=== PATIENT | female | born 1995 | race Caucasian/White ===

== ENCOUNTER 2016-10-02 15:01 | Inpatient (IN) | payer OTHER ==
--- NOTE | 2016-10-02 15:22 | ED ---
General Adult HPI - General Chief complaint: Psychiatric Symptoms Stated complaint: suicidal/arm lac Time Seen by Provider: 10/02/16 15:18 Source: patient, RN notes reviewed Mode of arrival: ambulatory Limitations: no limitations - History of Present Illness Initial comments: Patient 21-year-old female who presents emergency room today with a chief complaint of suicidal ideation. Does admit that she's been having thoughts of hurting herself. She is been a cutter. Does admit that she cut her left wrist earlier today. She does admit that she was having thoughts of committing suicide by taking her pills. She states she's attempted this in the past of her pills are locked up she was unable to do this. She does admit that she is new to the area. She does admit that she's been taking medications as prescribed. She denies any homicidal thoughts or plans. Denies any other physical complaints. States her tetanus is up-to-date. Patient denies any recent fever, chills, shortness of breath, chest pain, back pain, abdominal pain , nausea or vomiting, numbness or tingling, dysuria or hematuria, constipation or diarrhea, headaches or visual changes, or any other complaints. - Related Data Home Medications Medication Instructions Recorded Confirmed Desvenlafaxine Succinate [Pristiq 100 mg PO HS 10/02/16 10/02/16 ER] FLUoxetine HCL [PROzac] 20 mg PO HS 10/02/16 10/02/16 OLANZapine [ZyPREXA] 5 mg PO HS 10/02/16 10/02/16 OLANZapine [ZyPREXA] 20 mg PO HS 10/02/16 10/02/16 Topiramate [Topamax] 25 mg PO HS 10/02/16 10/02/16 lamoTRIgine [LaMICtal] 250 mg PO HS 10/02/16 10/02/16 Allergies Allergy/AdvReac Type Severity Reaction Status Date / Time Old [place] Seasoning Allergy Unknown Uncoded 10/02/16 15:58 Review of Systems ROS Statement: Those systems with pertinent positive or pertinent negative responses have been documented in the HPI. ROS Other: All systems not noted in ROS Statement are negative. Past Medical History Past Medical History: No Reported History History of Any Multi-Drug Resistant Organisms: None Reported Past Surgical History: No Surgical Hx Reported Past Psychological History: Anxiety, Depression Smoking Status: Current every day smoker Past Alcohol Use History: None Reported Past Drug Use History: None Reported General Exam - General Exam Comments Initial Comments: General: The patient is awake and alert, in no distress, and does not appear acutely ill. Eye: Pupils are equal, round and reactive to light, extra-ocular movements are intact. No nystagmus. There is normal conjunctiva bilaterally. No signs of icterus. Ears, nose, mouth and throat: There are moist mucous membranes and no oral lesions. Neck: The neck is supple, there is no tenderness or JVD. Cardiovascular: There is a regular rate and rhythm. No murmur, rub or gallop is appreciated. Respiratory: Lungs are clear to auscultation, respirations are non-labored, breath sounds are equal. No wheezes, stridor, rales, or rhonchi. Musculoskeletal: Normal ROM, no tenderness. Strength 5/5. Sensation intact. Pulses equal bilaterally 2+. Neurological: A&O x 3. CN II-XII intact, There are no obvious motor or sensory deficits. Coordination appears grossly intact. Speech is normal. Skin: Vision does have multiple superficial lacerations to the left wrist area. There is approximately 4 running horizontally measuring approximately 3 cm each. There is one running vertically measuring approximately 6 cm. Lacerations are superficial with no active bleeding. No deep tissue involvement. Psychiatric: Cooperative, appropriate mood & affect, normal judgment. Limitations: no limitations Course Vital Signs 10/02/16 15:12 Temperature 100.0 F H Pulse Rate 97 Respiratory 20 Rate Blood Pressure 130/78 O2 Sat by Pulse 96 Oximetry Medical Decision Making - Medical Decision Making Is was seen here by psych services and they recommended admission to the hospital. Patient is aware the plan and will be admitted. Patient's wounds to the left wrist were cleaned by nursing staff and had bacitracin placed over place with a sterile dressing. - Lab Data Lab Results 10/02/16 10/02/16 Range/Units 15:15 15:15 Urine HCG, Qual Not Detected (Not Detectd) Urine Opiates Screen Not Detected (NotDetected) Ur Oxycodone Screen Not Detected (NotDetected) Urine Methadone Screen Not Detected (NotDetected) Ur Propoxyphene Screen Not Detected (NotDetected) Ur Barbiturates Screen Not Detected (NotDetected) U Tricyclic Antidepress Not Detected (NotDetected) Ur Phencyclidine Scrn Not Detected (NotDetected) Ur Amphetamines Screen Not Detected (NotDetected) U Methamphetamines Scrn Not Detected (NotDetected) U Benzodiazepines Scrn Not Detected (NotDetected) Urine Cocaine Screen Not Detected (NotDetected) U Marijuana (THC) Screen Not Detected (NotDetected) Disposition Clinical Impression: Suicidal ideation Disposition: TRANSFER TO PSYCH HOSP/UNIT Condition: Stable Referrals: None,Stated [REFERRING] - 1-2 days Time of Disposition: 17:55
[2016-10-02] MEDS ORDERED: NICOTINE 14MG/24HR PATCH TRANSDERM STA (17:53)
[2016-10-02] MEDS ORDERED: ACETAMINOPHEN TAB 325 MG TAB PO PRN (19:29)
[2016-10-02] MEDS ORDERED: MAGNESIUM HYDROXIDE 2,400 MG/10 ML CUP PO PRN (19:29)
[2016-10-02] MEDS ORDERED: MAG HYDROX/AL HYDROX/SIMETH 30 ML CUP PO PRN (19:29)
[2016-10-02 19:54] LABS: Appearance,Urine Turbid (Clear); Bilirubin,Urine Negative (Negative); Glucose,Urine (UA) Negative (Negative); Ketones,Urine Negative (Negative); Leukocyte Esterase,Urine Large (Negative); Mucus,Urine Few /hpf; Nitrite,Urine Negative (Negative); PH, Urine 6.5 (5.0-8.0); Particle Count 22949; Protein,Urine 1+ (Negative); RBC,Urine 2 /hpf (0-5); Specific Gravity,Urine 1.023 (1.001-1.035); Squamous Epithelial Cell,Urine 34 /hpf (0-4); UA Billing (MACRO vs. MICRO) MICRO; Urobilinogen,Urine <2.0 mg/dL (<2.0); WBC,Urine 25 /hpf (0-5)
[2016-10-02] MEDS: lamoTRIgine 100 MG TAB PO SCH (21:21)
[2016-10-02] MEDS: TOPIRAMATE 25 MG TAB PO SCH (21:22)
[2016-10-02] MEDS: OLANZapine 10 MG TAB PO SCH (21:22)
[2016-10-02] MEDS: OLANZapine 5 MG TAB PO SCH (21:22)
[2016-10-03] MEDS: DESVENLAFAXINE SUCCINATE 50 MG TAB.ER.24H PO SCH ×2 (00:29→22:20)
[2016-10-03 08:39] LABS: Basophils % (A) 0 %; CHCM 32.9; Eosinophils % (A) 0 %; HCT 45.7 % (34.0-46.0); HDW 2.54; Luc # (Auto) 0.13; Luc % (Auto) 2; Lymphocytes # (A) 2.3 k/uL (1.0-4.8); Lymphocytes % (A) 43 %; MCHC 32.7 g/dL (31.0-37.0); MCV 88.6 fL (80.0-100.0); Mean Platelet Volume 6.8; Monocytes # (A) 0.3 k/uL (0-1.0); Monocytes % (A) 5 %; Neutrophils # (A) 2.6 k/uL (1.3-7.7); Neutrophils % (A) 49 %; RBC 5.16 m/uL (3.80-5.40); RDW 12.8 % (11.5-15.5); WBC 5.3 k/uL (4.0-11.0); WBC (Perox) 5.37
[2016-10-03 09:02] LABS: ALT 131 U/L (9-52); AST 89 U/L (14-36); Alkaline Phosphatase 107 U/L (38-126); Anion Gap 12 mmol/L; Blood Urea Nitrogen 12 mg/dL (7-17); Calcium 10.1 mg/dL (8.4-10.2); Carbon Dioxide 26 mmol/L (22-30); Chloride 105 mmol/L (98-107); Glucose 98 mg/dL (74-99); Non-African American GFR(MDRD) >60 (>60 ml/min/1.73 sqM); Sodium 143 mmol/L (137-145); Total Bilirubin 0.6 mg/dL (0.2-1.3)
[2016-10-03] MEDS: NICOTINE 14MG/24HR PATCH TRANSDERM SCH (09:24)
[2016-10-03 10:00] LABS: Total Protein 7.8 g/dL (6.3-8.2)
[2016-10-03] MEDS ORDERED: LEVOFLOXACIN 500 MG TAB PO SCH (17:00)
--- NOTE | 2016-10-03 20:14 | CONS ---
Erik Silver is a 21 year old female who presented to the ED at [facility] with suicidal ideations. She had been having thoughts of hurting herself. She had a cutter and she cut her wrists earlier today. She subsequently was admitted for further evaluation and management. Her past medical history is positive for anxiety depression. She is a current every day smoker and it was thought that she may have been starting either asthma or COPD. Family history is negative for asthma and COPD. Medications prior to admission were: 1. ( ). 2. ( ). 3. Fluoxetine. 4. ( ). 5. Topamax. Review of systems is noncontributory. On physical examination, blood pressure 100/59. Respiratory rate is 15. Pulse rate 114. Temperature 97.1. T-max of 100 degrees Fahrenheit. HEENT is unremarkable. Chest is clear. Cardiovascular system reveals S1, S2. Abdomen is soft. There is no pedal edema. UA shows large leukocyte esterase. White count is 5.3. Hemoglobin 15. Sodium 143. Potassium 4. Chloride 105. Bicarb 26. BUN 12, creatinine 0.92. AST 89. ALT 131. IMPRESSION: 1. Depression with suicidal ideation. 2. Urinary tract infection. At this point in time, would add Levaquin to her regimen. Check urine C&S. Continue nicotine patch. Depending on how she does, we shall make further changes to her care. NINO
[2016-10-03] MEDS: OLANZapine 10 MG TAB PO SCH (22:20)
[2016-10-03] MEDS: OLANZapine 5 MG TAB PO SCH (22:20)
[2016-10-03] MEDS: lamoTRIgine 100 MG TAB PO SCH (22:20)
[2016-10-03] MEDS: TOPIRAMATE 25 MG TAB PO SCH (22:26)
[2016-10-04 06:35] VITALS: BP 111/71; PULSE 85; RESP 17; TEMP 97.9
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
[2016-10-04] MEDS: NICOTINE 14MG/24HR PATCH TRANSDERM SCH ×2 (10:18→10:48)
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
== END 2016-10-04 15:27 | disposition home or self-care (01) | DRG 883 ==
LOC: EC 15:01 → 3MHU 19:12
PROVIDERS: ADMIT Psychiatry & Neurology Addiction Medicine; ATTEND Psychiatry & Neurology Addiction Medicine
DX: F60.3 Borderline personality disorder (principal); R45.851 Suicidal ideations; N39.0 Urinary tract infection, site not specified; F32.9 Major depressive disorder, single episode, unspecified; S61.512A Laceration without foreign body of left wrist, initial encounter; F17.200 Nicotine dependence, unspecified, uncomplicated; X78.8XXA Intentional self-harm by other sharp object, initial encounter; Z79.899 Other long term (current) drug therapy
CPT/HCPCS: 80053; 80306; 81001; 81025; 82075; 84443; 85025; 99285

== ENCOUNTER 2016-12-10 07:23 | Emergency (ER) | payer OTHER ==
[2016-12-10 07:28] VITALS: RESP 18
[2016-12-10] MEDS ORDERED: DEXAMETHASONE SOD PHOSPHATE 10 MG/ML 1 ML VIAL IM STA (07:47)
[2016-12-10] MEDS ORDERED: IPRATROPIUM-ALBUTEROL 3 ML NEB INHALATION STA (07:47)
--- NOTE | 2016-12-10 07:51 | ED ---
General Adult HPI - General Chief complaint: Nausea/Vomiting/Diarrhea Stated complaint: vomiting Time Seen by Provider: 12/10/16 07:34 Source: patient, RN notes reviewed Mode of arrival: ambulatory Limitations: no limitations - History of Present Illness Initial comments: 21-year-old female presents with 2 day history of cough and mild sore throat. Patient has past medical history of schizophrenia and depression. Her main concern and reason for evaluation once episode of hemoptysis. Patient states she had a coughing spell, was followed by an episode of vomiting which had some small amount of blood in it. Patient reports after this episode she began coughing again there was blood-tinged mucus. Patient denies fever or chills. Denies abdominal pain. Denies difficulty breathing. Patient has no history of asthma. Denies calf tenderness. - Related Data Home Medications Medication Instructions Recorded Confirmed Desvenlafaxine Succinate [Pristiq 100 mg PO HS 10/02/16 10/02/16 ER] FLUoxetine HCL [PROzac] 20 mg PO HS 10/02/16 10/02/16 OLANZapine [ZyPREXA] 5 mg PO HS 10/02/16 10/02/16 OLANZapine [ZyPREXA] 20 mg PO HS 10/02/16 10/02/16 Topiramate [Topamax] 25 mg PO HS 10/02/16 10/02/16 lamoTRIgine [LaMICtal] 250 mg PO HS 10/02/16 10/02/16 Previous Rx's Medication Instructions Recorded Levofloxacin [Levaquin] 500 mg PO Q24H #9 tab 10/04/16 Azithromycin [Zithromax Z-pack] 0 mg PO DIRECTED #6 tab 12/10/16 Allergies Allergy/AdvReac Type Severity Reaction Status Date / Time [facility] Seasoning Allergy Unknown Uncoded 12/10/16 07:28 Review of Systems ROS Statement: Those systems with pertinent positive or pertinent negative responses have been documented in the HPI. ROS Other: All systems not noted in ROS Statement are negative. Past Medical History Past Medical History: No Reported History History of Any Multi-Drug Resistant Organisms: None Reported Past Surgical History: No Surgical Hx Reported Past Psychological History: Anxiety, Depression Smoking Status: Current every day smoker Past Alcohol Use History: None Reported Past Drug Use History: None Reported General Exam Limitations: no limitations General appearance: alert, in no apparent distress Head exam: Present: atraumatic, normocephalic Eye exam: Present: normal appearance, PERRL ENT exam: Present: normal exam, mucous membranes moist, other (No pharyngeal erythema, no tonsillar swelling or exudate) Neck exam: Present: normal inspection. Absent: tenderness Respiratory exam: Present: normal lung sounds bilaterally, other ( Bronchospastic cough). Absent: respiratory distress Cardiovascular Exam: Present: regular rate, normal rhythm GI/Abdominal exam: Present: soft. Absent: distended, tenderness Extremities exam: Present: normal inspection, normal capillary refill. Absent: pedal edema, calf tenderness Back exam: Present: normal inspection Neurological exam: Present: alert, oriented X3 Psychiatric exam: Present: normal affect, normal mood Skin exam: Present: warm, dry. Absent: cyanosis, diaphoretic Course Vital Signs 12/10/16 12/10/16 12/10/16 07:27 08:07 08:15 Temperature 97.7 F Pulse Rate 75 80 80 Respiratory 18 Rate Blood Pressure 114/69 O2 Sat by Pulse 99 Oximetry - Reevaluation(s) Reevaluation #1: 12/10/16 08:19 Patient is given nebulized albuterol with improvement in bronchospastic cough Medical Decision Making - Medical Decision Making 21-year-old otherwise healthy female presents with episode of hemoptysis. Patient has had 2 day history of cough and mild sore throat. On examination patient is not in any distress. Lung sounds are clear bilaterally with good air entry, there is a bronchospastic cough. Heart rate and oxygen saturation are unremarkable. Exam of the posterior oropharynx is within normal limits. Patient is given nebulized albuterol with improvement of cough. Chest x-ray shows no acute process, no focal pneumonia. Patient will be treated for acute bronchitis. She'll follow-up with her primary care physician. Diagnosis: Acute bronchitis Disposition Clinical Impression: Acute bronchitis Disposition: HOME SELF-CARE Condition: Good Instructions: Acute Bronchitis (ED) Prescriptions: Azithromycin [Zithromax Z-pack] 0 mg PO DIRECTED #6 tab Referrals: None,Stated [Primary Care Provider] - 1-2 days Time of Disposition: 08:23
--- NOTE | 2016-12-10 08:14 | XR ---
EXAMINATION TYPE: XR chest 2V DATE OF EXAM: 12/10/2016 HISTORY: Pain. REFERENCE: NONE. FINDINGS: The lungs are clear. Pleural spaces are clear. The heart is not enlarged. No pneumothorax i s identified. IMPRESSION: NORMAL CHEST.
[2016-12-10 08:56] VITALS: BP 110/56; PULSE 69; TEMP 97
== END 2016-12-10 08:56 | disposition home or self-care (01) ==
LOC: EC 07:23
DX: J20.9 Acute bronchitis, unspecified (principal); F41.9 Anxiety disorder, unspecified; F32.9 Major depressive disorder, single episode, unspecified; F17.200 Nicotine dependence, unspecified, uncomplicated; Z79.899 Other long term (current) drug therapy; Z91.018 Allergy to other foods
CPT/HCPCS: 94640; 71020; 99284; 96372; J1100

== ENCOUNTER 2016-12-22 15:34 | Inpatient (IN) | payer OTHER ==
--- NOTE | 2016-12-22 16:23 | ED ---
Psych HPI - General Chief Complaint: Psychiatric Symptoms Stated Complaint: Mental Health. Wrist laceration Time Seen by Provider: 12/22/16 15:43 Source: patient, family, RN notes reviewed Mode of arrival: wheelchair Limitations: no limitations - History of Present Illness Initial Comments: This a 21-year-old female presents emergency Department with marked chief complaint depression, suicidal ideation, left arm lacerations. Patient has an extensive psychiatric history which includes major depressive disorder, drug overdoses, self harming. Patient states that she is depressed and suicidal though she is taking her medications are helping. Patient states she cut her left wrist 3 times with a razor blade. Patient is up-to-date on her tetanus. Patient states she does drink alcohol on a regular basis but states that she denies any illicit drug use. - Related Data Home Medications Medication Instructions Recorded Confirmed OLANZapine [ZyPREXA] 5 mg PO HS 10/02/16 12/22/16 OLANZapine [ZyPREXA] 20 mg PO HS 10/02/16 12/22/16 Topiramate [Topamax] 25 mg PO HS 10/02/16 12/22/16 FLUoxetine HCL [PROzac] 40 mg PO HS 12/22/16 12/22/16 buPROPion HCL [Wellbutrin SR] 150 mg PO BID 12/22/16 12/22/16 lamoTRIgine [LaMICtal Xr] 250 mg PO HS 12/22/16 12/22/16 Allergies Allergy/AdvReac Type Severity Reaction Status Date / Time [place] Seasoning Allergy Unknown Uncoded 12/22/16 16:07 Review of Systems ROS Statement: Those systems with pertinent positive or pertinent negative responses have been documented in the HPI. ROS Other: All systems not noted in ROS Statement are negative. Past Medical History Past Medical History: No Reported History Additional Past Medical History / Comment(s): codiene induced encephalapathy History of Any Multi-Drug Resistant Organisms: None Reported Past Surgical History: No Surgical Hx Reported Past Psychological History: Anxiety, Bipolar, Depression, Schizoaffective Disorder Smoking Status: Current every day smoker Past Alcohol Use History: None Reported Past Drug Use History: None Reported General Exam Limitations: no limitations General appearance: alert, in no apparent distress Head exam: Present: atraumatic, normocephalic, normal inspection Eye exam: Present: normal appearance, PERRL, EOMI. Absent: scleral icterus, conjunctival injection, periorbital swelling ENT exam: Present: normal exam, normal oropharynx, mucous membranes moist, TM's normal bilaterally, normal external ear exam Neck exam: Present: normal inspection, full ROM. Absent: tenderness, meningismus, lymphadenopathy Respiratory exam: Present: normal lung sounds bilaterally. Absent: respiratory distress, wheezes, rales, rhonchi, stridor Cardiovascular Exam: Present: regular rate, normal rhythm, normal heart sounds. Absent: systolic murmur, diastolic murmur, rubs, gallop, clicks Extremities exam: Present: other (Left wrist region, volar surface there are 2 lacerations that are 6 cm long, no deep tendon involvement) Course Vital Signs 12/22/16 15:36 Temperature 98.3 F Pulse Rate 100 Respiratory 18 Rate Blood Pressure 114/70 O2 Sat by Pulse 98 Oximetry Procedures - Laceration Laceration #1 Consent Obtained: verbal consent Indication: laceration Site: upper extremity (Left forearm) Size (cm): 6 Description: linear Depth: simple, single layer Anesthetic Used: lidocaine 1%, without epi Anesthesia Technique: local infiltration Amount (mls): 6 Pre-repair: wound explored, irrigated extensively, deep structures intact Type of Sutures: nylon Size of Sutures: 4-0 Number of Sutures: 12 Technique: simple, interrupted Patient Tolerated Procedure: well, no complications Laceration #2 Consent Obtained: verbal consent Indication: laceration Site: upper extremity (Left forearm, wrist region) Size (cm): 6 Description: linear Depth: simple, single layer Anesthetic Used: lidocaine 1%, without epi Anesthesia Technique: local infiltration Amount (mls): 5 Pre-repair: wound explored, irrigated extensively, deep structures intact Type of Sutures: nylon Size of Sutures: 4-0 Number of Sutures: 9 Technique: running Patient Tolerated Procedure: well, no complications Medical Decision Making - Lab Data Lab Results 12/22/16 Range/Units 17:45 Urine Opiates Screen Not Detected (NotDetected) Ur Oxycodone Screen Not Detected (NotDetected) Urine Methadone Screen Not Detected (NotDetected) Ur Propoxyphene Screen Not Detected (NotDetected) Ur Barbiturates Screen Not Detected (NotDetected) U Tricyclic Antidepress Not Detected (NotDetected) Ur Phencyclidine Scrn Not Detected (NotDetected) Ur Amphetamines Screen Not Detected (NotDetected) U Methamphetamines Scrn Not Detected (NotDetected) U Benzodiazepines Scrn Not Detected (NotDetected) Urine Cocaine Screen Not Detected (NotDetected) U Marijuana (THC) Screen Not Detected (NotDetected) Disposition Clinical Impression: Suicidal ideation, Depression Disposition: ADMITTED IP TO THIS [facility] Condition: Stable Referrals: Kenyon Thakkar MD [Primary Care Provider] - 1-2 days
[2016-12-22 21:54] VITALS: BMI 36.2
[2016-12-22] MEDS ORDERED: MAGNESIUM HYDROXIDE 2,400 MG/10 ML CUP PO PRN (21:57)
[2016-12-22] MEDS ORDERED: LORazepam 1 MG TAB PO PRN (21:57)
[2016-12-22] MEDS ORDERED: ACETAMINOPHEN TAB 325 MG TAB PO PRN (21:57)
[2016-12-22] MEDS ORDERED: MAG HYDROX/AL HYDROX/SIMETH 30 ML CUP PO PRN (21:57)
[2016-12-23] MEDS ORDERED: buPROPion SR 150 MG TABLET.ER PO SCH (09:00)
[2016-12-23] MEDS: lamoTRIgine 100 MG TAB PO SCH ×2 (09:01→20:09)
[2016-12-23] MEDS: lamoTRIgine 25 MG TAB PO SCH ×2 (09:01→20:09)
[2016-12-23] MEDS: NICOTINE 14MG/24HR PATCH TRANSDERM SCH (09:01)
[2016-12-23 09:38] LABS: Basophils % (A) 0 %; CH 30.8; CHCM 33.4; Eosinophils % (A) 0 %; HCT 42.3 % (34.0-46.0); HDW 2.31; HGB 13.9 gm/dL (11.4-16.0); Luc # (Auto) 0.09; Luc % (Auto) 2; Lymphocytes # (A) 1.8 k/uL (1.0-4.8); Lymphocytes % (A) 31 %; MCH 30.4 pg (25.0-35.0); MCHC 32.8 g/dL (31.0-37.0); MCV 92.6 fL (80.0-100.0); Mean Platelet Volume 7.4; Monocytes # (A) 0.4 k/uL (0-1.0); Monocytes % (A) 7 %; Neutrophils # (A) 3.6 k/uL (1.3-7.7); Neutrophils % (A) 61 %; RBC 4.57 m/uL (3.80-5.40); RDW 14.1 % (11.5-15.5); WBC 5.9 k/uL (4.0-11.0); WBC (Perox) 5.97
[2016-12-23 10:15] LABS: ALT 61 U/L (9-52); AST 32 U/L (14-36); Alkaline Phosphatase 97 U/L (38-126); Anion Gap 12 mmol/L; Blood Urea Nitrogen 12 mg/dL (7-17); Calcium 9.6 mg/dL (8.4-10.2); Carbon Dioxide 24 mmol/L (22-30); Chloride 103 mmol/L (98-107); Glucose 114 mg/dL (74-99); Non-African American GFR(MDRD) >60 (>60 ml/min/1.73 sqM); Potassium 3.6 mmol/L (3.5-5.1); Sodium 139 mmol/L (137-145); Total Bilirubin 0.5 mg/dL (0.2-1.3); Total Protein 7.2 g/dL (6.3-8.2)
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
--- NOTE | 2016-12-23 17:59 | CONS ---
CONSULTATION CHIEF COMPLAINT: Major depression with cutting. HISTORY OF PRESENT ILLNESS: This is another admission this 21-year-old, A0 white female who presents to the emergency room on her own volition because of depression and she started cutting her left forearm. She has had a long history of psychiatric issues and is diagnosed as having bipolar depression. She is on Topamax 25 mg q.h.s., Ventolin HFA, Zyprexa 25 mg at bedtime, Lamictal 250 mg at night. REVIEW OF SYSTEMS: She has had no headaches, change in vision or the hearing, chest pain, no cough, shortness of breath, hemoptysis, hypertension, heart disease, murmurs, rheumatic fever, abdominal pain, nausea, vomiting, diarrhea, melena, hematochezia, jaundice, hematuria, frequency, urgency, renal disease, diabetes, etc. PAST MEDICAL HISTORY: Past Medical history, family history, Personal and social history reveal she is not allergic to any medication. She does not smoke. She recently had Wellbutrin added to her med regimen. PHYSICAL EXAM: Blood pressure 108/88, pulse 86, respirations 16, temperature 95.4. General she appeared to be slightly overweight in no acute distress. Skin color is normal. Skin is warm, dry. Lymph nodes not enlarged. Head, ears, eyes, nose, mouth and throat were normal. Neck veins not distended. Thyroid is not enlarged. Chest is clear. Cardiac exam is normal. Abdomen soft nontender. Extremities normal. Neurological is intact. ASSESSMENT: She was admitted to the hospital with diagnoses of: 1. Acute episode of depression. 2. Bipolar depression. 3. Asthmatic bronchitis. RECOMMENDATIONS: None. MMODL / IJN: [id number] /
[2016-12-23] MEDS: FLUoxetine HCL 20 MG CAP PO SCH (20:08)
[2016-12-23] MEDS: OLANZapine 5 MG TAB PO SCH (20:09)
[2016-12-23] MEDS: OLANZapine 10 MG TAB PO SCH (20:09)
[2016-12-23] MEDS ORDERED: FLUoxetine HCL 20 MG CAP PO SCH (21:00)
[2016-12-23] MEDS ORDERED: TOPIRAMATE 25 MG TAB PO SCH (21:00)
[2016-12-24] MEDS: NICOTINE 14MG/24HR PATCH TRANSDERM SCH (08:02)
[2016-12-24] MEDS: lamoTRIgine 100 MG TAB PO SCH ×2 (08:02→20:42)
[2016-12-24] MEDS: lamoTRIgine 25 MG TAB PO SCH ×2 (08:03→20:42)
[2016-12-24] MEDS: buPROPion SR 150 MG TABLET.ER PO SCH (08:03)
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
[2016-12-24] MEDS: OLANZapine 5 MG TAB PO SCH (20:42)
[2016-12-24] MEDS: FLUoxetine HCL 20 MG CAP PO SCH (20:42)
[2016-12-24] MEDS: OLANZapine 10 MG TAB PO SCH (20:42)
[2016-12-25] MEDS: lamoTRIgine 25 MG TAB PO SCH ×2 (09:28→20:20)
[2016-12-25] MEDS: NICOTINE 14MG/24HR PATCH TRANSDERM SCH (09:28)
[2016-12-25] MEDS: buPROPion SR 150 MG TABLET.ER PO SCH (09:29)
[2016-12-25] MEDS: lamoTRIgine 100 MG TAB PO SCH ×2 (09:29→20:20)
--- NOTE | 2016-12-25 12:03 | P.PN ---
Progress Note - Text Interval history: The patient is found in her room lying in bed she follows me to an interview room. She reports her mood is "fine". She states her mother did visit last evening and they discussed outpatient plans. The patient would like to return to her mother's home however it appears her mother may have some apprehension. The patient reports participating in some groups. Appetite stable she was able to get some fragmented sleep but there were disturbances on the mental health unit last evening. She has no questions or concerns regarding her current medications. Mental status exam: The patient is an overweight female dressed in her own clothing. Hygiene grooming adequate. In general she is cooperative but participates in the session in a limited fashion. She mainly answers questions asked of her. She states she is experiencing no suicidal or homicidal ideation intent or plan, she reports no auditory or visual hallucinations or specific delusions. There is no observable evidence of psychosis. She demonstrates no tangential thinking loose associations or quite of ideas, she does not appear hypomanic or manic. Insight and judgment limited. She demonstrates no abnormal involuntary movements. She demonstrates no verbal or physical aggressiveness. Her affect is rather bland throughout the session with little reactivity. Plan: The patient will continue on her current psychotropic medications. She is encouraged to fully participate in the milieu. Vital signs reviewed. We will continue to monitor her for safety.
[2016-12-25] MEDS: OLANZapine 10 MG TAB PO SCH (20:20)
[2016-12-25] MEDS: FLUoxetine HCL 20 MG CAP PO SCH (20:21)
[2016-12-25] MEDS: OLANZapine 5 MG TAB PO SCH (20:22)
[2016-12-26] MEDS: lamoTRIgine 25 MG TAB PO SCH (08:44)
[2016-12-26] MEDS: lamoTRIgine 100 MG TAB PO SCH ×2 (08:44→21:22)
[2016-12-26] MEDS: NICOTINE 14MG/24HR PATCH TRANSDERM SCH (08:44)
[2016-12-26] MEDS: buPROPion SR 150 MG TABLET.ER PO SCH (08:44)
--- NOTE | 2016-12-26 15:06 | PN ---
PROGRESS NOTE DATE OF SERVICE: 12/26/2016 CHIEF COMPLAINT: The patient was depressed. She has long-term difficulty with mood disorder. She has had multiple past drug overdoses. She had suicidal thinking and had cut her left wrist 3 times leading up to this hospitalization. INTERVAL HISTORY: Patient has been doing fair as noted from progress notes of Dr. Hameed. She did fairly well over the weekend. She felt there was a stressful family meeting on Monday with her and her mother. Over the weekend her and her mother talked and seemed to make progress in terms of better communication. On Monday she had a distressing event in that the woman that she described as her "fiance" called and broke up with her. Apparently, the woman said some harsh things over the telephone. On the other hand, the person then visited on the weekend and they seem to be a little more relaxed in their interactions, though the plan was to continue to disconnect in their relationship. Patient slept fair amount on the weekend. She continues to report some depressive symptoms. We had a family meeting with the patient and her mother today. It is noteworthy that they did seem to have better communication where the mother was able to be a little more reserved in her input it is noted that father has a court hearing tomorrow in regards to the no-contact order did make contact with the courts to request the possibility of a family meeting involving the father, in addition I gave information to the courts that the patient is in support of the lifting of the no- contact order. At this point mother indicated that if the contact order continues, that the patient would need to find alternative housing as it appeared to be difficult that father would be able to find a place outside of the house. Otherwise, the plan was for the patient to move back home. We discussed a number of issues in regards to planning and followup care if the patient does return home. The patient has not had change in her general health. She tolerates his psychotropic medications. MENTAL STATUS: Patient gave fair eye contact. Psychomotor activity was a little slow, speech was somewhat monotone. She answered questions with direct responses. Her thoughts were clear, her affect was a little blunted. She had a quiet manner. Her mood was even. She was not significantly distressed. ASSESSMENT: I will continue the current diagnosis and treatment plan. I will discontinue Wellbutrin since the aim at this point is to maximize her antidepressant. I will reduce her Zyprexa from 25 mg a day down to 20 mg a day, in part to try to simplify her medications and she does have some trouble managing her medications at home. Likewise, I will reduce her Lamictal from 125 mg twice a day down to 100 mg twice a day. She will continue Prozac 60 mg a day. There might be consideration for titrating up on Prozac. We will see if were able to set up a family meeting involving the father as part of discharge planning. I had an extensive discussion with the patient regarding interventions that may help her overall condition. One would be a walking program to help improve energy and motivation. We discussed the option of her setting up an appointment with Dr. Esquivel, [facility] who did general psych testing to get a further review and to get some input on interventions for the areas that she has weakness. We discussed the option of some Internet judy as well as some physical activity that might help in areas where she has had some deficits. We talked about her getting a daily operations planner so that she can help organize things and be a little more self directive as opposed to getting in a situation where she becomes overly dependent on her mother, which seems to create stressful for her and her mother. Once we did make a determination about housing issues, we would look for discharge in the next few days. CHUCK / CAROLINE: [id number] /
[2016-12-26] MEDS: FLUoxetine HCL 20 MG CAP PO SCH (21:21)
[2016-12-26] MEDS: OLANZapine 10 MG TAB PO SCH (21:22)
[2016-12-27] MEDS: NICOTINE 14MG/24HR PATCH TRANSDERM SCH (09:50)
[2016-12-27] MEDS: lamoTRIgine 100 MG TAB PO SCH ×2 (09:50→20:45)
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
[2016-12-27] MEDS: FLUoxetine HCL 20 MG CAP PO SCH (20:44)
[2016-12-27] MEDS: OLANZapine 10 MG TAB PO SCH (20:45)
[2016-12-27] MEDS ORDERED: OLANZapine 5 MG TAB PO SCH (21:00)
[2016-12-28 06:40] VITALS: BP 107/72; PULSE 67; RESP 16; TEMP 97.4
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
[2016-12-28] MEDS: NICOTINE 14MG/24HR PATCH TRANSDERM SCH (09:18)
[2016-12-28] MEDS: lamoTRIgine 100 MG TAB PO SCH (09:18)
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
== END 2016-12-28 16:55 | disposition home or self-care (01) | DRG 885 ==
LOC: EC 15:34 → 3MHU 20:24
PROVIDERS: ADMIT Psychiatry & Neurology Psychiatry; ATTEND Psychiatry & Neurology Psychiatry
PROC: 0HQEXZZ Repair Left Lower Arm Skin, External Approach (ICD-10-PCS; principal; 2016-12-22)
DX: F33.2 Major depressive disorder, recurrent severe without psychotic features (principal); R45.851 Suicidal ideations; F25.9 Schizoaffective disorder, unspecified; F17.200 Nicotine dependence, unspecified, uncomplicated; S51.812A Laceration without foreign body of left forearm, initial encounter; S61.512A Laceration without foreign body of left wrist, initial encounter; F43.10 Post-traumatic stress disorder, unspecified; F90.9 Attention-deficit hyperactivity disorder, unspecified type; F41.9 Anxiety disorder, unspecified; G47.9 Sleep disorder, unspecified; G31.84 Mild cognitive impairment of uncertain or unknown etiology; J45.909 Unspecified asthma, uncomplicated; E66.3 Overweight; Z79.899 Other long term (current) drug therapy; Z91.5 Personal history of self-harm; Z62.810 Personal history of physical and sexual abuse in childhood; X78.9XXA Intentional self-harm by unspecified sharp object, initial encounter; Y04.0XXA Assault by unarmed brawl or fight, initial encounter
CPT/HCPCS: 12004; 80053; 80306; 82075; 84443; 85025; 99285

== ENCOUNTER 2017-04-11 04:13 | Inpatient (IN) | payer OTHER ==
[2017-04-11] MEDS ORDERED: SODIUM CHLORIDE 0.9% 500 ML IV STA (04:33)
[2017-04-11] MEDS ORDERED: LORazepam 2 MG/ML INJ IV STA ×2 (04:44→22:33)
[2017-04-11] MEDS ORDERED: TOPICAL SKIN ADHESIVE 1 EACH AMP TOPICAL ONE ×2 (04:45)
[2017-04-11 04:50] LABS: Basophils % (A) 0 %; Eosinophils % (A) 0 %; HCT 41.1 % (34.0-46.0); HGB 13.6 gm/dL (11.4-16.0); Lymphocytes # (A) 1.9 k/uL (1.0-4.8); Lymphocytes % (A) 31 %; MCH 29.7 pg (25.0-35.0); MCHC 33.2 g/dL (31.0-37.0); MCV 89.4 fL (80.0-100.0); Mean Platelet Volume 6.7; Monocytes # (A) 0.5 k/uL (0-1.0); Monocytes % (A) 8 %; Neutrophils # (A) 3.6 k/uL (1.3-7.7); Neutrophils % (A) 58 %; Platelet Count 257 k/uL (150-450); RDW 12.2 % (11.5-15.5); WBC 6.2 k/uL (4.0-11.0)
[2017-04-11 05:03] LABS: ALT 53 U/L (9-52); AST 26 U/L (14-36); Acetaminophen <10.0 ug/mL; Albumin 3.9 g/dL (3.5-5.0); Alcohol <10 mg/dL; Alkaline Phosphatase 89 U/L (38-126); Anion Gap 11 mmol/L; Blood Urea Nitrogen 16 mg/dL (7-17); Calcium 9.9 mg/dL (8.4-10.2); Carbon Dioxide 25 mmol/L (22-30); Chloride 106 mmol/L (98-107); Glucose 104 mg/dL (74-99); Potassium 3.7 mmol/L (3.5-5.1); Salicylate <1.0 mg/dL; Sodium 142 mmol/L (137-145); Total Bilirubin 0.2 mg/dL (0.2-1.3); Total Protein 6.7 g/dL (6.3-8.2)
[2017-04-11 06:30] LABS: Amphetamine Screen,Urine Not Detected (NotDetected); Barbiturate Screen,Urine Not Detected (NotDetected); Benzodiazepines Screen,Urine Detected (NotDetected); Cocaine Screen,Urine Not Detected (NotDetected); Methadone Screen, Urine Not Detected (NotDetected); Opiate Screen,Urine Not Detected (NotDetected); Oxycodone Screen, Urine Not Detected (NotDetected); Phencyclidine Screen,Urine Not Detected (NotDetected); Tricyclic Antidepressant,Urine Detected (NotDetected); Urn Cannabinoid Scrn Not Detected (NotDetected)
[2017-04-11] MEDS ORDERED: NALOXONE 0.4 MG/ML 1 ML VIAL IV PRN (06:46)
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
[2017-04-11] MEDS: SODIUM CHLORIDE 0.9% 1,000 ML IV SCH ×2 (07:00→20:00)
[2017-04-11] MEDS: FAMOTIDINE 20 MG/2 ML VIAL IV SCH ×2 (10:18→21:02)
[2017-04-11] MEDS ORDERED: IPRATROPIUM-ALBUTEROL 3 ML NEB INHALATION PRN (10:47)
--- NOTE | 2017-04-11 10:48 | P.CNPUL ---
<ErickDelilah darling - Last Filed: 04/11/17 10:30> History of Present Illness Consult date: 04/11/17 Requesting physician: Kenyon Thakkar Reason for consult: other Chief complaint: Suicide attempt History of present illness: This is a 21-year-old female patient with a known history of chronic major recurrent depression. She is also a cutter. She has had approximately 10 suicide attempts in the past. She was most recently hospitalized here in December 2016. She and her parents had recently moved to the [facility] back in July 2016. Prior to that she had been treated by psychiatrists and both [facility]. She was brought in here to the emergency room approximate 4:30 this morning after calling her parents from her bedroom stating that she took multiple pills in an attempt to harm her self. There is also some self-inflicted lacerations of the left wrist. She is seen in consultation in the emergency room. She is still somewhat obtunded. She is able to protect her airways currently. Maintain O2 saturations in the high 90s on 2 L/m per nasal cannula. She slightly tachycardic sinus. Her EKG is reviewed. No prolongation of the QT interval noted. She's been hemodynamically stable. Her CBC and electrolyte profile are within normal limits. Creatinine 0.79. Urine hCG was negative., Alcohol level was less than 10. Urine drug screen is positive for tricyclic antidepressants and benzodiazepines. Review of Systems ROS unobtainable: due to mental status Past Medical History Past Medical History: No Reported History Additional Past Medical History / Comment(s): codiene induced encephalapathy History of Any Multi-Drug Resistant Organisms: None Reported Past Surgical History: No Surgical Hx Reported Past Psychological History: Anxiety, Bipolar, Depression, Schizoaffective Disorder Smoking Status: Current every day smoker Past Alcohol Use History: Occasional Past Drug Use History: None Reported Medications and Allergies Home Medications Medication Instructions Recorded Confirmed Type FLUoxetine HCL [PROzac] 60 mg PO HS #90 cap 12/28/16 04/11/17 Rx OLANZapine [ZyPREXA] 5 mg PO HS #30 tab 12/28/16 04/11/17 Rx OLANZapine [ZyPREXA] 20 mg PO HS #30 tab 12/28/16 04/11/17 Rx Naproxen [Naprosyn] 500 mg PO BID PRN 04/11/17 04/11/17 History lamoTRIgine 200 mg PO HS 04/11/17 04/11/17 History Allergies Allergy/AdvReac Type Severity Reaction Status Date / Time amoxicillin Allergy Rash/Hives Verified 04/11/17 07:21 Physical Exam Vitals: Vital Signs Temp Pulse Resp BP Pulse Ox 04/11/17 10:00 110 H 20 103/71 98 04/11/17 09:30 106 H 20 109/57 98 04/11/17 09:03 104 H 18 114/57 98 04/11/17 08:36 110 H 18 110/55 98 04/11/17 07:05 111 H 18 105/57 96 04/11/17 06:40 118 H 20 109/53 97 04/11/17 06:26 113 H 20 115/55 97 04/11/17 05:48 108 H 18 142/58 97 04/11/17 04:43 96.6 F L 114 H 18 133/57 97 Intake and Output 04/10/17 04/11/17 04/11/17 22:59 06:59 14:59 Other: Weight 81.647 kg GENERAL EXAM: Responding to painful stimuli, obtunded. HEAD: Normocephalic. EYES: Sluggish reaction of pupils, equal size. NOSE: Clear with pink turbinates. THROAT: No erythema or exudates. NECK: No masses, no JVD. CHEST: No chest wall deformity. LUNGS: Equal air entry with faint end expiratory wheeze. CVS: S1 and S2 normal with no audible murmur, regular rhythm. ABDOMEN: No hepatosplenomegaly, normal bowel sounds, no guarding or rigidity. SPINE: No scoliosis or deformity SKIN: No rashes CENTRAL NERVOUS SYSTEM: No focal deficits, tone is normal in all 4 extremities. EXTREMITIES: There is no peripheral edema. No clubbing, no cyanosis. Peripheral pulses are intact. Results - Laboratory Findings CBC and BMP: 04/11/17 04:42 04/11/17 04:42 Abnormal lab findings: Abnormal Labs 04/11/17 04/11/17 04:42 06:08 Glucose 104 H ALT 53 H U Tricyclic Antidepress Detected H U Benzodiazepines Scrn Detected H Assessment and Plan Assessment: Impression: #1 Suicide attempt with urine drug screen positive for tricyclic antidepressants and benzodiazepines. The patient has a history of major recurrent depressions with exacerbations and multiple approximately 10 suicide attempts in the past. #2 History of posttraumatic stress disorder. 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 Plan: The patient was seen and evaluated by Dr. Davila. We'll obtain a chest x- ray. We will initiate bronchodilators. We'll await placement into the intensive care unit. We'll continue to monitor her QT interval's. The patient does have a history of post suicide attempt seizures we'll utilize Ativan when necessary. Her parents are at the bedside and are agreeable to the plan. We' ll continue to follow and make further recommendations based on her clinical status. She'll require a sitter at the bedside 10/10. I, the cosigning physician, performed a history & physical examination of the patient. Lungs sounds have some bilateral wheezing. Maintaining good O2 saturations in the 90s on 2 L/m per nasal cannula. I discussed the assessment and plan of care with my nurse practitioner, Delilah Suarez. I attest to the above note as dictated by her. Time with Patient: Greater than 30 <Nba Davila - Last Filed: 04/11/17 19:13> Physical Exam Vitals: Vital Signs Temp Pulse Resp BP Pulse Ox 04/11/17 19:00 94 20 100/59 100 04/11/17 18:00 95 19 86/51 100 04/11/17 17:00 96 20 92/53 100 04/11/17 16:13 94 04/11/17 16:00 89 20 83/45 99 04/11/17 15:59 90 04/11/17 15:30 94 20 95/53 98 04/11/17 15:10 20 100 04/11/17 15:00 101 H 20 95/53 100 04/11/17 14:40 99.2 F 107 H 20 129/81 100 04/11/17 14:20 108 H 16 120/80 100 04/11/17 14:14 110 H 18 120/84 100 04/11/17 14:00 104 H 18 116/71 100 04/11/17 13:35 106 H 20 81/50 96 04/11/17 13:32 108 H 18 92/50 97 04/11/17 12:54 114 H 18 96/54 98 01/23/18 12:26 97 04/11/17 11:05 96 04/11/17 10:54 92 04/11/17 10:00 110 H 20 103/71 98 04/11/17 09:30 106 H 20 109/57 98 04/11/17 09:03 104 H 18 114/57 98 04/11/17 08:36 110 H 18 110/55 98 04/11/17 07:05 111 H 18 105/57 96 04/11/17 06:40 118 H 20 109/53 97 04/11/17 06:26 113 H 20 115/55 97 04/11/17 05:48 108 H 18 142/58 97 04/11/17 04:43 96.6 F L 114 H 18 133/57 97 Intake and Output 04/11/17 04/11/17 04/11/17 06:59 14:59 22:59 Intake Total 2375 Output Total 1546 Balance 829 Intake: IV 2375 Sodium Chloride 0.9% 1, 2375 000 ml @ 125 mls/hr IV . Q8H ON LICENSE OF [facility] Rx#:[id number] Output: Urine 1546 Other: Voiding Method Indwelling Catheter Weight 81.647 kg Results - Laboratory Findings CBC and BMP: 04/11/17 04:42 04/11/17 04:42 ABG ABG pH 7.34 (7.35-7.45) L 04/11/17 14:42 ABG pCO2 44 mmHg (35-45) 04/11/17 14:42 ABG pO2 321 mmHg (83-108) H 04/11/17 14:42 ABG O2 Saturation 100.0 % (94-97) H 04/11/17 14:42 Abnormal lab findings: Abnormal Labs 04/11/17 04/11/17 04/11/17 04:42 06:08 14:34 ABG pH ABG pO2 ABG Total CO2 ABG O2 Saturation Glucose 104 H POC Glucose (mg/dL) 111 H Plasma Lactic Acid Justin ALT 53 H Urine Protein U Tricyclic Antidepress Detected H U Benzodiazepines Scrn Detected H 04/11/17 04/11/17 04/11/17 14:42 16:25 16:25 ABG pH 7.34 L ABG pO2 321 H ABG Total CO2 25 H ABG O2 Saturation 100.0 H Glucose POC Glucose (mg/dL) Plasma Lactic Acid Justin 2.5 H* ALT Urine Protein Trace H U Tricyclic Antidepress U Benzodiazepines Scrn Assessment and Plan Assessment: This is a joint evaluation that was done and the emergency department along with a nurse practitioner. The patient was seen and examined. Family was interviewed. The patient is post suicide attempt with multidrug overdose. The medication that she took was a combination of Lamictal, Zyprexa and Prozac. The patient remains quite obtunded and the patient became progressively more short of breath and hypoxic and at one point she became briefly hypotensive. There was concern that the patient was not maintaining the patency of her airway and she would not be able to protect her airways. She had a week cough and a gag. She also had history of bronchial asthma and a chest x-ray was done upon my arrival showed a limited infiltration of the lung bases suspecting an underlying aspiration pneumonia. Early ARDS cannot be completely excluded as the patient was becoming progressively more hypoxic and short of breath. At that point I decided to intubate this patient and placed on mechanical ventilator. Post intubation chest x-ray showed some limited infiltration of the lung bases and there was improved aeration in lung bases and these findings could've been possibly atelectatic. I cover this patient with a combination of Levaquin and clindamycin for aspiration pneumonia. Put the patient on Diprivan for sedation. IV fluids. No pressors yet. The triple-lumen catheter was inserted. The patient got moved to the intensive care unit. The family was updated on her condition. We'll continue to follow. Condition is critical at this point. Lactic acid was obtained and was at 2.5. Blood gases was also noted.
--- NOTE | 2017-04-11 11:16 | XR ---
EXAMINATION TYPE: XR chest 1V portable DATE OF EXAM: 04/11/2017 COMPARISON: 12/10/2016 HISTORY: Aspiration TECHNIQUE: Single frontal view of the chest is obtained. FINDINGS: Perihilar infiltrates and more consolidative process left lower lobe noted. No pleural eff usion or pneumothorax. IMPRESSION: 1. Findings may represent aspiration pneumonia within the left lower lobe with superimposed venous co ngestion post aspiration. Correlate clinically.
[2017-04-11] MEDS ORDERED: IPRATROPIUM-ALBUTEROL 3 ML NEB INHALATION SCH (13:00)
[2017-04-11] MEDS ORDERED: SUCCINYLCHOLINE CHLORIDE 100 MG/5 ML SYR IV STA (14:00)
[2017-04-11] MEDS: LEVOFLOXACIN 750MG-D5W PMX 750 MG in DEXTROSE/WATER 1 150ML.BAG IVPB SCH (14:18)
--- NOTE | 2017-04-11 14:25 | XR ---
EXAMINATION TYPE: XR chest 1V portable DATE OF EXAM: 04/11/2017 COMPARISON: 04/11/2017 10:52 AM HISTORY: Line placement and tube placement TECHNIQUE: Single frontal view of the chest is obtained. FINDINGS: There is interval insertion of an endotracheal tube, appropriately placed terminating at t he level of the aortic arch approximately 1.8 cm from the johnathan. Enteric tube courses beyond the gas troesophageal junction loops beyond the [id number] with the Sissel tip oriented cephalad the regio n of gastric body, appropriately placed. Minimal bibasilar airspace disease is likely due to atelecta sis as there are overall low lung volumes. Cardiomediastinal silhouette is within normal limits. IMPRESSION: Interval insertion of appropriately placed enteric and endotracheal tubes. Bibasilar opa cities are favored to represent atelectasis as there are low lung volumes, however pneumonia is also possible.
[2017-04-11] MEDS ORDERED: PROPOFOL 1,000 MG in EMPTY BAG 1 BAG IV SCH (14:30)
[2017-04-11 14:44] LABS: Glucose,Whole Blood 111 mg/dL (75-99)
[2017-04-11 14:46] LABS: ABG Base Excess -2.6 mmol/L; ABG HCO3 23 mmol/L (21-25); ABG PCO2 44 mmHg (35-45); ABG PH 7.34 (7.35-7.45); ABG PO2 321 mmHg (83-108); ABG TCO2 25 mmol/L (19-24)
[2017-04-11] MEDS: HEPARIN SODIUM,PORCINE 5,000 UNIT/ML 1 ML VIAL SQ SCH (15:57)
[2017-04-11] MEDS: IPRATROPIUM-ALBUTEROL 3 ML NEB INHALATION SCH ×2 (15:58→19:43)
[2017-04-11] MEDS ORDERED: SODIUM CHLORIDE 0.9% 1,000 ML IV ONE ×2 (16:00→17:30)
[2017-04-11] MEDS: CLINDAMYCIN 600 MG in DEXTROSE 5% IN WATER 50 ML IVPB SCH ×2 (16:20)
[2017-04-11 16:56] LABS: Appearance,Urine Clear (Clear); Bilirubin,Urine Negative (Negative); Blood,Urine Negative (Negative); Color,Urine Yellow; Glucose,Urine (UA) Negative (Negative); Ketones,Urine Negative (Negative); Leukocyte Esterase,Urine Negative (Negative); Nitrite,Urine Negative (Negative); Protein,Urine Trace (Negative); Specific Gravity,Urine 1.019 (1.001-1.035); Urobilinogen,Urine <2.0 mg/dL (<2.0)
[2017-04-11] MEDS: PROPOFOL 1,000 MG in EMPTY BAG 1 BAG IV SCH (18:50)
[2017-04-11] MEDS: CHLORHEXIDINE GLUCONATE 15 ML CUP MUCOUS MEM SCH (20:27)
[2017-04-11 20:50] LABS: Anion Gap 11 mmol/L; Blood Urea Nitrogen 9 mg/dL (7-17); Calcium 8.4 mg/dL (8.4-10.2); Carbon Dioxide 21 mmol/L (22-30); Chloride 112 mmol/L (98-107); Glucose 97 mg/dL (74-99); Potassium 3.7 mmol/L (3.5-5.1); Sodium 144 mmol/L (137-145)
[2017-04-11] MEDS ORDERED: OLANZapine 10 MG TAB PO SCH (21:00)
[2017-04-11] MEDS ORDERED: FLUoxetine HCL 20 MG CAP PO SCH (21:00)
[2017-04-11] MEDS ORDERED: OLANZapine 5 MG TAB PO SCH (21:00)
[2017-04-11] MEDS: lamoTRIgine 100 MG TAB PO SCH (21:08)
[2017-04-11] MEDS ORDERED: Potassium Replacement Protocol 1 EACH MISC MISCELLANE PRN (21:10)
[2017-04-11] MEDS: POTASSIUM CHLORIDE 10 MEQ in WATER FOR INJECTION 1 100ML.BAG IVPB SCH ×2 (21:39→22:48)
[2017-04-11] MEDS: LORazepam 2 MG/ML INJ IV PRN (22:13)
--- NOTE | 2017-04-11 22:22 | HP ---
HISTORY AND PHYSICAL DATE OF ADMISSION: 04/11/17 CHIEF COMPLAINT: Overdose. HISTORY OF PRESENT ILLNESS: This is another recent admission for this 21-year-old, white female, who presented to the emergency room with an overdose. She has been treated recently for depression. REVIEW OF SYSTEMS: Unobtainable. Past medical history, family history, personal and social histories are unobtainable at this time and she has otherwise been healthy. PHYSICAL EXAM: Blood pressure is 106/75 with a pulse of 62, respirations of 15 and she is afebrile. In general, she appeared to be in no acute distress. She is lethargic. Skin color is normal. Skin is warm, and dry. Lymph nodes are not enlarged. Head, ears, eyes, nose, mouth, and throat were normal. Neck veins not distended. Thyroid is not enlarged. Chest is clear. Cardiac exam is normal. Abdomen is soft, nontender. EXTREMITIES: Normal. IMPRESSION: 1. Overdose. 2. Major depression. PLAN: 1. Bed rest. 2. IV fluids. 3. Supportive care. 4. Psych consult. MMODL / IJN: [id number] /
[2017-04-11] MEDS ORDERED: ACETAMINOPHEN IV (For NPO) 1,000 MG in EMPTY BAG 1 BAG IVPB PRN (22:34)
[2017-04-12] MEDS ORDERED: SODIUM CHLORIDE 0.9% 500 ML BAG ONE
[2017-04-12] MEDS ORDERED: HEPARIN SODIUM,PORCINE 5,000 UNIT/ML 1 ML VIAL ONE
[2017-04-12] MEDS ORDERED: SODIUM CHLORIDE 0.9% 1,000 ML BAG ONE
[2017-04-12] MEDS ORDERED: IPRATROPIUM-ALBUTEROL 3 ML NEB ONE
[2017-04-12] MEDS: NOREPINEPHRIN 4 MG-0.9% NS PMX 4 MG/250 ML ML IV SCH ×2 (04:30→12:09)
[2017-04-12] MEDS: SODIUM CHLORIDE 0.9% 1,000 ML IV SCH ×3 (04:40→16:00)
[2017-04-12] MEDS: HEPARIN SODIUM,PORCINE 5,000 UNIT/ML 1 ML VIAL SQ SCH ×3 (04:41→16:50)
[2017-04-12] MEDS: CLINDAMYCIN 600 MG in DEXTROSE 5% IN WATER 50 ML IVPB SCH ×6 (04:41→16:50)
[2017-04-12] MEDS: IPRATROPIUM-ALBUTEROL 3 ML NEB INHALATION SCH ×6 (04:42→23:31)
[2017-04-12 06:17] LABS: ABG Base Excess -3.8 mmol/L; ABG HCO3 22 mmol/L (21-25); ABG Oxygen Saturation 97.9 % (94-97); ABG PCO2 37 mmHg (35-45); ABG PH 7.37 (7.35-7.45); ABG PO2 113 mmHg (83-108); ABG TCO2 23 mmol/L (19-24)
[2017-04-12 06:25] LABS: Anion Gap 10 mmol/L; Blood Urea Nitrogen 8 mg/dL (7-17); Calcium 8.2 mg/dL (8.4-10.2); Carbon Dioxide 21 mmol/L (22-30); Chloride 112 mmol/L (98-107); Glucose 118 mg/dL (74-99); Magnesium 1.5 mg/dL (1.6-2.3); Potassium 3.9 mmol/L (3.5-5.1); Sodium 143 mmol/L (137-145)
[2017-04-12 06:28] LABS: Basophils % (A) 0 %; Eosinophils % (A) 0 %; HCT 33.8 % (34.0-46.0); Lymphocytes # (A) 1.2 k/uL (1.0-4.8); Lymphocytes % (A) 12 %; MCH 29.9 pg (25.0-35.0); MCHC 32.5 g/dL (31.0-37.0); Mean Platelet Volume 7.6; Monocytes # (A) 0.6 k/uL (0-1.0); Monocytes % (A) 6 %; Neutrophils # (A) 7.8 k/uL (1.3-7.7); Neutrophils % (A) 81 %; Platelet Count 200 k/uL (150-450); RBC 3.67 m/uL (3.80-5.40); RDW 12.8 % (11.5-15.5); WBC 9.7 k/uL (4.0-11.0)
[2017-04-12] MEDS ORDERED: Magnesium Replacement Protocol 1 EACH MISC MISCELLANE PRN (07:01)
[2017-04-12] MEDS: PROPOFOL 1,000 MG in EMPTY BAG 1 BAG IV SCH ×3 (07:36→20:22)
--- NOTE | 2017-04-12 07:40 | XR ---
EXAMINATION TYPE: XR chest 1V DATE OF EXAM: 04/12/2017 COMPARISON: Prior chest x-ray 04/11/2017 HISTORY: Shortness of breath TECHNIQUE: Single frontal view of the chest is obtained. FINDINGS: Endotracheal tube is overlying appropriate position, NG tube is coiled within the stomach. There is no evident pneumothorax or sizable effusion. Patient is rotated. Retrocardiac density, righ t lower lobe density is again seen. Lung volumes are low. IMPRESSION: Correlate for pneumonia. Follow-up recommended.
[2017-04-12 08:26] LABS: Glucose,Whole Blood 109 mg/dL (75-99)
[2017-04-12] MEDS: MAGNESIUM SULFATE-D5W PMX 1 GM in DEXTROSE/WATER 1 100ML.BAG IVPB SCH ×2 (08:31→09:58)
[2017-04-12] MEDS: FAMOTIDINE 20 MG/2 ML VIAL IV SCH ×2 (08:37→20:23)
[2017-04-12] MEDS: CHLORHEXIDINE GLUCONATE 15 ML CUP MUCOUS MEM SCH ×2 (08:37→20:22)
--- NOTE | 2017-04-12 09:29 | PCN ---
PROCEDURE NOTE PROCEDURE: Intubation. PREOPERATIVE DIAGNOSIS: Acute respiratory failure. POSTOPERATIVE DIAGNOSIS: Acute respiratory failure. A time-out was completed verifying correct patient, procedure, site, positioning, and implant(s) or special equipment if applicable. The patient was positioned appropriately, I used a #4 MAC blade and a #8 orotracheal tube was placed under direct laryngoscopy. The tube was anchored at 22 cm at the teeth. Correct placement was confirmed by presence of bilateral breath sounds without air sounds in the abdomen on auscultation. An end-tidal CO2 monitor was also used to confirm tracheal placement of the ET tube. A chest x-ray was ordered to assess for pneumothorax and verify endotracheal tube placement. The patient tolerated the procedure well and there were no complications. PROCEDURE: Insertion of a triple lumen catheter. PREOPERATIVE DIAGNOSIS: Acute respiratory failure/acute drug overdose. POSTOPERATIVE DIAGNOSIS: Acute respiratory failure, acute drug overdose. A time-out was completed verifying correct patient, procedure, site, positioning, and implant(s) or special equipment if applicable. The patient was placed in a dependent position appropriate for triple lumen catheter placement based on the vein to be cannulated. The patient's right groin was prepped and draped in sterile fashion. 1% Lidocaine was used to anesthetize the surrounding skin area. A triple lumen 9F Cordis catheter was introduced into the common femoral vein using Seldinger technique. The catheter was threaded smoothly over the guide wire and appropriate blood return was obtained. Each lumen of the catheter was evacuated of air and flushed with sterile saline. The catheter was then sutured in place to the skin and a sterile dressing applied. Perfusion to the extremity distal to the point of catheter insertion was checked and found to be adequate. No bedside complications or bleeding. MMODL / IJN: [id number] /
--- NOTE | 2017-04-12 09:34 | CT ---
EXAMINATION TYPE: CT brain wo con DATE OF EXAM: 04/12/2017 COMPARISON: NONE HISTORY: History of seizures with new seizure. Drug overdose. Unresponsive. CT DLP: 1017.9 mGycm. Automated Exposure Control for Dose Reduction was Utilized. TECHNIQUE: CT scan of the head is performed without contrast. FINDINGS: There is no acute intracranial hemorrhage, mass effect, or midline shift identified. The ventricles and sulci are within normal limits in size. The globes are intact bilaterally. Rubi-whit e matter differentiation is maintained. There is mild to moderate mucosal thickening involving anteri or ethmoid sinuses bilaterally. There is suspected tiny air-fluid level in left maxillary sinus versu s eccentric mucosal thickening. Soft tissue density bilateral external auditory canals is felt to ref lect cerumen. Nasogastric tube and endotracheal tubes noted on localizer image. IMPRESSION: No acute intracranial hemorrhage, mass effect, or midline shift is seen. Incidental para nasal sinus disease as detailed above.
[2017-04-12 12:10] LABS: Glucose,Whole Blood 95 mg/dL (75-99)
[2017-04-12] MEDS: LORazepam 2 MG/ML INJ IV PRN ×2 (12:11→21:33)
[2017-04-12] MEDS: INSULIN ASPART 100 UNIT/ML 1 ML 10 ML VIAL SQ SCH ×2 (13:38→17:16)
[2017-04-12] MEDS: LEVOFLOXACIN 750MG-D5W PMX 750 MG in DEXTROSE/WATER 1 150ML.BAG IVPB SCH (13:38)
--- NOTE | 2017-04-12 15:35 | EEG ---
ELECTROENCEPHALOGRAM REPORT DATE OF SERVICE: 04/12/2017 REASON FOR TESTING: Altered mental status, overdose, suicide attempt. DESCRIPTION OF THE PROCEDURE: This EEG was performed using a 21 channel digital electroencephalograph, following international 10-20 system. DESCRIPTION OF THE RECORDING: From the beginning of the tracing, and with patient's eyes closed, the background rhythm was mostly consisting of 8 Hz alpha frequency in the posterior occipital leads. Occasional slowing into the theta range is seen. Lead artifacts are noticed. Photic stimulation was performed with no driving response seen. No pathological waves were elicited. Hyperventilation was not performed. No epileptiform discharges were seen. Her EKG lead showed a regular rate and rhythm. INTERPRETATION: This EEG is abnormal due to the presence of generalized slowing of the background rhythm, occasionally into the theta range. This is consistent with mild encephalopathy. No epileptiform discharges were seen. The absence of epileptiform discharges does not rule out the diagnosis of epilepsy, therefore clinical correlation is recommended. MMOCTAVIO / CAROLINE: [id number] /
[2017-04-12 16:55] LABS: Glucose,Whole Blood 89 mg/dL (75-99)
--- NOTE | 2017-04-12 17:35 | P.PN ---
Subjective Progress Note Date: 04/12/17 This is a 21-year-old female patient with a known history of chronic major recurrent depression. She is also a cutter. She has had approximately 10 suicide attempts in the past. She was most recently hospitalized here in December 2016. She and her parents had recently moved to the [facility] back in July 2016. Prior to that she had been treated by psychiatrists and both [place] and [place]. She was brought in here to the emergency room approximate 4:30 this morning after calling her parents from her bedroom stating that she took multiple pills in an attempt to harm her self. There is also some self-inflicted lacerations of the left wrist. She is seen in consultation in the emergency room. She is still somewhat obtunded. She is able to protect her airways currently. Maintain O2 saturations in the high 90s on 2 L/m per nasal cannula. She slightly tachycardic sinus. Her EKG is reviewed. No prolongation of the QT interval noted. She's been hemodynamically stable. Her CBC and electrolyte profile are within normal limits. Creatinine 0.79. Urine hCG was negative., Alcohol level was less than 10. Urine drug screen is positive for tricyclic antidepressants and benzodiazepines., The patient remains quite obtunded and the patient became progressively more short of breath and hypoxic and at one point she became briefly hypotensive. There was concern that the patient was not maintaining the patency of her airway and she would not be able to protect her airways. She had a week cough and a gag. She also had history of bronchial asthma and a chest x-ray was done upon my arrival showed a limited infiltration of the lung bases suspecting an underlying aspiration pneumonia. Early ARDS cannot be completely excluded as the patient was becoming progressively more hypoxic and short of breath. At that point I decided to intubate this patient and placed on mechanical ventilator. Post intubation chest x-ray showed some limited infiltration of the lung bases and there was improved aeration in lung bases and these findings could've been possibly atelectatic. I cover this patient with a combination of Levaquin and clindamycin for aspiration pneumonia. Put the patient on Diprivan for sedation. IV fluids. No pressors yet. The triple- lumen catheter was inserted. The patient got moved to the intensive care unit. The family was updated on her condition. We'll continue to follow. Condition is critical at this point. Lactic acid was obtained and was at 2.5. Blood gases was also noted. On 04/12/2017 the patient is being seen for a follow-up. As mentioned earlier the patient initially presented with acute suicidal attempt secondary to drug overdose. Subsequently the patient went into respiratory failure and she had to be intubated and placed on mechanical ventilator. There was a concern that the patient could have also aspirated. In any rate, the patient was intubated and she was transferred to the ICU. Overnight, the patient developed some jerky body movements involving the lower extremities and torso. Seizure activity was suspected knowing that based on the information given from the family the patient had seizure activity with previous drug withdrawal/toxicity. The acute jerky body movements/seizure activity was treated with Ativan. The patient was given 2 g IV Ativan which controlled the seizure activity and the propofol dose was increased up to 40 g per KG per minute. This morning, an EEG was done. Of the brain was also done this morning that showed no acute abnormalities. Awaiting a neurology consultation. At the time of my evaluation this morning, the patient was resting comfortably in bed. She was assist-control mode of ventilation. FiO2 is down to 35% with a tidal volume of 400 and a PEEP of 5. The patient's blood gas showed a pH of 7.37 with a pCO2 of 37 and pO2 113 and the chest x-ray showed possible right lower lobe and retrocardiac pulmonary infiltrates/pneumonia which could be potentially related to aspiration and there was any decubitus was in a good location. Note that overnight, the patient was dropping her urine output. She got resuscitated IV fluids. She was given several boluses and she was also supported with pressors and currently she is on few mics of norepinephrine infusion to support her blood pressure. She remains on examination of Levaquin and clindamycin. Blood cultures of been sent. Sputum culture has been sent pH is afebrile. Morning white cell count is at 9.7. Hemoglobin stable at 11.0. No significant metabolic acidosis. The bicarb level is at 21. Rest of the electrolytes are all within normal limits. Objective - Vital Signs Vital signs: Vital Signs Temp 98.4 F 04/12/17 12:00 Pulse 118 H 04/12/17 16:23 Resp 20 04/12/17 14:00 BP 91/46 04/12/17 14:00 Pulse Ox 98 04/12/17 14:00 Intake & Output 04/11/17 04/12/17 04/12/17 18:59 06:59 18:59 Intake Total 2250 3153.125 1614.824 Output Total 1246 2340 1730 Balance 1004 813.125 -115.176 Weight 100.2 kg 101.8 kg Intake: IV 2250 3125 875 Sodium Chloride 0.9% 1, 2250 1625 875 000 ml @ 125 mls/hr IV . Q8H [facility] Rx#:[id number] Sodium Chloride 0.9% 1, 1000 000 ml @ 999 mls/hr IV . Q1H1M [facility] Rx#:[id number] Sodium Chloride 0.9% 500 500 ml @ 999 mls/hr IV .Q31M [facility] Rx#:[id number] Intake, IV Titration 28.125 709.824 Amount Clindamycin 600 mg In 50 Dextrose 5% in Water 50 ml @ 100 mls/hr IVPB Q8HR [facility] Rx#:[id number] Levofloxacin 750Mg-D5w 150 Pmx 750 mg In Dextrose/ Water 1 150ml.bag @ 100 mls/hr IVPB Q24H [facility] Rx#: [id number] Magnesium Sulfate-D5w Pmx 200 1 gm In Dextrose/Water 1 100ml.bag @ 100 mls/hr IVPB Q1H [facility] Rx#: [id number] Norepinephrin 4 mg-0.9% 28.125 134.563 Ns Pmx 4 mg In 250 ml @ Titrate IV .Q0M [facility] Rx#: [id number] Propofol 1,000 mg In 175.261 Empty Bag 1 bag @ Titrate IV .Q0M [facility] Rx#: [id number] Tube Feeding 30 Output: Urine 1246 2340 1730 Other: Voiding Method Indwelling Catheter Indwelling Catheter Indwelling Catheter - Exam Patient is well sedated on Diprivan and she is calm and comfortable likely distress.Head exam was generally normal. There was no scleral icterus or corneal arcus. Mucous membranes were moist.Neck was supple and without jugular venous distension, thyromegaly, or carotid bruits. Carotids were easily palpable bilaterally. There was no adenopathy. Orotracheal and orogastric tube are both in place.Lungs were clear to auscultation and percussion, and with normal diaphragmatic excursion. No wheezes or rales were noted. Cardiac exam revealed the PMI to be normally situated and sized. The rhythm was regular and no extrasystoles were noted during several minutes of auscultation. The first and second heart sounds were normal and physiologic splitting of the second heart sound was noted. There were no murmurs, rubs, clicks, or gallops.Abdominal exam revealed normal bowel sounds. The abdomen was soft, non- tender, and without masses, organomegaly, or appreciable enlargement of the abdominal aorta.Examination of the extremities revealed easily palpable radial, femoral and pedal pulses. There was no cyanosis, clubbing or edema.Examination of the skin revealed no evidence of significant rashes, suspicious appearing nevi or other concerning lesions. Neurologically the patient withdraws only to deep painful stimuli. No clonus. No Babinski. Pupils are equal and reactive to light. No facial asymmetry. No seizure activity has been noted. - Labs CBC & Chem 7: 04/12/17 05:40 04/12/17 05:40 Labs: Abnormal Lab Results - Last 24 Hours (Table) 04/11/17 04/12/17 04/12/17 Range/Units 20:16 05:40 05:40 RBC 3.67 L (3.80-5.40) m/uL Hgb 11.0 L (11.4-16.0) gm/dL Hct 33.8 L (34.0-46.0) % Neutrophils # 7.8 H (1.3-7.7) k/uL ABG pO2 (83-108) mmHg ABG O2 Saturation (94-97) % Chloride 112 H 112 H (98-107) mmol/L Carbon Dioxide 21 L 21 L (22-30) mmol/L Glucose 118 H (74-99) mg/dL POC Glucose (mg/dL) (75-99) mg/dL Calcium 8.2 L (8.4-10.2) mg/dL Magnesium 1.5 L (1.6-2.3) mg/dL 04/12/17 04/12/17 Range/Units 06:12 08:24 RBC (3.80-5.40) m/uL Hgb (11.4-16.0) gm/dL Hct (34.0-46.0) % Neutrophils # (1.3-7.7) k/uL ABG pO2 113 H (83-108) mmHg ABG O2 Saturation 97.9 H (94-97) % Chloride (98-107) mmol/L Carbon Dioxide (22-30) mmol/L Glucose (74-99) mg/dL POC Glucose (mg/dL) 109 H (75-99) mg/dL Calcium (8.4-10.2) mg/dL Magnesium (1.6-2.3) mg/dL Microbiology - Last 24 Hours (Table) 04/11/17 14:00 Gram Stain - Preliminary Sputum Sputum Culture - Preliminary Assessment and Plan Assessment: Assessment 1 acute drug overdose, with a combination of Prozac and Zyprexa and Lamictal. 2 diminished level of consciousness/altered consciousness secondary to drug overdose 3 acute respiratory failure with suspected bilateral aspiration pneumonia secondary to above. Currently the patient intubated on mechanical ventilator 4 chronic depression with multiple suicidal attempts in the past 5 seizure activity, suspected and the patient is currently on a combination of the prevent and Ativan as needed. Neurology consultation is pending 6 bronchial asthma 7 hypotension possibly secondary to combination of hypovolemia and Diprivan and the patient is on fluids and low-dose pressors at this point Plan Awaiting results of the EEG. Awaiting neurology consultation. Keep the patient on Diprivan for now. May possibly need an additional antiepileptic medication and I'll leave the final decision up to neurology. Clinically she is not having any seizures and I'm awaiting for the results of the EEG for now. Diprivan should be enough in controlling seizures for now. Meanwhile, continue vent support and continue the current antibiotic coverage. Start the patient on enteral feeding for nutritional support. Wean off pressors and this continued to maintain a mean artery pressure above 65. Monitor fever pattern. Obtain cultures. We'll continue to follow make further recommendations based on her progress. If no seizure activity is noted was started giving this patient has sedation holiday as of tomorrow. Zyprexa and Prozac will be kept on hold. We'll continue to follow. Family was updated on her condition. Her condition remains critical. This evaluation was done and more than 30 minutes. Time with Patient: Greater than 30
[2017-04-12 18:15] LABS: Hemoglobin A1C 5.2 % (4.0-6.0)
--- NOTE | 2017-04-12 20:11 | PN ---
PROGRESS NOTE CHIEF COMPLAINT: Overdose with respiratory suppression. HISTORY OF PRESENT ILLNESS: This lady has been intubated and remains very lethargic. She is going down for CT of the brain. PHYSICAL EXAMINATION: Breath sounds are heard on both sides. Cardiac exam is normal. The abdomen is soft. IMPRESSION: 1. Drug ingestion overdose. 2. Respiratory failure. 3. Major depression. PLAN: Continue to follow with Pulmonology. MMODL / IJN: [id number] /
[2017-04-12] MEDS: lamoTRIgine 100 MG TAB PO SCH (20:22)
[2017-04-13] MEDS: CLINDAMYCIN 600 MG in DEXTROSE 5% IN WATER 50 ML IVPB SCH ×6 (00:35→18:44)
[2017-04-13 00:57] LABS: Glucose,Whole Blood 92 mg/dL (75-99)
[2017-04-13] MEDS: INSULIN ASPART 100 UNIT/ML 1 ML 10 ML VIAL SQ SCH ×4 (01:09→19:50)
[2017-04-13] MEDS: SODIUM CHLORIDE 0.9% 1,000 ML IV SCH ×4 (01:11→19:49)
[2017-04-13] MEDS: HEPARIN SODIUM,PORCINE 5,000 UNIT/ML 1 ML VIAL SQ SCH ×3 (01:12→19:50)
[2017-04-13] MEDS: IPRATROPIUM-ALBUTEROL 3 ML NEB INHALATION SCH ×5 (03:06→20:47)
[2017-04-13] MEDS: PROPOFOL 1,000 MG in EMPTY BAG 1 BAG IV SCH (04:50)
[2017-04-13 05:09] LABS: Glucose,Whole Blood 90 mg/dL (75-99)
[2017-04-13 05:11] LABS: ABG Base Excess -0.7 mmol/L; ABG HCO3 24 mmol/L (21-25); ABG Oxygen Saturation 94.9 % (94-97); ABG PCO2 37 mmHg (35-45); ABG PH 7.41 (7.35-7.45); ABG PO2 70 mmHg (83-108); ABG TCO2 25 mmol/L (19-24)
[2017-04-13 05:31] LABS: Basophils % (A) 0 %; Eosinophils % (A) 0 %; HCT 34.2 % (34.0-46.0); Lymphocytes # (A) 1.4 k/uL (1.0-4.8); Lymphocytes % (A) 17 %; MCH 29.5 pg (25.0-35.0); MCHC 32.1 g/dL (31.0-37.0); MCV 91.8 fL (80.0-100.0); Mean Platelet Volume 6.8; Monocytes # (A) 0.6 k/uL (0-1.0); Monocytes % (A) 7 %; Neutrophils # (A) 6.1 k/uL (1.3-7.7); Neutrophils % (A) 74 %; Platelet Count 218 k/uL (150-450); RBC 3.73 m/uL (3.80-5.40); RDW 12.9 % (11.5-15.5); WBC 8.3 k/uL (4.0-11.0)
[2017-04-13 05:45] LABS: ALT 33 U/L (9-52); AST 16 U/L (14-36); Albumin 3.4 g/dL (3.5-5.0); Alkaline Phosphatase 87 U/L (38-126); Anion Gap 10 mmol/L; Blood Urea Nitrogen 5 mg/dL (7-17); Calcium 9.2 mg/dL (8.4-10.2); Carbon Dioxide 24 mmol/L (22-30); Chloride 110 mmol/L (98-107); Glucose 93 mg/dL (74-99); Magnesium 1.9 mg/dL (1.6-2.3); Phosphorus 3.8 mg/dL (2.5-4.5); Sodium 144 mmol/L (137-145); Total Bilirubin 0.3 mg/dL (0.2-1.3); Total Protein 5.9 g/dL (6.3-8.2)
[2017-04-13 06:31] LABS: Potassium 3.9 mmol/L (3.5-5.1)
--- NOTE | 2017-04-13 06:42 | CONS ---
CONSULTATION DATE OF CONSULTATION: 04/12/2017. CHIEF COMPLAINT: Medication overdose, suicide attempt. HISTORY OF PRESENT ILLNESS: The patient is a 21-year-old, female, who is being evaluated by the neurology service per the request of Dr. Thakkar for medication overdose. The patient has history of multiple psychiatric disorders and has history of multiple suicide attempts both with medication overdose and wrist cutting. According to nursing staff, this is her tenth suicide attempts. The patient was brought into [facility] Emergency Room by her family after she informed them that she overdosed on her medications with the intent to commit suicide. The patient had taken 20 tablets of Lamictal 200 mg, 20 tablets of Zyprexa 20 mg, and 20 tablets of Prozac 60 mg according to the nursing staff. In the emergency room, she was initially awake although drowsy. She had become more drowsy and more combative and she was sedated and intubated. At the time of my evaluation, she continues to be in the intensive care unit on mechanical ventilation. Pulmonology is following. A CT scan of the brain was done, which showed no acute intracranial abnormalities. I did review her EEG performed today which showed mild encephalopathy. Her urine drug screen was positive for benzodiazepine and tricyclic antidepressants. Her CBC showed no leukocytosis but she did have anemia with a hemoglobin of 11 and hematocrit of 38%. No seizure-like activity has been reported with any generalized tonic colonic activity, but according to nursing staff, she had an episode where she postured for a few seconds. The patient has no history of seizure disorder and had been on Lamictal for mood stabilization. Psychiatry has been consulted. PAST MEDICAL HISTORY: Depression with multiple suicide attempts in the past as mentioned above. She has history of anxiety disorder, bipolar disorder, schizoaffective disorder. SOCIAL HISTORY: The patient is a current every day smoker. She occasionally drinks alcohol. There is no history of any IV drug use. FAMILY HISTORY: Noncontributory. HOME MEDICATIONS: Reviewed in the chart. ALLERGIES: AMOXICILLIN. REVIEW OF SYSTEMS: Unable to obtain, as the patient is sedated and intubated. PHYSICAL EXAM: Vital signs show a temperature of 98.5, pulse 89, respiration 20, blood pressure 110/60. GENERAL APPEARANCE: The patient is a well-developed female, who is intubated and sedated. HEENT: Normocephalic, atraumatic, no obvious facial asymmetry is seen, endotracheal tube is intact. NECK: Supple with no masses felt. CARDIOVASCULAR: Regular rate and rhythm. ABDOMEN: Nondistended. EXTREMITIES: Showed no edema or clubbing. NEUROLOGICAL: Exam the patient is sedated. She does not respond to any verbal stimuli. She does withdrawal all 4 extremities to painful stimuli. Brainstem reflexes are intact. Plantar reflex showed down-going toes bilaterally. No facial asymmetry is seen on cranial nerve testing. No tremors or seizure-like activity is seen. IMPRESSION: 1. Acute toxic encephalopathy. 2. Suicide attempt. 3. Multiple medication overdose. 4. Psychiatric disorders. 5. Anemia. RECOMMENDATION: At this time, the patient continues to be sedated and intubated. A full neurological examination could not be performed. Her brainstem reflexes are intact. Her EEG showed evidence of mild encephalopathy, likely toxic in etiology. Continue supportive care. A full neurological evaluation will be done once the patient is weaned off of sedation and mechanical ventilation. Pulmonology is following and they will attempt to wean the patient tomorrow. Psychiatry has been consulted as well. I did review her CT scan of the brain which showed no acute findings. Continue the rest of your current workup and management. I will continue to follow with you. Further recommendations to follow. Thank you, Dr. Thakkar for allowing me to participate in the care of your patient. If you have any questions, please feel free to contact me. CHUCK / CAROLINE: [id number] /
[2017-04-13] MEDS ORDERED: POTASSIUM CHLORIDE ORAL LIQUID 40 MEQ/30 ML CUP NG-TUBE SCH (08:00)
[2017-04-13] MEDS: CHLORHEXIDINE GLUCONATE 15 ML CUP MUCOUS MEM SCH (08:50)
[2017-04-13] MEDS: MAGNESIUM SULFATE-D5W PMX 1 GM in DEXTROSE/WATER 1 100ML.BAG IVPB SCH ×2 (08:50→10:19)
[2017-04-13] MEDS: FAMOTIDINE 20 MG/2 ML VIAL IV SCH ×2 (08:51→20:00)
--- NOTE | 2017-04-13 10:26 | XR ---
EXAMINATION TYPE: XR chest 1V DATE OF EXAM: 04/13/2017 COMPARISON: Prior chest x-ray 04/12/2017 HISTORY: Shortness of breath TECHNIQUE: Single frontal view of the chest is obtained. FINDINGS: Endotracheal tube and NG tube are overlying appropriate positions. There is no pneumothora x or pleural effusion evident. Retrocardiac density is present with air bronchograms. Lung volumes ar e low, patient is rotated. Heart size is stable. IMPRESSION: Left lower lobe pneumonia greater than right. Rotated expiratory exam, follow-up.
[2017-04-13 11:43] LABS: Glucose,Whole Blood 91 mg/dL (75-99)
[2017-04-13] MEDS: LEVOFLOXACIN 750MG-D5W PMX 750 MG in DEXTROSE/WATER 1 150ML.BAG IVPB SCH (12:01)
[2017-04-13 13:55] LABS: ABG Base Excess -0.9 mmol/L; ABG HCO3 24 mmol/L (21-25); ABG Oxygen Saturation 97.1 % (94-97); ABG PCO2 40 mmHg (35-45); ABG PH 7.39 (7.35-7.45); ABG PO2 90 mmHg (83-108); ABG TCO2 25 mmol/L (19-24)
--- NOTE | 2017-04-13 14:47 | P.PN ---
Subjective Progress Note Date: 04/13/17 This is a 21-year-old female patient with a known history of chronic major recurrent depression. She is also a cutter. She has had approximately 10 suicide attempts in the past. She was most recently hospitalized here in December 2016. She and her parents had recently moved to the [facility] back in July 2016. Prior to that she had been treated by psychiatrists and both [place] and [place]. She was brought in here to the emergency room approximate 4:30 this morning after calling her parents from her bedroom stating that she took multiple pills in an attempt to harm her self. There is also some self-inflicted lacerations of the left wrist. She is seen in consultation in the emergency room. She is still somewhat obtunded. She is able to protect her airways currently. Maintain O2 saturations in the high 90s on 2 L/m per nasal cannula. She slightly tachycardic sinus. Her EKG is reviewed. No prolongation of the QT interval noted. She's been hemodynamically stable. Her CBC and electrolyte profile are within normal limits. Creatinine 0.79. Urine hCG was negative., Alcohol level was less than 10. Urine drug screen is positive for tricyclic antidepressants and benzodiazepines., The patient remains quite obtunded and the patient became progressively more short of breath and hypoxic and at one point she became briefly hypotensive. There was concern that the patient was not maintaining the patency of her airway and she would not be able to protect her airways. She had a week cough and a gag. She also had history of bronchial asthma and a chest x-ray was done upon my arrival showed a limited infiltration of the lung bases suspecting an underlying aspiration pneumonia. Early ARDS cannot be completely excluded as the patient was becoming progressively more hypoxic and short of breath. At that point I decided to intubate this patient and placed on mechanical ventilator. Post intubation chest x-ray showed some limited infiltration of the lung bases and there was improved aeration in lung bases and these findings could've been possibly atelectatic. I cover this patient with a combination of Levaquin and clindamycin for aspiration pneumonia. Put the patient on Diprivan for sedation. IV fluids. No pressors yet. The triple- lumen catheter was inserted. The patient got moved to the intensive care unit. The family was updated on her condition. We'll continue to follow. Condition is critical at this point. Lactic acid was obtained and was at 2.5. Blood gases was also noted. On 04/12/2017 the patient is being seen for a follow-up. As mentioned earlier the patient initially presented with acute suicidal attempt secondary to drug overdose. Subsequently the patient went into respiratory failure and she had to be intubated and placed on mechanical ventilator. There was a concern that the patient could have also aspirated. In any rate, the patient was intubated and she was transferred to the ICU. Overnight, the patient developed some jerky body movements involving the lower extremities and torso. Seizure activity was suspected knowing that based on the information given from the family the patient had seizure activity with previous drug withdrawal/toxicity. The acute jerky body movements/seizure activity was treated with Ativan. The patient was given 2 g IV Ativan which controlled the seizure activity and the propofol dose was increased up to 40 g per KG per minute. This morning, an EEG was done. Of the brain was also done this morning that showed no acute abnormalities. Awaiting a neurology consultation. At the time of my evaluation this morning, the patient was resting comfortably in bed. She was assist-control mode of ventilation. FiO2 is down to 35% with a tidal volume of 400 and a PEEP of 5. The patient's blood gas showed a pH of 7.37 with a pCO2 of 37 and pO2 113 and the chest x-ray showed possible right lower lobe and retrocardiac pulmonary infiltrates/pneumonia which could be potentially related to aspiration and there was any decubitus was in a good location. Note that overnight, the patient was dropping her urine output. She got resuscitated IV fluids. She was given several boluses and she was also supported with pressors and currently she is on few mics of norepinephrine infusion to support her blood pressure. She remains on examination of Levaquin and clindamycin. Blood cultures of been sent. Sputum culture has been sent pH is afebrile. Morning white cell count is at 9.7. Hemoglobin stable at 11.0. No significant metabolic acidosis. The bicarb level is at 21. Rest of the electrolytes are all within normal limits. On 04/13/2017, I'm seeing this patient for a follow-up. The patient is still on Diprivan this morning. No seizure activity has been noted. EEG came back negative. Neurological station was completed and there is no concern for any ongoing seizure this point. Based on all this, the patient will be given a sedation holiday. The patient was taken off Diprivan and the patient was found to be waking up gradually and following some simple commands. Weaning parameters were obtained and the patient was given a spontaneous breathing trial utilizing a pressure support of 5 and a PEEP of 5. Blood gases after 30 minutes showed a pH of 7.39 with a pCO2 of 40 and pO2 of 90. Based on that the patient was extubated to nasal cannula. Chest x-ray showed no acute abnormalities are than some limited left basilar infiltration and some limited right basilar infiltration consistent with aspiration. No bronchospasm. No wheezing. No agitation. Levo fed was weaned off and currently the patient is on few mics of norepinephrine infusion for blood pressure support. Objective - Vital Signs Vital signs: Vital Signs Temp 99.6 F 04/13/17 12:00 Pulse 117 H 04/13/17 14:00 Resp 17 04/13/17 14:00 BP 129/72 04/13/17 14:00 Pulse Ox 97 04/13/17 14:00 Intake & Output 04/12/17 04/13/17 04/13/17 18:59 06:59 18:59 Intake Total 2356.751 2067.56 1599.003 Output Total 2430 1675 1820 Balance -73.249 392.56 -220.997 Weight 101.8 kg 101.8 kg Intake: IV 1375 1500 975 Sodium Chloride 0.9% 1, 1375 1500 975 000 ml @ 125 mls/hr IV . Q8H [facility] Rx#:[id number] Intake, IV Titration 881.751 157.56 474.003 Amount Clindamycin 600 mg In 100 50 Dextrose 5% in Water 50 ml @ 100 mls/hr IVPB Q8HR [facility] Rx#:[id number] Levofloxacin 750Mg-D5w 150 150 Pmx 750 mg In Dextrose/ Water 1 150ml.bag @ 100 mls/hr IVPB Q24H [facility] Rx#: [id number] Magnesium Sulfate-D5w Pmx 200 1 gm In Dextrose/Water 1 100ml.bag @ 100 mls/hr IVPB Q1H [facility] Rx#: [id number] Magnesium Sulfate-D5w Pmx 200 1 gm In Dextrose/Water 1 100ml.bag @ 100 mls/hr IVPB Q1H [facility] Rx#: [id number] Norepinephrin 4 mg-0.9% 199.063 29.5 Ns Pmx 4 mg In 250 ml @ Titrate IV .Q0M [facility] Rx#: [id number] Propofol 1,000 mg In 232.688 128.06 74.003 Empty Bag 1 bag @ Titrate IV .Q0M [facility] Rx#: [id number] Tube Feeding 70 320 120 Other 30 90 30 Output: Urine 2430 1675 1820 Other: Voiding Method Indwelling Catheter Indwelling Catheter Indwelling Catheter - Exam Patient is extubated to nasal cannula. Orotracheal and orogastric tube are both removed. There was no scleral icterus or corneal arcus. Mucous membranes were moist.Neck was supple and without jugular venous distension, thyromegaly, or carotid bruits. Carotids were easily palpable bilaterally. There was no adenopathy. .Lungs were clear to auscultation and percussion, and with normal diaphragmatic excursion. No wheezes or rales were noted. Cardiac exam revealed the PMI to be normally situated and sized. The rhythm was regular and no extrasystoles were noted during several minutes of auscultation. The first and second heart sounds were normal and physiologic splitting of the second heart sound was noted. There were no murmurs, rubs, clicks, or gallops.Abdominal exam revealed normal bowel sounds. The abdomen was soft, non-tender, and without masses, organomegaly, or appreciable enlargement of the abdominal aorta.Examination of the extremities revealed easily palpable radial, femoral and pedal pulses. There was no cyanosis, clubbing or edema.Examination of the skin revealed no evidence of significant rashes, suspicious appearing nevi or other concerning lesions. Neurologically the patient is awake and alert. No clonus. No Babinski. Pupils are equal and reactive to light. No facial asymmetry. No seizure activity has been noted. - Labs CBC & Chem 7: 04/13/17 04:50 04/13/17 04:50 Labs: Abnormal Lab Results - Last 24 Hours (Table) 04/13/17 04/13/17 04/13/17 Range/Units 04:50 04:50 05:02 RBC 3.73 L (3.80-5.40) m/uL Hgb 11.0 L (11.4-16.0) gm/dL ABG pO2 70 L (83-108) mmHg ABG Total CO2 25 H (19-24) mmol/L ABG O2 Saturation (94-97) % Chloride 110 H (98-107) mmol/L BUN 5 L (7-17) mg/dL Total Protein 5.9 L (6.3-8.2) g/dL Albumin 3.4 L (3.5-5.0) g/dL 04/13/17 Range/Units 13:52 RBC (3.80-5.40) m/uL Hgb (11.4-16.0) gm/dL ABG pO2 (83-108) mmHg ABG Total CO2 25 H (19-24) mmol/L ABG O2 Saturation 97.1 H (94-97) % Chloride (98-107) mmol/L BUN (7-17) mg/dL Total Protein (6.3-8.2) g/dL Albumin (3.5-5.0) g/dL Microbiology - Last 24 Hours (Table) 04/11/17 14:00 Gram Stain - Final Sputum Sputum Culture - Final Assessment and Plan Assessment: Assessment 1 acute drug overdose, with a combination of Prozac and Zyprexa and Lamictal. The patient has significant limitation in level of consciousness and diminished mentation for which the patient had to be intubated for the past 24-48 hours. Subsequently the drug effect has recovered and the patient got weaned off the mechanical ventilator. She was given sedation holiday and she was able to passively without any major difficulties and the patient was extubated. 2 diminished level of consciousness/altered consciousness secondary to drug overdose, secondary to above 3 acute respiratory failure with suspected bilateral aspiration pneumonia secondary to above. Currently the patient is extubated and the patient is on nasal cannula. Limited infiltration of the lung bases raises the concern for aspiration pneumonia. 4 chronic depression with multiple suicidal attempts in the past 5 seizure activity, suspected and the patient is on no epileptic medication and please refer to the neurologist input regarding this possibility of seizures. 6 bronchial asthma 7 hypotension possibly secondary to combination of hypovolemia and Diprivan and the patient is on fluids and low-dose pressors at this point Plan The patient is extubated. The patient will monitored neurologically. Neuro checks on an hourly basis. Seizure precautions. Aspiration precautions. Continue Levaquin and clindamycin. Neurology's input on the case is appreciated. Patient is obviously depressed and suicidal and the patient will need a psychiatric evaluation a 24-hour bedside sitter at all times. We'll continue to follow. Family was updated on her condition. Mother at the bedside. This information was done in 35 minutes. Time with Patient: Greater than 30
[2017-04-13] MEDS: LORazepam 2 MG/ML INJ IV PRN ×2 (15:45→15:58)
--- NOTE | 2017-04-13 17:22 | P.PN ---
Subjective Progress Note Date: 04/13/17 Principal diagnosis: Medication overdose, suicide attempt, previous prior attempts Patient is a 21-year-old female is being followed by neurology for history of suicide attempt. Patient noted to have multiple psychiatric disorders and a history of multiple suicide attempts both of medication overdose and cutting. Staff reports that this is potentially her 10th attempt. She was brought to the ED by family after she informed that she overdosed on numerous medications including 20 tablets of Lamictal 200 mg, 20 tablets of Zyprexa 20 mg in 20 tablets of Prozac 60 mg in the ED the patient was initially drowsy but awake. She had become more drowsy and combative while in the ED and was sedated and intubated. At time of my contact with the patient, she was resting in the ICU and had just recently been extubated. Patient was agitated and supervising physician had already provided an order for Ativan. Provider stood by while nursing staff administered Ativan. Patient did calm down and was reactive with provider. EEG was noted to have mild encephalopathy. Urine drug screen history is positive for benzodiazepines and tricyclic antidepressants. CBC showed no leukocytosis but did have anemia with hemoglobin and hematocrit of 11 and 38% respectively. No seizure activity had been noted or reported. There is conflicting reports of possible occurrence of posturing for several seconds. Patient has no history of seizure disorder and had been on Lamictal for mood stabilization. Psychiatry is also consult on the patient. Objective - Vital Signs Vital signs: Vital Signs Temp 99.6 F 04/13/17 12:00 Pulse 117 H 04/13/17 14:00 Resp 17 04/13/17 14:00 BP 129/72 04/13/17 14:00 Pulse Ox 97 04/13/17 14:00 Intake & Output 04/12/17 04/13/17 04/13/17 18:59 06:59 18:59 Intake Total 2356.751 2067.56 1599.003 Output Total 2430 1675 1820 Balance -73.249 392.56 -220.997 Weight 101.8 kg 101.8 kg Intake: IV 1375 1500 975 Sodium Chloride 0.9% 1, 1375 1500 975 000 ml @ 125 mls/hr IV . Q8H [facility] Rx#:[id number] Intake, IV Titration 881.751 157.56 474.003 Amount Clindamycin 600 mg In 100 50 Dextrose 5% in Water 50 ml @ 100 mls/hr IVPB Q8HR [facility] Rx#:[id number] Levofloxacin 750Mg-D5w 150 150 Pmx 750 mg In Dextrose/ Water 1 150ml.bag @ 100 mls/hr IVPB Q24H [facility] Rx#: [id number] Magnesium Sulfate-D5w Pmx 200 1 gm In Dextrose/Water 1 100ml.bag @ 100 mls/hr IVPB Q1H [facility] Rx#: [id number] Magnesium Sulfate-D5w Pmx 200 1 gm In Dextrose/Water 1 100ml.bag @ 100 mls/hr IVPB Q1H [facility] Rx#: [id number] Norepinephrin 4 mg-0.9% 199.063 29.5 Ns Pmx 4 mg In 250 ml @ Titrate IV .Q0M [facility] Rx#: [id number] Propofol 1,000 mg In 232.688 128.06 74.003 Empty Bag 1 bag @ Titrate IV .Q0M [facility] Rx#: [id number] Tube Feeding 70 320 120 Other 30 90 30 Output: Urine 2430 1675 1820 Other: Voiding Method Indwelling Catheter Indwelling Catheter Indwelling Catheter - Exam Gen. appearance: Alert, in no apparent distress Head: Atraumatic normocephalic, normal inspection Eyes: PERRL, EOMI. absent: Scleral icterus, conjunctival injection, nystagmus, periorbital swelling. Ear nose and throat: Normal exam, mucous membranes moist, recently extubated Neck: Normal inspection. Absent tenderness, lymphadenopathy Respiratory: No increased work of breathing. Cardiovascular: Regular rate, normal rhythm, normal heart sounds. Absent systolic murmur, diastolic murmur, rubs, gallops, clicks GIabdominal: Normal bowel sounds, non distended, no tenderness, no guarding, no rebound, no rigidity. Extremities: All range of motion, normal capillary refill, no tenderness, pedal edema, joint swelling, calf tenderness Neurological: Alert, no unilateral lateralizing weakness, no seizure activity noted on physical exam, no pronator drift and no nystagmus. cranial nerves II through XII appear grossly intact. Psychological: Mild agitation but cooperative - Labs CBC & Chem 7: 04/13/17 04:50 04/13/17 04:50 Labs: Abnormal Lab Results - Last 24 Hours (Table) 04/13/17 04/13/17 04/13/17 Range/Units 04:50 04:50 05:02 RBC 3.73 L (3.80-5.40) m/uL Hgb 11.0 L (11.4-16.0) gm/dL ABG pO2 70 L (83-108) mmHg ABG Total CO2 25 H (19-24) mmol/L ABG O2 Saturation (94-97) % Chloride 110 H (98-107) mmol/L BUN 5 L (7-17) mg/dL Total Protein 5.9 L (6.3-8.2) g/dL Albumin 3.4 L (3.5-5.0) g/dL 04/13/17 Range/Units 13:52 RBC (3.80-5.40) m/uL Hgb (11.4-16.0) gm/dL ABG pO2 (83-108) mmHg ABG Total CO2 25 H (19-24) mmol/L ABG O2 Saturation 97.1 H (94-97) % Chloride (98-107) mmol/L BUN (7-17) mg/dL Total Protein (6.3-8.2) g/dL Albumin (3.5-5.0) g/dL Microbiology - Last 24 Hours (Table) 04/11/17 14:00 Gram Stain - Final Sputum Sputum Culture - Final Assessment and Plan (1) Toxic metabolic encephalopathy Current Visit: Yes Status: Acute Code(s): G92 - TOXIC ENCEPHALOPATHY SNOMED Code(s): 980838173 (2) Suicide attempt by multiple drug overdose Current Visit: Yes Status: Acute Code(s): T50.902A - POISONING BY UNSP DRUG/ MEDS/BIOL SUBST, SELF-HARM, INIT SNOMED Code(s): 86372815 (3) Suicidal ideation Current Visit: No Status: Acute Code(s): R45.851 - SUICIDAL IDEATIONS SNOMED Code(s): 5747978 (4) Major depressive disorder, recurrent severe without psychotic features Current Visit: No Status: Chronic Code(s): F33.2 - MAJOR DEPRESSV DISORDER, RECURRENT SEVERE W/O PSYCH FEATURES SNOMED Code(s): 35567323 (5) 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 Family at the bedside notes that the patient is returning to cognitive baseline and is regressing toward normal functional level. Physical exam findings are improving as noted. Overall the patient is improving. Patient's underlying etiology does appear to be toxic metabolic encephalopathy due to medication overdose. Continue neuro checks as ordered. Continue medications at existing dose and frequency. Continue DVT prophylaxis. Status: will continue to follow and provide updates as needed or warranted. Contact our office with any further questions or concerns. L[facility] Neurology For Dr Vikram Mcdaniel MD I discussed the patients history, physical exam, diagnostic testing, lab work and imaging with Dr Mcdaniel prior to implementing the plan above. He agrees with the plan as implemented prior to implementation.
[2017-04-13 18:53] LABS: Glucose,Whole Blood 87 mg/dL (75-99)
[2017-04-13] MEDS ORDERED: ACETAMINOPHEN TAB 325 MG TAB PO PRN (19:48)
[2017-04-13] MEDS ORDERED: lamoTRIgine 100 MG TAB PO SCH (21:00)
[2017-04-13] MEDS ORDERED: OLANZapine 5 MG TAB PO SCH (21:00)
[2017-04-13] MEDS ORDERED: OLANZapine 10 MG TAB PO SCH (21:00)
[2017-04-13] MEDS ORDERED: FLUoxetine HCL 20 MG CAP PO SCH (21:00)
--- NOTE | 2017-04-13 22:41 | PN ---
PROGRESS NOTE CHIEF COMPLAINT: Overdose and respiratory failure. HISTORY OF PRESENT ILLNESS: This lady is stable but still on a ventilator. There has been no interval change. PHYSICAL EXAM: Color is good. Pupils equal, and round. Chest is clear. Cardiac exam is normal. The abdomen is soft. IMPRESSION: 1. Drug overdose. 2. Major depression. 3. Respiratory failure with ventilator dependency. PLAN: Continue to follow. She is being seen by Neurology. MMODL / IJN: [id number] /
[2017-04-14] MEDS: CLINDAMYCIN 600 MG in DEXTROSE 5% IN WATER 50 ML IVPB SCH ×8 (00:10→23:05)
[2017-04-14] MEDS: SODIUM CHLORIDE 0.9% 1,000 ML IV SCH ×5 (00:10→23:27)
[2017-04-14] MEDS: LORazepam 2 MG/ML INJ IV PRN ×2 (00:15→10:58)
[2017-04-14] MEDS: INSULIN ASPART 100 UNIT/ML 1 ML 10 ML VIAL SQ SCH (00:30)
[2017-04-14] MEDS: HEPARIN SODIUM,PORCINE 5,000 UNIT/ML 1 ML VIAL SQ SCH ×4 (00:40→23:05)
[2017-04-14 04:19] LABS: Basophils % (A) 0 %; Eosinophils # (A) 0.1 k/uL (0-0.7); Eosinophils % (A) 2 %; HCT 35.6 % (34.0-46.0); HGB 11.6 gm/dL (11.4-16.0); Lymphocytes # (A) 1.4 k/uL (1.0-4.8); Lymphocytes % (A) 20 %; MCH 30.4 pg (25.0-35.0); MCHC 32.6 g/dL (31.0-37.0); MCV 93.2 fL (80.0-100.0); Mean Platelet Volume 7.4; Monocytes # (A) 0.4 k/uL (0-1.0); Monocytes % (A) 6 %; Neutrophils # (A) 4.8 k/uL (1.3-7.7); Neutrophils % (A) 71 %; Platelet Count 214 k/uL (150-450); RBC 3.82 m/uL (3.80-5.40); RDW 14.2 % (11.5-15.5); WBC 6.9 k/uL (4.0-11.0)
[2017-04-14 04:31] LABS: Anion Gap 13 mmol/L; Blood Urea Nitrogen 4 mg/dL (7-17); Calcium 9.4 mg/dL (8.4-10.2); Carbon Dioxide 24 mmol/L (22-30); Chloride 107 mmol/L (98-107); Glucose 87 mg/dL (74-99); Phosphorus 4.3 mg/dL (2.5-4.5); Potassium 3.9 mmol/L (3.5-5.1); Sodium 144 mmol/L (137-145)
[2017-04-14] MEDS ORDERED: POTASSIUM CHLORIDE 20 MEQ in SODIUM CHLORIDE 0.9% 100 ML IVPB ONE (06:00)
[2017-04-14] MEDS: IPRATROPIUM-ALBUTEROL 3 ML NEB INHALATION SCH ×4 (07:47→19:43)
[2017-04-14] MEDS: FAMOTIDINE 20 MG/2 ML VIAL IV SCH ×2 (08:00→20:17)
[2017-04-14 08:34] LABS: Glucose,Whole Blood 87 mg/dL (75-99)
[2017-04-14 09:51] VITALS: BMI 39.4
[2017-04-14 12:10] LABS: Glucose,Whole Blood 79 mg/dL (75-99)
--- NOTE | 2017-04-14 12:13 | CDI ---
Last Revision, February 2017 Documentation Clarification Form Date: 04/14/2017 11:59:00 AM From: Rasheeda North RN, CCDS Admit Date: 04/11/2017 6:50:00 AM Patient Name: Erik Silver Visit Number: [id number] ATTENTION: The Clinical Documentation Specialists (CDI) and [facility] Coding Staff appreciate your assistance in clarifying documentation. Please respond to the clarification below the line at the bottom and electronically sign. The CDI & [facility] Coding staff will review the response and follow-up if needed. Please note: Queries are made part of the Legal Health Record. If you have any questions, please contact the author of this message via ITS. Dr. Nba Davila Patient history/risk factors: Suicide attempt via drug overdose, acute respiratory failure, major depression Clinical Indicators: 04/12 & 04/13 Pulmonary Progress: "hypotension possibly secondary to combination of hypovolemia and Diprivan and the patient is on fluids and low-dose pressors at this point." Vitals: Temp 96.6, HR 114, RR 18, B/P 133/57, spo2 97% 2l nc B/P dropped 04/11 1335 to 81/50 Treatment: 2.5 IVF Bolus Levophed Gtt In your professional opinion, can you please provide clarification of hypotension? Septic Shock Suspected or known causative organism Any associated organ failure Cardiogenic Shock Cause Hypovolemic Shock Cause Other, please specify Unable to determine Please continue to document in your progress notes and discharge summary in order to capture severity of illness and risk of mortality. Include clinical findings that support your diagnosis. Hypotension, most likely drug induced. No evidence of any septic, cardiogenic or hypovolemic shock MTDD
--- NOTE | 2017-04-14 12:33 | CONS ---
CONSULTATION DATE OF SERVICE: 04/13/2017 PURPOSE OF CONSULTATION: Evaluate for overdose and long-term psychiatric issues. HISTORY OF PRESENT ILLNESS: The patient is a 21-year-old female. She was admitted to ICU for overdose. She has a long history of psychiatric difficulties. She had overdosed apparently on 22 tablets each of her three psychotropic medications namely Zyprexa 20 mg, Lamictal 200 mg and Prozac 60 mg. She was admitted to ICU with lethargy and obtundation. The patient was not able to respond in any appropriate way. I reviewed her case with her parents who were in the room with her. I am familiar with her case going back to her psychiatric admission December 22, 2016. I refer the reader to my admission note of that date for details. According to family, she has had long-term problems with mood disorder with a diagnosis of depression and/or bipolar disorder going back at least to age 11. She would have episodes of high energy, euphoric mood and racing thoughts. She would have intermittent periods of irritability and depression and mood swings. She has struggled since childhood with poor social function. As a teenager she has continued to have social difficulty. She has poor self-esteem. She has had a number of episodes of self- abusive behavior. According to parents, she has had 8 episodes of overdose. According to parents during her younger days going back to pre-adolescents. She had long-term placements in care facilities due to struggles with mood and behavior. She has had episodes of very disruptive behavior. She can have periods of agitation and aggressive behavior. She lives at home. She has been home schooled for an extended period of time. She had an overdose in December 2015 leading to coma and a very guarded prognosis. She had neuropsych evaluation December 07, 2016, indicating that she had normal intelligence, though significant cognitive difficulties in specific areas of neurologic function, particularly involving decision-making. She has been on multiple psychotropic medications in the past including significant extended trials of antipsychotic medications including Abilify, Zyprexa and others. Current psychotropic medications include Zyprexa 25 mg a day, Lamictal 200 mg a day and Prozac 60 mg a day. MENTAL STATUS EXAM: Patient was lying in bed. Mostly her eyes were closed. She did open her eyes occasionally. She made some mumbling sounds though she did not say anything that was intelligible. She was mildly restless, though otherwise unresponsive to people or things around her. ASSESSMENT: This 21-year-old female is diagnosed with mood disorder. I would raise concern for psychosis. There might be consideration for underlying autistic spectrum disorder including Asperger's disorder. It would be reasonable to consider a diagnosis of schizoaffective disorder. At this point, I would recommend the patient continue her current psychotropic medications until further evaluation. It is reasonable to resume Prozac 60 mg a day, Lamictal 200 mg a day and Zyprexa 25 mg a day. I discussed with the parents the option of starting clozapine which has an indication for treatment resistant schizophrenia as well as recurrent suicidal behavior and schizophrenia and schizoaffective disorder. Once the patient is medically stable, it would be reasonable to consider transfer to the psychiatric unit for further care. I will continue to follow. CHUCK / CAROLINE: [id number] /
[2017-04-14] MEDS: LEVOFLOXACIN 750MG-D5W PMX 750 MG in DEXTROSE/WATER 1 150ML.BAG IVPB SCH (12:42)
--- NOTE | 2017-04-14 15:07 | P.PN ---
Subjective Progress Note Date: 04/14/17 This is a 21-year-old female patient with a known history of chronic major recurrent depression. She is also a cutter. She has had approximately 10 suicide attempts in the past. She was most recently hospitalized here in December 2016. She and her parents had recently moved to the [facility] back in July 2016. Prior to that she had been treated by psychiatrists and both [place] and [place]. She was brought in here to the emergency room approximate 4:30 this morning after calling her parents from her bedroom stating that she took multiple pills in an attempt to harm her self. There is also some self-inflicted lacerations of the left wrist. She is seen in consultation in the emergency room. She is still somewhat obtunded. She is able to protect her airways currently. Maintain O2 saturations in the high 90s on 2 L/m per nasal cannula. She slightly tachycardic sinus. Her EKG is reviewed. No prolongation of the QT interval noted. She's been hemodynamically stable. Her CBC and electrolyte profile are within normal limits. Creatinine 0.79. Urine hCG was negative., Alcohol level was less than 10. Urine drug screen is positive for tricyclic antidepressants and benzodiazepines., The patient remains quite obtunded and the patient became progressively more short of breath and hypoxic and at one point she became briefly hypotensive. There was concern that the patient was not maintaining the patency of her airway and she would not be able to protect her airways. She had a week cough and a gag. She also had history of bronchial asthma and a chest x-ray was done upon my arrival showed a limited infiltration of the lung bases suspecting an underlying aspiration pneumonia. Early ARDS cannot be completely excluded as the patient was becoming progressively more hypoxic and short of breath. At that point I decided to intubate this patient and placed on mechanical ventilator. Post intubation chest x-ray showed some limited infiltration of the lung bases and there was improved aeration in lung bases and these findings could've been possibly atelectatic. I cover this patient with a combination of Levaquin and clindamycin for aspiration pneumonia. Put the patient on Diprivan for sedation. IV fluids. No pressors yet. The triple- lumen catheter was inserted. The patient got moved to the intensive care unit. The family was updated on her condition. We'll continue to follow. Condition is critical at this point. Lactic acid was obtained and was at 2.5. Blood gases was also noted. On 04/12/2017 the patient is being seen for a follow-up. As mentioned earlier the patient initially presented with acute suicidal attempt secondary to drug overdose. Subsequently the patient went into respiratory failure and she had to be intubated and placed on mechanical ventilator. There was a concern that the patient could have also aspirated. In any rate, the patient was intubated and she was transferred to the ICU. Overnight, the patient developed some jerky body movements involving the lower extremities and torso. Seizure activity was suspected knowing that based on the information given from the family the patient had seizure activity with previous drug withdrawal/toxicity. The acute jerky body movements/seizure activity was treated with Ativan. The patient was given 2 g IV Ativan which controlled the seizure activity and the propofol dose was increased up to 40 g per KG per minute. This morning, an EEG was done. Of the brain was also done this morning that showed no acute abnormalities. Awaiting a neurology consultation. At the time of my evaluation this morning, the patient was resting comfortably in bed. She was assist-control mode of ventilation. FiO2 is down to 35% with a tidal volume of 400 and a PEEP of 5. The patient's blood gas showed a pH of 7.37 with a pCO2 of 37 and pO2 113 and the chest x-ray showed possible right lower lobe and retrocardiac pulmonary infiltrates/pneumonia which could be potentially related to aspiration and there was any decubitus was in a good location. Note that overnight, the patient was dropping her urine output. She got resuscitated IV fluids. She was given several boluses and she was also supported with pressors and currently she is on few mics of norepinephrine infusion to support her blood pressure. She remains on examination of Levaquin and clindamycin. Blood cultures of been sent. Sputum culture has been sent pH is afebrile. Morning white cell count is at 9.7. Hemoglobin stable at 11.0. No significant metabolic acidosis. The bicarb level is at 21. Rest of the electrolytes are all within normal limits. On 04/13/2017, I'm seeing this patient for a follow-up. The patient is still on Diprivan this morning. No seizure activity has been noted. EEG came back negative. Neurological station was completed and there is no concern for any ongoing seizure this point. Based on all this, the patient will be given a sedation holiday. The patient was taken off Diprivan and the patient was found to be waking up gradually and following some simple commands. Weaning parameters were obtained and the patient was given a spontaneous breathing trial utilizing a pressure support of 5 and a PEEP of 5. Blood gases after 30 minutes showed a pH of 7.39 with a pCO2 of 40 and pO2 of 90. Based on that the patient was extubated to nasal cannula. Chest x-ray showed no acute abnormalities are than some limited left basilar infiltration and some limited right basilar infiltration consistent with aspiration. No bronchospasm. No wheezing. No agitation. Levo fed was weaned off and currently the patient is on few mics of norepinephrine infusion for blood pressure support. On 04/14/2017 the patient remains extubated and she is calm and comfortable. She has however somewhat in a previous/psychotic state. I think she is having some hallucinations as the patient tries to reach out and grab things and talk to people around her that are not present. Her thinking processes is not cohesive and she is unable to hold a reasonable conversation. No agitation. No restlessness. No respiratory distress. No seizure activity. No focal neurological deficit and the patient is moving all 4 extremity is without any limitation. No fever or chills. No reported aspiration. Hemodynamically stable. The patient is off pressors. No other significant events overnight. A bedside evaluation of the swallow was done and the patient swallows fine and the patient was started back on her oral psychiatric medication which includes Lamictal 200 mg, Zyprexa 20 mg and Prozac 60 mg. Family is at the bedside. Awaiting psychiatric evaluation. Neurology already saw the patient. CAT scan of the brain was negative. Objective - Vital Signs Vital signs: Vital Signs Temp 99.2 F 04/14/17 08:00 Pulse 96 04/14/17 14:00 Resp 22 04/14/17 14:00 BP 133/73 04/14/17 14:00 Pulse Ox 93 L 04/14/17 12:00 Intake & Output 04/13/17 04/14/17 04/14/17 18:59 06:59 18:59 Intake Total 2099.003 1500 1000 Output Total 2620 2875 1095 Balance -520.997 -1375 -95 Weight 101 kg 101 kg Intake: IV 1475 1450 800 Sodium Chloride 0.9% 1, 1475 1450 800 000 ml @ 75 mls/hr IV . [id number] [facility] Rx#:[id number] Intake, IV Titration 474.003 50 200 Amount Clindamycin 600 mg In 50 50 50 Dextrose 5% in Water 50 ml @ 100 mls/hr IVPB Q8HR [facility] Rx#:[id number] Levofloxacin 750Mg-D5w 150 Pmx 750 mg In Dextrose/ Water 1 150ml.bag @ 100 mls/hr IVPB Q24H [facility] Rx#: [id number] Magnesium Sulfate-D5w Pmx 200 1 gm In Dextrose/Water 1 100ml.bag @ 100 mls/hr IVPB Q1H [facility] Rx#: [id number] Potassium Chloride 20 meq 150 In Sodium Chloride 0.9% 100 ml @ 50 mls/hr IVPB ONCE ONE Rx#:[id number] Propofol 1,000 mg In 74.003 Empty Bag 1 bag @ Titrate IV .Q0M [facility] Rx#: [id number] Tube Feeding 120 Other 30 Output: Urine 2620 2875 1095 Other: Voiding Method Indwelling Catheter Indwelling Catheter Bedpan # Voids 0 - Exam Gen. appearance the patient is calm and comfortable awake yet drowsy and she will go back to sleep if left unstimulated. There was no scleral icterus or corneal arcus. Mucous membranes were moist.Neck was supple and without jugular venous distension, thyromegaly, or carotid bruits. Carotids were easily palpable bilaterally. There was no adenopathy. .Lungs were clear to auscultation and percussion, and with normal diaphragmatic excursion. No wheezes or rales were noted. Cardiac exam revealed the PMI to be normally situated and sized. The rhythm was regular and no extrasystoles were noted during several minutes of auscultation. The first and second heart sounds were normal and physiologic splitting of the second heart sound was noted. There were no murmurs, rubs, clicks, or gallops.Abdominal exam revealed normal bowel sounds. The abdomen was soft, non-tender, and without masses, organomegaly, or appreciable enlargement of the abdominal aorta.Examination of the extremities revealed easily palpable radial, femoral and pedal pulses. There was no cyanosis , clubbing or edema.Examination of the skin revealed no evidence of significant rashes, suspicious appearing nevi or other concerning lesions. Neurologically the patient is awake and she can follow some simple commands. She was able to move all 4 extremities to command. She is able to grab and reach. She may have an underlying delirium with some ongoing hallucinations an underlying psychotic state cannot be completely excluded. She is not fully cooperative. She cannot still hold a regular conversation. At times she states things are completely out of context. Family is at the bedside. - Labs CBC & Chem 7: 04/14/17 04:05 04/14/17 04:05 Labs: Abnormal Lab Results - Last 24 Hours (Table) 04/14/17 Range/Units 04:05 BUN 4 L (7-17) mg/dL Microbiology - Last 24 Hours (Table) 04/11/17 14:00 Gram Stain - Final Sputum Sputum Culture - Final Assessment and Plan Assessment: Assessment 1 acute drug overdose, with a combination of Prozac and Zyprexa and Lamictal. The patient has significant limitation in level of consciousness and diminished mentation for which the patient had to be intubated for the past 24-48 hours. Subsequently the drug effect has recovered and the patient got weaned off the mechanical ventilator. She was given sedation holiday and she was able to passively without any major difficulties and the patient was extubated. On the patient remains extubated currently on room air and the patient is not having any respiratory difficulties. Nevertheless neurologic functions are not completely recovered. The patient remains confused and there may be an underlying metabolic encephalopathy probably some residual drug effect. There may be an underlying psychosis/delirium. The psychiatric medications have been ordered resume. 2 diminished level of consciousness/altered consciousness secondary to drug overdose, secondary to above 3 acute respiratory failure with suspected bilateral aspiration pneumonia secondary to above. Currently the patient is extubated and she is well covered for possible aspiration pneumonia knowing that the patient had some limited infiltration of the lung bases bilaterally.. 4 chronic depression with multiple suicidal attempts in the past 5 seizure activity, suspected and the patient is on no epileptic medication and please refer to the neurologist input regarding this possibility of seizures. 6 bronchial asthma 7 hypotension possibly secondary to combination of hypovolemia and Diprivan and the blood pressure normalized after the sedation medication have been discontinued. The patient is producing adequate amount of urine output and she is hemodynamically stable at this point. Plan Monitor neurologic status. Awaiting a follow-up evaluation by neurology and psychiatry. Psychiatric medication been ordered resume. Aspiration precaution. Advance diet as tolerated. Continue same antibiotic coverage for potential aspiration pneumonia. Repeat chest x-ray in the morning. Cut down the IV fluids to 75 mL an hour. Monitor urine output. May discontinue the Knutson catheter. We'll continue to follow and we will keep the patient in ICU due to the above-mentioned reasons.
--- NOTE | 2017-04-14 16:16 | CONS ---
CONSULTATION DATE OF CONSULTATION: 04/14/2017 PURPOSE FOR CONSULTATION: Evaluate for overdose and long-term psychiatric issues. INTERVAL HISTORY: The patient continues to be confused. Mostly she is sedated. She has very brief periods where she will say a few things, though these periods will only last a matter of less than a minute. She does not have any persistent periods where her responsiveness is appropriate. She makes various comments that are delusional. She will move her hands, reaching out for things that are not there. She sleeps quite a bit of the time. When I saw the patient, her mother was in the room. Her mother noted issues above, which is the same that the nurse reported. She has not been any more responsive than just for brief moments here and there. She otherwise seems to rest quietly. When I saw her, she had her eyes closed throughout the interview. She did not make any effort to speak. At this point, I will discontinue her Prozac and Lamictal. Her Prozac has a long half life. I will get a fluoxetine level, which may give some guidance to where medication toxicity may be. I will change her Zyprexa to just 5 mg 3 times a day. The aim of Zyprexa is to help reduce thought disorder related to apparent delirium. I will continue to follow. MMODL / IJN: [id number] /
[2017-04-14] MEDS: OLANZapine 5 MG TAB PO SCH ×2 (16:59→21:30)
[2017-04-14 17:24] LABS: Glucose,Whole Blood 85 mg/dL (75-99)
--- NOTE | 2017-04-14 21:32 | P.PN ---
Subjective Progress Note Date: 04/14/17 Principal diagnosis: Medication overdose, suicide attempt, previous prior attempts Interval Update: 04/14/17: Patient has sitter at the bedside. Per nursing, the patient has intermittent agitation and aggressive behavior. Psychiatry has been requested to consult on the patient. Patient's overall neurological status is unchanged since yesterday. Patient was supine in bed in no acute distress at time of contact. Patient is a 21-year-old female is being followed by neurology for history of suicide attempt. Patient noted to have multiple psychiatric disorders and a history of multiple suicide attempts both of medication overdose and cutting. Staff reports that this is potentially her 10th attempt. She was brought to the ED by family after she informed that she overdosed on numerous medications including 20 tablets of Lamictal 200 mg, 20 tablets of Zyprexa 20 mg in 20 tablets of Prozac 60 mg in the ED the patient was initially drowsy but awake. She had become more drowsy and combative while in the ED and was sedated and intubated. At time of my contact with the patient, she was resting in the ICU and had just recently been extubated. Patient was agitated and supervising physician had already provided an order for Ativan. Provider stood by while nursing staff administered Ativan. Patient did calm down and was reactive with provider. EEG was noted to have mild encephalopathy. Urine drug screen history is positive for benzodiazepines and tricyclic antidepressants. CBC showed no leukocytosis but did have anemia with hemoglobin and hematocrit of 11 and 38% respectively. No seizure activity had been noted or reported. There is conflicting reports of possible occurrence of posturing for several seconds. Patient has no history of seizure disorder and had been on Lamictal for mood stabilization. Psychiatry is also consult on the patient. Objective - Vital Signs Vital signs: Vital Signs Temp 99.2 F 04/14/17 08:00 Pulse 98 04/14/17 19:00 Resp 20 04/14/17 19:00 BP 111/59 04/14/17 19:00 Pulse Ox 93 L 04/14/17 12:00 Intake & Output 04/14/17 04/14/17 04/15/17 06:59 18:59 06:59 Intake Total 1500 1300 75 Output Total 2875 1095 Balance -1375 205 75 Weight 101 kg 101 kg Intake: IV 1450 1100 75 Sodium Chloride 0.9% 1, 1450 1100 75 000 ml @ 75 mls/hr IV . [id number] [facility] Rx#:[id number] Intake, IV Titration 50 200 Amount Clindamycin 600 mg In 50 50 Dextrose 5% in Water 50 ml @ 100 mls/hr IVPB Q8HR [facility] Rx#:[id number] Potassium Chloride 20 meq 150 In Sodium Chloride 0.9% 100 ml @ 50 mls/hr IVPB ONCE ONE Rx#:[id number] Output: Urine 2875 1095 Other: Voiding Method Indwelling Catheter Bedpan # Voids 1 1 - Exam Gen. appearance: Alert, in no apparent distress Head: Atraumatic normocephalic, normal inspection Eyes: PERRL, EOMI. absent: Scleral icterus, conjunctival injection, nystagmus, periorbital swelling. Ear nose and throat: Normal exam, mucous membranes moist, recently extubated Neck: Normal inspection. Absent tenderness, lymphadenopathy Respiratory: No increased work of breathing. Cardiovascular: Regular rate, normal rhythm, normal heart sounds. Absent systolic murmur, diastolic murmur, rubs, gallops, clicks GIabdominal: Normal bowel sounds, non distended, no tenderness, no guarding, no rebound, no rigidity. Extremities: All range of motion, normal capillary refill, no tenderness, pedal edema, joint swelling, calf tenderness Neurological: Alert, no unilateral lateralizing weakness, no seizure activity noted on physical exam, no pronator drift and no nystagmus. cranial nerves II through XII appear grossly intact. Psychological: Mild agitation but cooperative - Labs CBC & Chem 7: 04/14/17 04:05 04/14/17 04:05 Labs: Abnormal Lab Results - Last 24 Hours (Table) 04/14/17 Range/Units 04:05 BUN 4 L (7-17) mg/dL Assessment and Plan (1) Toxic metabolic encephalopathy Current Visit: Yes Status: Acute Code(s): G92 - TOXIC ENCEPHALOPATHY SNOMED Code(s): 182175163 (2) Suicide attempt by multiple drug overdose Current Visit: Yes Status: Acute Code(s): T50.902A - POISONING BY UNSP DRUG/ MEDS/BIOL SUBST, SELF-HARM, INIT SNOMED Code(s): 11737036 (3) Suicidal ideation Current Visit: No Status: Acute Code(s): R45.851 - SUICIDAL IDEATIONS SNOMED Code(s): 6199588 (4) Major depressive disorder, recurrent severe without psychotic features Current Visit: No Status: Chronic Code(s): F33.2 - MAJOR DEPRESSV DISORDER, RECURRENT SEVERE W/O PSYCH FEATURES SNOMED Code(s): 18885976 (5) 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 Patient is returning to cognitive baseline and is progressing toward normal functional level. Patient is much more agitated to day and is requiring a bedside sitter. Physical exam findings are improving as noted. Overall the patient is improving. Patient's underlying etiology does appear to be toxic metabolic encephalopathy due to medication overdose, but it does appear that the patient is now exhibiting some significant psychiatric concerns with regard to snf management and rehabilitation if needed. Continue neuro checks as ordered. Continue medications at existing dose and frequency. Continue DVT prophylaxis. Status: will continue to follow on an as needed basis Contact our office with any further questions or concerns. Rogelio Soler, [employer] SOFTWARE ENGINEER-C Neurology For Dr Vikram Garvey MD I discussed the patients history, physical exam, diagnostic testing, lab work and imaging with Dr Garvey prior to implementing the plan above. He agrees with the plan as implemented prior to implementation.
[2017-04-15] MEDS: SODIUM CHLORIDE 0.9% 1,000 ML IV SCH ×3 (05:56→15:16)
--- NOTE | 2017-04-15 07:56 | PN ---
PROGRESS NOTE DATE OF SERVICE: 04/14/2017. CHIEF COMPLAINT: Drug ingestion overdose with coma. HISTORY OF PRESENT ILLNESS: This lady is progressing slowly. She is extubated and she is semi-alert, but still very lethargic. PHYSICAL EXAM: Vital signs are normal. Breath sounds are heard on both sides. Cardiac exam is normal. The abdomen is soft, nontender. and she is moving both sides. IMPRESSION: 1. Lethargy. 2. Drug ingestion and overdose. PLAN: Continue to monitor until she is fully awake. MMODL / IJN: [id number] /
[2017-04-15] MEDS: IPRATROPIUM-ALBUTEROL 3 ML NEB INHALATION SCH ×3 (08:17→15:42)
[2017-04-15] MEDS: CLINDAMYCIN 600 MG in DEXTROSE 5% IN WATER 50 ML IVPB SCH ×2 (08:21)
[2017-04-15] MEDS: FAMOTIDINE 20 MG/2 ML VIAL IV SCH (08:21)
[2017-04-15] MEDS: HEPARIN SODIUM,PORCINE 5,000 UNIT/ML 1 ML VIAL SQ SCH ×2 (08:21→15:16)
[2017-04-15] MEDS: OLANZapine 5 MG TAB PO SCH ×2 (08:22→15:16)
[2017-04-15 08:43] LABS: Basophils % (A) 0 %; Eosinophils % (A) 0 %; HCT 38.2 % (34.0-46.0); HGB 12.3 gm/dL (11.4-16.0); Lymphocytes % (A) 37 %; MCH 29.9 pg (25.0-35.0); MCHC 32.2 g/dL (31.0-37.0); MCV 92.9 fL (80.0-100.0); Mean Platelet Volume 7.7; Monocytes # (A) 0.4 k/uL (0-1.0); Monocytes % (A) 7 %; Neutrophils # (A) 2.9 k/uL (1.3-7.7); Neutrophils % (A) 53 %; Platelet Count 273 k/uL (150-450); RBC 4.11 m/uL (3.80-5.40); RDW 13.9 % (11.5-15.5); WBC 5.4 k/uL (4.0-11.0)
[2017-04-15 09:30] LABS: Anion Gap 12 mmol/L; Blood Urea Nitrogen 15 mg/dL (7-17); Calcium 9.6 mg/dL (8.4-10.2); Carbon Dioxide 23 mmol/L (22-30); Chloride 108 mmol/L (98-107); Glucose 105 mg/dL (74-99); Magnesium 1.9 mg/dL (1.6-2.3); Phosphorus 5.1 mg/dL (2.5-4.5); Potassium 3.9 mmol/L (3.5-5.1); Sodium 143 mmol/L (137-145)
--- NOTE | 2017-04-15 09:56 | XR ---
EXAMINATION TYPE: XR chest 1V portable DATE OF EXAM: 04/15/2017 HISTORY: Shortness of breath. REFERENCE: Previous study dated 04/13/2017. FINDINGS: The patient is ET tube and NG tube have been removed. There is improved aeration at the lef t lung base. The lungs now appear clear. Pleural spaces are clear. The right hilum is prominent but t his is likely due to rotation. The heart is not enlarged. IMPRESSION: IMPROVED AERATION, LEFT LUNG BASE.
--- NOTE | 2017-04-15 13:30 | P.PN ---
Subjective Progress Note Date: 04/15/17 This is a 21-year-old female patient with a known history of chronic major recurrent depression. She is also a cutter. She has had approximately 10 suicide attempts in the past. She was most recently hospitalized here in December 2016. She and her parents had recently moved to the [facility] back in July 2016. Prior to that she had been treated by psychiatrists and both [place] and [place]. She was brought in here to the emergency room approximate 4:30 this morning after calling her parents from her bedroom stating that she took multiple pills in an attempt to harm her self. There is also some self-inflicted lacerations of the left wrist. She is seen in consultation in the emergency room. She is still somewhat obtunded. She is able to protect her airways currently. Maintain O2 saturations in the high 90s on 2 L/m per nasal cannula. She slightly tachycardic sinus. Her EKG is reviewed. No prolongation of the QT interval noted. She's been hemodynamically stable. Her CBC and electrolyte profile are within normal limits. Creatinine 0.79. Urine hCG was negative., Alcohol level was less than 10. Urine drug screen is positive for tricyclic antidepressants and benzodiazepines., The patient remains quite obtunded and the patient became progressively more short of breath and hypoxic and at one point she became briefly hypotensive. There was concern that the patient was not maintaining the patency of her airway and she would not be able to protect her airways. She had a week cough and a gag. She also had history of bronchial asthma and a chest x-ray was done upon my arrival showed a limited infiltration of the lung bases suspecting an underlying aspiration pneumonia. Early ARDS cannot be completely excluded as the patient was becoming progressively more hypoxic and short of breath. At that point I decided to intubate this patient and placed on mechanical ventilator. Post intubation chest x-ray showed some limited infiltration of the lung bases and there was improved aeration in lung bases and these findings could've been possibly atelectatic. I cover this patient with a combination of Levaquin and clindamycin for aspiration pneumonia. Put the patient on Diprivan for sedation. IV fluids. No pressors yet. The triple- lumen catheter was inserted. The patient got moved to the intensive care unit. The family was updated on her condition. We'll continue to follow. Condition is critical at this point. Lactic acid was obtained and was at 2.5. Blood gases was also noted. On 04/12/2017 the patient is being seen for a follow-up. As mentioned earlier the patient initially presented with acute suicidal attempt secondary to drug overdose. Subsequently the patient went into respiratory failure and she had to be intubated and placed on mechanical ventilator. There was a concern that the patient could have also aspirated. In any rate, the patient was intubated and she was transferred to the ICU. Overnight, the patient developed some jerky body movements involving the lower extremities and torso. Seizure activity was suspected knowing that based on the information given from the family the patient had seizure activity with previous drug withdrawal/toxicity. The acute jerky body movements/seizure activity was treated with Ativan. The patient was given 2 g IV Ativan which controlled the seizure activity and the propofol dose was increased up to 40 g per KG per minute. This morning, an EEG was done. Of the brain was also done this morning that showed no acute abnormalities. Awaiting a neurology consultation. At the time of my evaluation this morning, the patient was resting comfortably in bed. She was assist-control mode of ventilation. FiO2 is down to 35% with a tidal volume of 400 and a PEEP of 5. The patient's blood gas showed a pH of 7.37 with a pCO2 of 37 and pO2 113 and the chest x-ray showed possible right lower lobe and retrocardiac pulmonary infiltrates/pneumonia which could be potentially related to aspiration and there was any decubitus was in a good location. Note that overnight, the patient was dropping her urine output. She got resuscitated IV fluids. She was given several boluses and she was also supported with pressors and currently she is on few mics of norepinephrine infusion to support her blood pressure. She remains on examination of Levaquin and clindamycin. Blood cultures of been sent. Sputum culture has been sent pH is afebrile. Morning white cell count is at 9.7. Hemoglobin stable at 11.0. No significant metabolic acidosis. The bicarb level is at 21. Rest of the electrolytes are all within normal limits. On 04/13/2017, I'm seeing this patient for a follow-up. The patient is still on Diprivan this morning. No seizure activity has been noted. EEG came back negative. Neurological station was completed and there is no concern for any ongoing seizure this point. Based on all this, the patient will be given a sedation holiday. The patient was taken off Diprivan and the patient was found to be waking up gradually and following some simple commands. Weaning parameters were obtained and the patient was given a spontaneous breathing trial utilizing a pressure support of 5 and a PEEP of 5. Blood gases after 30 minutes showed a pH of 7.39 with a pCO2 of 40 and pO2 of 90. Based on that the patient was extubated to nasal cannula. Chest x-ray showed no acute abnormalities are than some limited left basilar infiltration and some limited right basilar infiltration consistent with aspiration. No bronchospasm. No wheezing. No agitation. Levo fed was weaned off and currently the patient is on few mics of norepinephrine infusion for blood pressure support. On 04/14/2017 the patient remains extubated and she is calm and comfortable. She has however somewhat in a previous/psychotic state. I think she is having some hallucinations as the patient tries to reach out and grab things and talk to people around her that are not present. Her thinking processes is not cohesive and she is unable to hold a reasonable conversation. No agitation. No restlessness. No respiratory distress. No seizure activity. No focal neurological deficit and the patient is moving all 4 extremity is without any limitation. No fever or chills. No reported aspiration. Hemodynamically stable. The patient is off pressors. No other significant events overnight. A bedside evaluation of the swallow was done and the patient swallows fine and the patient was started back on her oral psychiatric medication which includes Lamictal 200 mg, Zyprexa 20 mg and Prozac 60 mg. Family is at the bedside. Awaiting psychiatric evaluation. Neurology already saw the patient. CAT scan of the brain was negative. On 04/15/2017 the patient is doing extremely well. She is alert and awake and she's communicating. No signs of any hallucination or delirium or psychosis at this point. Her sensorium is much more clear and her speech is improved and she is able to handle a conversation reasonably well. No headaches. No focal neurological deficit. No respiratory distress. She is tolerating diet. She was seen by psychiatry and the Zyprexa was kept on the Prozac was dropped. The patient was also taken off the Lamictal. The patient has no specific complaints. No fever or chills. Chest x-rays clear. Antibiotic will be stopped. IV fluids will be hep-locked. The patient may potentially moved out of the intensive care unit with a 24 hour sitter. Objective - Vital Signs Vital signs: Vital Signs Temp 98.3 F 04/15/17 04:00 Pulse 90 04/15/17 13:07 Resp 20 04/15/17 12:00 BP 118/80 04/15/17 12:00 Pulse Ox 96 04/15/17 06:00 Intake & Output 04/14/17 04/15/17 04/15/17 18:59 06:59 18:59 Intake Total 1300 975 150 Output Total 1095 625 0 Balance 205 350 150 Weight 101 kg 98.6 kg 98.6 kg Intake: IV 1100 975 150 Sodium Chloride 0.9% 1, 1100 975 150 000 ml @ 75 mls/hr IV . [id number] [facility] Rx#:[id number] Intake, IV Titration 200 Amount Clindamycin 600 mg In 50 Dextrose 5% in Water 50 ml @ 100 mls/hr IVPB Q8HR [facility] Rx#:[id number] Potassium Chloride 20 meq 150 In Sodium Chloride 0.9% 100 ml @ 50 mls/hr IVPB ONCE ONE Rx#:[id number] Output: Urine 1095 625 0 Other: Voiding Method Bedpan Bedpan Bedpan # Voids 1 1 0 - Exam The patient appeared well nourished and normally developed. Vital signs as documented. Head exam is unremarkable. No scleral icterus or corneal arcus noted. Neck is without jugular venous distension, thyromegaly, or carotid bruits. Carotid upstrokes are brisk bilaterally. Lungs are clear to auscultation and percussion. Cardiac exam reveals the PMI to be normally sized and situated. Rhythm is regular. First and second heart sounds normal. No murmurs, rubs or gallops. Abdominal exam reveals normal bowel sounds, no masses , no organomegaly and no aortic enlargement. Extremities are nonedematous and both femoral and pedal pulses are normal. - Labs CBC & Chem 7: 04/15/17 08:30 04/15/17 08:30 Labs: Abnormal Lab Results - Last 24 Hours (Table) 04/15/17 Range/Units 08:30 Chloride 108 H (98-107) mmol/L Glucose 105 H (74-99) mg/dL Phosphorus 5.1 H (2.5-4.5) mg/dL Assessment and Plan Assessment: Assessment 1 acute drug overdose, with a combination of Prozac and Zyprexa and Lamictal. The patient has significant limitation in level of consciousness and diminished mentation for which the patient had to be intubated for the past 24-48 hours. Subsequently the drug effect has recovered and the patient got weaned off the mechanical ventilator. She was given sedation holiday and she was able to passively without any major difficulties and the patient was extubated. On the patient remains extubated currently on room air and the patient is not having any respiratory difficulties. Nevertheless neurologic functions are not completely recovered. The patient remains confused and there may be an underlying metabolic encephalopathy probably some residual drug effect. There may be an underlying psychosis/delirium. The psychiatric medications have been ordered resume. On 04/15/2017, the patient has recovered from her acute drug overdose and she is back to her normal terms of her mentation. She is hemodynamically stable. 2 diminished level of consciousness/altered consciousness secondary to drug overdose, recovered 3 acute respiratory failure with suspected bilateral aspiration pneumonia secondary to above, recovered 4 chronic depression with multiple suicidal attempts in the past 5 seizure activity, suspected and the patient is on no epileptic medication and please refer to the neurologist input regarding this possibility of seizures. 6 bronchial asthma Plan IV to Hep-Lock. Stop all antibiotics. Knutson catheter has been removed. Advance diet. Psychiatric follow-up. He can go to a medical floor with 24 hour sitter at all times.
[2017-04-15 14:06] VITALS: BP 116/75; RESP 18; TEMP 96.7
--- NOTE | 2017-04-15 15:32 | PN ---
PROGRESS NOTE DATE OF SERVICE: 04/15/2017 CHIEF COMPLAINT: Overdose. HISTORY OF PRESENT ILLNESS: This young lady is doing much better. She is now fully awake and alert. PHYSICAL EXAMINATION: Vital signs normal. She is pale. IMPRESSION: 1. Drug overdose. 2. Major depression. PLAN: She can probably be moved off to the floor with a sitter or to the psych unit. MMODL / IJN: [id number] /
[2017-04-15 15:52] VITALS: PULSE 90
--- NOTE | 2017-04-15 16:53 | CONS ---
CONSULTATION DATE OF CONSULTATION: 04/15/2017. PURPOSE FOR CONSULTATION: Evaluate for overdose and long-term psychiatric issues. INTERVAL HISTORY: The patient has improved significantly. She has been awake. She has been communicating. She is talking appropriately. Her thoughts are clear. She has been transferred out of ICU to step-down. She seems to be doing fairly well. When I talked to her she respond appropriately to questions. She was interactive. She could tell me it was March 2017, but could remember the day or date. She was appropriate in her interactions. ASSESSMENT: I will continue a diagnosis of schizoaffective disorder. I discussed with the patient the option of starting Clozaril to which she was in agreement. I will start the patient on Clozaril 25 mg tonight. Tomorrow she will start 25 mg twice a day. At this point, I will continue her Zyprexa though look to taper her Zyprexa as we titrate up on clozapine. I will keep her off her Prozac and Lamictal. Fluoxetine level is pending. We will transfer the psychiatric unit when medically stable. MMODL / IJN: [id number] /
[2017-04-15] MEDS ORDERED: cloZAPine 25 MG TAB PO SCH (21:00)
--- NOTE | 2017-04-18 07:08 | DS ---
DISCHARGE SUMMARY CHIEF COMPLAINT: Drug ingestion overdose and suicide attempt. HISTORY OF PRESENT ILLNESS AND PHYSICAL EXAM: Details of this lady's history and physical can be found in the initial workup. LABORATORY STUDIES: While she was in the hospital she had laboratory studies, details which can be found in the laboratory section of her chart. COURSE IN HOSPITAL: After admission, she was placed in bedrest and started on intravenous fluids and was monitored in the intensive care unit and followed by Pulmonology. She initially was on ventilator and was eventually able to be extubated after she became more awake and alert. Once she has regained full neurologic function, she was transferred to Psychiatry. FINAL DIAGNOSES: 1. Major depression. 2. Suicide attempt. 3. Overdose. 4. Respiratory failure. OPERATIONS: None. CONSULTATIONS: Intensive Medicine and She is improved. ASTERL / MARCELON: [id number] /
[2017-04-18 11:04] LABS: Fluoxetine (Prozac) 412 ng/mL (50-480)
== END 2017-04-15 19:21 | DRG 917 ==
LOC: EC 04:13 → 6ICU 06:50 → 4MS4W 04-15 13:41
PROVIDERS: ADMIT Family Medicine; ATTEND Family Medicine
PROC: 5A1945Z Respiratory Ventilation, 24-96 Consecutive Hours (ICD-10-PCS; principal; 2017-04-11)
PROC: 0BH17EZ Insertion of Endotracheal Airway into Trachea, Via Natural or Artificial Opening (ICD-10-PCS; 2017-04-11)
DX: T43.222A Poisoning by selective serotonin reuptake inhibitors, intentional self-harm, initial encounter (principal); G92 Toxic encephalopathy; J96.01 Acute respiratory failure with hypoxia; J69.0 Pneumonitis due to inhalation of food and vomit; F33.2 Major depressive disorder, recurrent severe without psychotic features; R56.9 Unspecified convulsions; I95.9 Hypotension, unspecified; D64.9 Anemia, unspecified; S61.512A Laceration without foreign body of left wrist, initial encounter; E86.1 Hypovolemia; T41.295A Adverse effect of other general anesthetics, initial encounter; F25.9 Schizoaffective disorder, unspecified; T43.592A Poisoning by other antipsychotics and neuroleptics, intentional self-harm, initial encounter; G31.84 Mild cognitive impairment of uncertain or unknown etiology; F17.200 Nicotine dependence, unspecified, uncomplicated; F43.10 Post-traumatic stress disorder, unspecified; J45.909 Unspecified asthma, uncomplicated; F41.9 Anxiety disorder, unspecified; Z79.899 Other long term (current) drug therapy; Z88.0 Allergy status to penicillin; Z91.5 Personal history of self-harm; X78.9XXA Intentional self-harm by unspecified sharp object, initial encounter; Y92.239 Unspecified place in hospital as the place of occurrence of the external cause; Y92.9 Unspecified place or not applicable
CPT/HCPCS: 12002; 31500; 36415; 36556; 36600; 51701; 70450; 71045; 80048; 80053; 80299; 80306; 80320; 81003; 81025; 82550; 82805; 83036; 83520; 83605; 83735; 84100; 85025; 87070; 87205; 93005; 94002; 94003; 94640; 95816; 96361; 96374; 96375; 99285

== ENCOUNTER 2017-04-15 19:22 | Inpatient (IN) | payer OTHER ==
[2017-04-15] MEDS ORDERED: MAGNESIUM HYDROXIDE 2,400 MG/10 ML CUP PO PRN (19:39)
[2017-04-15] MEDS ORDERED: ACETAMINOPHEN TAB 325 MG TAB PO PRN (19:39)
[2017-04-15] MEDS ORDERED: MAG HYDROX/AL HYDROX/SIMETH 30 ML CUP PO PRN (19:39)
[2017-04-15] MEDS: cloZAPine 25 MG TAB PO SCH (21:33)
[2017-04-15] MEDS: OLANZapine 5 MG TAB PO SCH (21:33)
[2017-04-16] MEDS: cloZAPine 25 MG TAB PO SCH ×2 (09:51→20:13)
[2017-04-16] MEDS: OLANZapine 5 MG TAB PO SCH ×2 (09:51→15:45)
[2017-04-16 17:49] LABS: Hemoglobin A1C 5.2 % (4.0-6.0)
--- NOTE | 2017-04-16 19:45 | HP ---
HISTORY AND PHYSICAL IDENTIFYING DATA: Patient is a 21-year-old female. She lives with her parents. She was admitted initially to ICU, then transferred to step-down and then to Psychiatry. CHIEF COMPLAINT: The patient intentionally overdosed on medications and presented to the hospital with confusion. She has a long history of psychiatric issues. HISTORY OF PRESENTING ILLNESS: The patient had overdosed on a significant amount of her psychotropic medications including Lamictal 200 mg, Zyprexa 20 mg and Prozac 60 mg. Presumably, she took 22 tablets of each. She was obtunded when she presented to the hospital. She was on a ventilator. She has long-term psychiatric issues with a past diagnosis of depression and/or bipolar disorder going back to age 11. She has episodes of high energy, euphoric mood and racing thoughts. She has intermittent periods of irritability , depression and mood swings. She has struggled through childhood with poor social function. She has had 8 past episodes of overdose. She has had placements in long- term youth facilities going back to preadolescence. At home she has had continued problems with episodes of agitation, aggression, and other disruptive behavior. She had a serious overdose in 2016 leading to coma with a very guarded prognosis. Neuropsych evaluation December 07, 2016 indicated she had normal intelligence, though significant cognitive difficulty in specific areas of neurologic function, particularly involving decision-making. She has been on multiple psychotropic medications in the past. Her current psychotropic medications prior to admission included Prozac 60 mg a day, Zyprexa 25 mg a day and Lamictal 200 mg a day. She is admitted for further evaluation. SUBSTANCE USE HISTORY: Negative. PAST MEDICAL HISTORY AND REVIEW OF SYSTEMS: As per medical H&P of Dr. Thakkar dated 04/11/2017. FAMILY AND SOCIAL HISTORY: I refer the reader to prior admission notes for psychiatric hospitalizations including 12/23/2016 and 10/03/2016 for details. MENTAL STATUS EXAM: Patient was lying in bed. She gave good eye contact. Psychomotor activity was a little slowed. Speech was monotone. She answered questions with direct responses. Her thoughts were clear. Her affect was blunted. Mood reserved. She did not appear to be significantly distressed. There was no indication of thought disorder. On cognitive exam, she was oriented x3 and alert. Recent and remote memory was intact. She could spell world forward and backward. She did adequate calculations. Insight and judgment limited. Fund of knowledge and intellectual level average. PHYSICAL EXAM: As per Dr. Thakkar. ASSESSMENT: This 21-year-old female has had a diagnosis of mood disorder. At this point, I would initiate a diagnosis of schizoaffective disorder given the array of symptoms and problems the patient has. She does appear to have episodes where she loses touch with reality, as well as episodes of prominent mood difficulties. There might be consideration for autistic spectrum disorder including Asperger's disorder. I had an extensive discussion with the patient and with her parents. At this point, it is reasonable to continue the patient off Prozac and Lamictal. I will reduce the dose of Zyprexa primarily aimed to help in resolving some symptoms of delirium relating to her overdose. I will start the patient on clozapine 25 mg a day. We will titrate up on the dose and look to taper the patient off Zyprexa. A fluoxetine level is pending. We will focus on stabilization and discharge planning. CHUCK / MARCELON: [id number] / NINO
[2017-04-17] MEDS: cloZAPine 25 MG TAB PO SCH ×2 (10:38→20:54)
--- NOTE | 2017-04-17 11:33 | PN ---
PROGRESS NOTE DATE OF SERVICE: 04/17/2017. CHIEF COMPLAINT: The patient had overdosed on a significant amount of her psychotropic medications. She has a long history of mental health difficulties. INTERVAL HISTORY: Patient has been doing fair. She had a quiet evening last night. She said she had trouble falling asleep last night. Today she has been in her room. She has been napping this morning. She says that overall things are going fairly well for her. Her mood is somewhat improved. She has not had problems with the start of her Clozaril. She seems somewhat subdued in her manner. She has tended to isolate herself. She attends groups this sporadically. She has not had change in her general health. She tolerates her psychotropic medications. MENTAL STATUS: Patient gave fair eye contact. Psychomotor activity was slowed. Speech was monotone. She answered questions with brief responses. Her thoughts were clear. Her affect was a little blunted. Her mood is subdued. She did appear to be significantly distressed. ASSESSMENT: I will continue the current diagnosis and treatment plan. I will continue to titrate up on Clozaril. I strongly encouraged the patient to get on a therapeutic working program at to help better manage stress issues and improve function. I encouraged her towards groups. We will continue to focus on stabilization and discharge planning. MMODL / IJN: [id number] /
--- NOTE | 2017-04-17 17:30 | CONS ---
CONSULTATION CHIEF COMPLAINT: Overdose and depression. HISTORY OF PRESENT ILLNESS: The details of this 21-year-old, white female's history can be found in the records accompanying her from the medical floor. She was treated in ICU after she overdosed and then received ventilator support. She gradually became awake and alert. After she was fully cognizant, she was brought to the mental health unit. REVIEW OF SYSTEMS: She has no complaints. Past medical history, family history, personal and social history these can all be found in recent admitting documents. PHYSICAL EXAM: Blood pressure is 136/84 with a pulse of 82, respirations 19. She is afebrile. In general she appeared to be slightly overweight in no acute distress. Skin color is normal. Skin is warm, dry. Lymph nodes not enlarged. Head, ears, eyes, nose, mouth, and throat were normal. Neck veins not distended. Thyroid is not enlarged. Chest is clear. Cardiac exam is normal. Abdomen is soft, nontender. Extremities are normal. IMPRESSION: 1. Major depression. 2. Overdose. RECOMMENDATIONS: No change in program. MMODL / IJN: [id number] /
[2017-04-18] MEDS: cloZAPine 25 MG TAB PO SCH (09:32)
[2017-04-18] MEDS ORDERED: cloZAPine 25 MG TAB PO SCH (21:00)
--- NOTE | 2017-04-18 21:32 | PN ---
PROGRESS NOTE DATE OF SERVICE: 04/18/2017. CHIEF COMPLAINT: The patient had overdosed on a significant amount of her psychotropic medications. She has a long history of mental health difficulties. INTERVAL HISTORY: The patient has been doing fairly well overall. She had a quiet evening last night. She slept well. Today she has been up. She says when she takes her morning clozapine it makes her quite tired. She otherwise has been doing fairly well. She comes out in the day area. She will attend groups. She has been appropriate in her interactions with others. She has not had change in her general health. She appears to tolerate her psychotropic medications other than for some sedation. MENTAL STATUS: Patient gave good eye contact. Psychomotor activity was slowed. Speech was monotone. She answered questions with brief responses. Her affect was blunted. Mood reserved. She did appear to be significantly distressed. ASSESSMENT: I will continue the current diagnosis and treatment plan. I will increase her Clozaril. Her nighttime dose tonight will be 125 mg so that she will be on a total of 200 mg a day as of today. Tomorrow, I will reduce her morning dose to 50 mg and then continue to increase her nighttime dose. It is noted that the patient was initially seen in the emergency room on 04/11 at 0400. She presumably had taken 22 tablets of Prozac 20 mg a day. On April 13 she received 60 mg of Prozac as her only dose during her hospitalization and on 04/14 at 0400 she had a Prozac level of 412/103. The level does suggest that she had not ingested the amount of Prozac that was indicated and that her overall exposure to Prozac had to be significantly less than the reported 22 tablets. This would especially be the case if she had been taking her Prozac consistently at home. At this point, we will continue to focus on stabilization and discharge planning. MMODL / IJN: [id number] /
[2017-04-19] MEDS ORDERED: cloZAPine 25 MG TAB PO SCH (09:00)
[2017-04-19 10:18] LABS: Basophils % (A) 0 %; Eosinophils # (A) 0.3 k/uL (0-0.7); Eosinophils % (A) 5 %; HCT 47.8 % (34.0-46.0); HGB 16.1 gm/dL (11.4-16.0); Lymphocytes # (A) 2.1 k/uL (1.0-4.8); Lymphocytes % (A) 32 %; MCH 31.9 pg (25.0-35.0); MCHC 33.6 g/dL (31.0-37.0); MCV 94.8 fL (80.0-100.0); Mean Platelet Volume 7.3; Monocytes # (A) 0.4 k/uL (0-1.0); Monocytes % (A) 6 %; Neutrophils # (A) 3.6 k/uL (1.3-7.7); Neutrophils % (A) 55 %; Platelet Count 271 k/uL (150-450); RBC 5.04 m/uL (3.80-5.40); RDW 14.4 % (11.5-15.5); WBC 6.7 k/uL (4.0-11.0)
--- NOTE | 2017-04-19 17:04 | PN ---
PROGRESS NOTE DATE OF SERVICE: 04/19/2017 CHIEF COMPLAINT: The patient had overdosed on a significant amount of her psychotropic medication. She has a long history of mental health difficulties. INTERVAL HISTORY: Patient has been doing fairly well. She slept well last night. She says she is a little less tired today than she had been. She said her mood is improving. I had a family meeting with the patient and her parents. The patient was saying that she feels ready to go home, though parents were able to note that she seems quite withdrawn and not anywhere near as responsive as what she should be at baseline. We had an extensive discussion regarding a diagnosis of schizoaffective disorder as well as the indications for her clozapine therapy, namely for schizophrenia as well as suicidal behavior in schizophrenia and schizoaffective disorder. Parents were able to confirm a likely diagnosis of schizoaffective disorder. We discussed that blood work suggests that she may not have been exposed to as much medication as was initially reported. We discussed further treatment and discharge planning. Patient has not had change in her general health. She tolerates her psychotropic medications. MENTAL STATUS: The patient gave a fair eye contact. Psychomotor activity was slowed. Speech was somewhat monotone. She had a lethargic manner. Her affect was blunted, her mood quiet. She did not appear to be significantly distressed. ASSESSMENT: I will continue the current diagnosis and treatment plan. I will continue to titrate up on her clozapine. Tomorrow she will receive 50 mg in the morning, 200 mg at bedtime. I will continue to increase her dose to between 300 and 400 mg. We will focus on stabilization and discharge planning. I anticipate the patient will be discharged early in the week. CHUCK / CAROLINE: [id number] /
[2017-04-19] MEDS ORDERED: cloZAPine 100 MG TAB PO SCH (21:00)
[2017-04-20] MEDS: cloZAPine 25 MG TAB PO SCH (08:45)
--- NOTE | 2017-04-20 11:17 | PN ---
PROGRESS NOTE DATE OF SERVICE: 04/20/2017. CHIEF COMPLAINT: The patient had overdosed on a significant amount of her psychotropic medication. She has a long history of mental health difficulties. INTERVAL HISTORY: Patient has been doing fairly well. She had a quiet evening last night. She slept fairly well. Today she has been up. She comes out in the day area. She has been functioning appropriately. She attends most groups. She has a somewhat reserved mood, though she does not seem to be significantly down or depressed. She has not had change in her general health. She tolerates her psychotropic medications. MENTAL STATUS: Patient gave fair eye contact. Psychomotor activity was slowed. Speech was monotone. She answered questions with brief responses. Her thoughts were clear. Her affect blunted. Her mood reserved. She did not appear to be significantly distressed. ASSESSMENT: I will continue the current diagnosis and treatment plan. I will continue to titrate up on her clozapine. Today, she will be on a total of 250 mg a day. I will aim for a target dose of between 300 and 400 mg a day. We will look to discharge the patient early in the week. MMMARIANNEL / MARCELON: [id number] /
[2017-04-20] MEDS ORDERED: cloZAPine 100 MG TAB PO SCH ×2 (21:00)
[2017-04-20] MEDS ORDERED: cloZAPine 100 MG TAB PO ONE (21:00)
[2017-04-21] MEDS: cloZAPine 25 MG TAB PO SCH (09:19)
--- NOTE | 2017-04-21 15:09 | PN ---
PROGRESS NOTE DATE OF SERVICE: 04/21/2017. CHIEF COMPLAINT: The patient had overdosed on a significant amount of her psychotropic medications. She has a long history of mental health difficulties. INTERVAL HISTORY: Patient has been doing fairly well. She had a quiet evening last night. She slept well. Today she has been up. She said that she was tired in the morning time. Overall she seems to maintain a reasonable mood. She will interact a little with others, though she tends to be a little more withdrawn than not. She has not been inclined to attend groups. She was able to talk about discharge planning issues. We reviewed her medications. She was in agreement with the treatment plan. She has not had change in her general health. She tolerates her psychotropic medications. MENTAL STATUS: Patient gave fair eye contact. Psychomotor activity was slowed. Speech was monotone. She answered questions with brief responses. Her thoughts were clear, her affect blunted, her mood quiet. She did not appear to be distressed. ASSESSMENT: I will continue the current diagnosis and treatment plan. I will continue to titrate up on her clozapine. Today her dose will go up to 300 mg a day. Tomorrow it will go up to 350 mg a day. I will continue her at that dose. We will get a Clozaril level on Monday. We will aim towards discharge on Monday if she continues to remain stable. MMMARIANNEL / MARCELON: [id number] /
[2017-04-21] MEDS ORDERED: cloZAPine 100 MG TAB PO SCH (21:00)
[2017-04-22] MEDS: cloZAPine 25 MG TAB PO SCH ×2 (09:34→11:12)
--- NOTE | 2017-04-22 11:55 | P.PN ---
Progress Note - Text Progress Note Date: 04/22/17 Interval history: Patient seen in [facility] today for Dr. Garcia. Her Clozaril dose was held last night due to sedation. She says she's been feeling really tired and does relate feeling as though it is a side effect. Per staff she has been sleeping through some meals. She states that otherwise things are going fine. She does talk about discharge planning for Monday. Mental status exam: She is alert and cooperative with interview. Her affect is restricted. She describes her mood is fine. She denies any thoughts of harm to self others. She denies any hallucinations. She does not make any delusional statements. She does not show any agitation. Plan: We'll decrease the bedtime dose of Clozaril to 200 mg at bedtime. We will see if she is able to tolerate this dose better at this point in time. We' ll monitor her status to monitor for any medication side effects. We'll continue to cover this patient through the weekend.
[2017-04-22] MEDS ORDERED: cloZAPine 100 MG TAB PO SCH ×3 (21:00)
[2017-04-23] MEDS: cloZAPine 25 MG TAB PO SCH (09:03)
--- NOTE | 2017-04-23 14:39 | P.PN ---
Progress Note - Text Progress Note Date: 04/23/17 Interval history: Patient reports that she is able to wake up this morning go to breakfast, felt a little tired after morning Clozaril but seems to be much more tolerable now. She does talk about discharge planning for tomorrow. She is seen in [facility] again today. Mental status exam: She is alert and cooperative with the interview. Her speech is fluent, not rapid or pressured. Thought processes organized. Her mood seems to be pretty stable. She does not verbalize any thoughts of harm to self or others. She does not show active evidence of psychosis at this time. She does not show any agitation. Plan: We will re-titrate Clozaril to 250 mg at bedtime for tonight. Monitor for any side effects. Will try to re-titrate more towards her planned dose as she appears to be tolerating the Clozaril better at this point in time. We'll continue to cover this patient through the weekend.
[2017-04-23] MEDS ORDERED: cloZAPine 100 MG TAB PO SCH (21:00)
[2017-04-23] MEDS ORDERED: cloZAPine 25 MG TAB PO SCH (21:00)
[2017-04-24 04:46] LABS: Clozapine (Clozaril) 381 ng/mL (200-700); Norclozapine 141 ng/mL (200-700)
[2017-04-24 07:03] VITALS: BP 118/78; PULSE 95; RESP 16; TEMP 97.7
[2017-04-24] MEDS: cloZAPine 25 MG TAB PO SCH (08:10)
--- NOTE | 2017-04-24 21:04 | DS ---
DISCHARGE SUMMARY DATE OF SERVICE: 04/24/2017 DATE OF ADMISSION: 04/15/2017. DATE OF DISCHARGE: 04/24/2017 ADMISSION AND DISCHARGE DIAGNOSES: 1. Schizoaffective disorder. 2. Overdose. HISTORY OF PRESENTING ILLNESS: The patient is a 21-year-old female. She was admitted to ICU after reportedly taking about 22 tablets each of Lamictal 200 mg, Zyprexa 20 mg and Prozac 40 mg tablets. 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 There has also been consideration for possible Asperger's disorder. The patient had significant struggles in childhood with poor social function. She has had 8 past episodes of overdose. She has had placements in long-term residential programs. Neuropsych testing evaluations December 07, 2016, indicated normal intelligence with significant cognitive difficulties in specific areas of neurologic function, particularly involving decision-making. She has been on multiple psychotropic medications. Her current medications on admission included Prozac 60 mg a day, Zyprexa 25 mg a day and Lamictal 200 mg a day. She was initially admitted to ICU and was on a ventilator for obtundation. She cleared within a couple days and was stabilized medically prior to transfer to the psychiatric unit. She was admitted for further evaluation. It is noted in regards to her overdose that she presented to the emergency room on April 11 at 0400. She reportedly had taken 22 tablets of Prozac 40 mg a day. During her hospitalization on April 13, she received 60 mg of Prozac as her only dose of Prozac during her hospitalization. On April 14 at 0400 her Prozac level was 412/103. Those levels would be significantly below what would be expected based on the report of the amount of medicine she presumably ingested, and thus it is likely that at least with Prozac her amount that she overdosed on was significantly overstated MEDICAL HISTORY AND PHYSICAL EXAMINATION: As per medical consultation of Dr. Thakkar. MENTAL STATUS EXAMINATION: The patient gave good eye contact. Psychomotor activity was a little slowed. Speech was monotone. She answered questions with direct responses. Her thoughts were clear, her affect blunted, mood reserved. She did not appear to be significantly distressed. There was no indication of thought disorder. Cognition was clear. COURSE OF HOSPITALIZATION: Patient was admitted for comprehensive medical, psychiatric and psychosocial evaluation. We engaged the patient in individual and group therapeutic activities. I had an extensive discussion with the patient and her parents regarding her long-term history and current treatment issues. I recommended we start the patient on Clozaril, which has a specific indication for treatment-resistant schizophrenia for patients who failed to respond adequately to standard antipsychotic treatment and for reduction in risk of recurrent suicidal behavior in schizophrenia or schizoaffective disorder. She was off her psychotropic medications, including Lamictal, Zyprexa and Prozac during her ICU and medical floor admission. As such, she was not continued on those medications during her psychiatric hospitalization. She was started on Clozaril, which was titrated gradually up to a total of 300 mg a day. Overall the patient did fair during her hospitalization. She did have some tiredness, which was felt to be secondary to initiation of Clozaril. She initially was fairly withdrawn and spent quite a bit of time in her room. As her hospitalization progressed, she did come out more. She made some efforts at attending groups, though she really only attended groups sporadically. She generally maintained a calm mood and reserved manner throughout her hospitalization. We had family meetings with the patient and her parents to review treatment issues. The patient was able to cooperate productively in discharge planning. CONDITION AT DISCHARGE: Patient was stable. Her mood was improved. She was not exhibiting any issues of thought disorder. She voiced no thoughts of harm to self or others. She tolerated her Clozaril well. RECOMMENDATIONS AND FOLLOWUP: Patient is discharged to home. DISCHARGE MEDICATION: Clozaril 300 mg at bedtime as her only psychotropic medication. We reviewed Clozaril management issues with the patient and her parents. She has followup with Dr. Bustillo on April 26, 2017, at 2:00 p.m. and with [facility] on April 27, 2017, at 4:00 p.m. MMOCTAVIO / MARCELON: [id number] /
== END 2017-04-24 14:18 | disposition home or self-care (01) | DRG 885 ==
LOC: 3MHU 19:23
PROVIDERS: ADMIT Psychiatry & Neurology Psychiatry; ATTEND Psychiatry & Neurology Psychiatry
DX: F25.9 Schizoaffective disorder, unspecified (principal); F31.9 Bipolar disorder, unspecified; F60.3 Borderline personality disorder; T43.591A Poisoning by other antipsychotics and neuroleptics, accidental (unintentional), initial encounter; R53.83 Other fatigue; F43.10 Post-traumatic stress disorder, unspecified; Z91.5 Personal history of self-harm; Z79.899 Other long term (current) drug therapy
CPT/HCPCS: 80061; 80159; 83036; 84443; 85025

== ENCOUNTER → 2017-10-23 | Outpatient (CLI) | payer OTHER ==
[2017-10-23 16:35] LABS: ALT 72 U/L (9-52); AST 44 U/L (14-36)
== END | disposition home or self-care (01) ==
LOC: LABWHC1 15:31
PROVIDERS: ATTEND Psychiatry & Neurology Psychiatry
DX: F31.4 Bipolar disorder, current episode depressed, severe, without psychotic features (principal)
CPT/HCPCS: 36415; 84450; 84460

== ENCOUNTER → 2017-11-22 | Outpatient (CLI) | payer OTHER ==
--- NOTE | 2017-11-22 18:56 | US ---
EXAMINATION TYPE: US pelvis complete transvag plus Doppler DATE OF EXAM: 11/22/2017 COMPARISON: NONE CLINICAL HISTORY: 22-year-old female N93.8 abnormal bleeding,N92.0 regular cycle D25.9 Fibroid. TECHNIQUE: Transabdominal sonographic images of the pelvis were acquired. Transvaginal sonographic images were medically necessary to better assess the following anatomy: endometrium and ovaries. Col or Doppler and spectral waveform analysis of the ovarian arteries and veins. Long menstrual cycle for approximately 1.5 months and stopped with oral contraceptives 4 days ago; pr ior IUD removed 2014 Date of LMP: 10/02/2017 FINDINGS: EXAM MEASUREMENTS: Uterus: 7.9 x 4.2 x 2.8 cm Endometrial Stripe: 0.8 cm Right Ovary: 3.4 x 2.4 x 1.6 cm Left Ovary: 2.9 x 16 x 2.0 cm 1. Uterus: Anteverted; multiple small Nabothian cysts in cervix with largest = 0.4 x 0.3 x 0.3cm ; small amount of fluid in cervix canal = 1.8 x 0.9 x 0.3cm 2. Endometrium: unable to correlate thickness with 10/02/2017 LMP 3. Right Ovary: Follicles measuring up to 1.3 cm. 4. Left Ovary: small follicles Spectral, color and waveform Doppler imaging shows good arterial and venous flow within the ovaries ; there is no evidence for ovarian torsion. 5. Bilateral Adnexa: wnl 6. Posterior cul-de-sac: wnl IMPRESSION: 1. Small amount of fluid along the endocervical canal. 2. Endometrial stripe measuring 8 mm. 3. Dominant 1.3 cm follicle in the right ovary. 4. No sonographic evidence for ovarian torsion.
== END | disposition home or self-care (01) ==
LOC: RADUSWWP 15:00
PROVIDERS: ATTEND Family Medicine
DX: N93.8 Other specified abnormal uterine and vaginal bleeding (principal); N92.0 Excessive and frequent menstruation with regular cycle
CPT/HCPCS: 76830; 76856

== ENCOUNTER 2018-03-10 22:37 | Emergency (ER) | payer OTHER ==
[2018-03-11] MEDS ORDERED: SODIUM CHLORIDE 0.9% 2,000 ML IV ONE (00:01)
[2018-03-11] MEDS ORDERED: KETOROLAC 30 MG/ML 1 ML VIAL IVP STA (00:01)
--- NOTE | 2018-03-11 00:05 | ED ---
General Adult HPI - General Chief complaint: Recheck/Abnormal Lab/Rx Stated complaint: Nausea, Medication Reaction Time Seen by Provider: 03/10/18 23:52 Source: patient Mode of arrival: ambulatory Limitations: no limitations - History of Present Illness Initial comments: Patient is a 22-year-old female presents with the chief complaint of lightheadedness, or palpitations. Patient has a psychiatric history consistent with I [place], borderline personality disorder, and depression. She states that she ran out of her medications restarted them about a week and a half ago. She currently is taking Clozaril, Zoloft, and Elavil. Patient also reports headache today. Patient states that her symptoms are aggravated by positional changes such as lying down to standing up. She denies any fever, chills, nausea , vomiting, abdominal pain, dysuria, or change in her bowel habits. - Related Data Home Medications Medication Instructions Recorded Confirmed Amitriptyline HCl [Elavil] 75 mg PO HS 03/10/18 03/10/18 Dextroamphetamine/Amphetamine 5 mg PO DAILY PRN 03/10/18 03/10/18 [Adderall] RX: cloZAPine [Clozaril] 300 mg PO HS 03/10/18 03/10/18 Sertraline [Zoloft] 50 mg PO HS 03/10/18 03/10/18 Allergies Allergy/AdvReac Type Severity Reaction Status Date / Time amoxicillin Allergy Rash/Hives Verified 03/10/18 23:25 seasoning salt Allergy Mild Anaphylaxis Uncoded 03/10/18 23:12 Review of Systems ROS Statement: Those systems with pertinent positive or pertinent negative responses have been documented in the HPI. ROS Other: All systems not noted in ROS Statement are negative. Past Medical History Past Medical History: Asthma Additional Past Medical History / Comment(s): Codiene induced encephalapathy, PMDD-heavy menstrual bleeding with anemia, chronic low back pain, allergy to red seasonings-has epi pen. 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 Mother Family Medical History: Cancer Additional Family Medical History / Comment(s): Mother had endometrial polyp cancer with hysterectomy. General Exam Limitations: no limitations General appearance: alert, in no apparent distress Head exam: Present: atraumatic, normocephalic Eye exam: Present: normal appearance, PERRL, EOMI ENT exam: Present: normal exam Neck exam: Present: normal inspection Respiratory exam: Present: normal lung sounds bilaterally. Absent: respiratory distress, wheezes Cardiovascular Exam: Present: normal rhythm, tachycardia GI/Abdominal exam: Present: soft. Absent: distended, tenderness Rectal exam: Present: deferred Extremities exam: Present: normal inspection Back exam: Present: normal inspection Neurological exam: Present: alert, oriented X3 Psychiatric exam: Present: normal affect, normal mood Skin exam: Present: warm, dry, intact Course Vital Signs 03/10/18 03/11/18 03/11/18 23:08 00:20 01:09 Temperature 98.1 F Pulse Rate 110 H 99 106 H Respiratory 20 18 18 Rate Blood Pressure 109/70 99/79 119/82 O2 Sat by Pulse 99 98 99 Oximetry Medical Decision Making - Medical Decision Making Patient presents with a chief complaint of lightheadedness and heart palpitations. On initial evaluation, vital signs showed tachycardia but are otherwise unremarkable. EKG performed at 2342 shows a sinus tachycardia with a rate of 101 bpm. Segments. B within normal limits, there are no acute signs of ischemia. EKG performed on 04/11/2017 was reviewed and, at the time patient was showing tachycardia waveforms are similar. No acute changes. Patient will be given 2 L of IV fluid. We will check basic labs and liver profile as some of her medications can cause transaminitis or renal impairment. We'll also check a urinalysis and urine drug screen. 1:15 AM Evaluation of this patient is unremarkable, UDS and urinalysis is unremarkable. The patient is fluid responsive, her symptoms are improved, heart rate and blood pressure improved. She is ambulatory without assistance. Patient was given 1 mg of Ativan orally for anxiety. At this time, she is stable for discharge. Patient was instructed to follow up with primary Psychiatry in One to 2 Days, Return to the ED If Symptoms Worsen or Change. - Lab Data Result diagrams: 03/11/18 00:07 03/11/18 00:07 Lab Results 03/11/18 03/11/18 03/11/18 Range/Units 00:07 00:07 00:07 WBC 5.2 (3.8-10.6) k/uL RBC 4.51 (3.80-5.40) m/uL Hgb 12.0 (11.4-16.0) gm/dL Hct 38.9 (34.0-46.0) % MCV 86.1 (80.0-100.0) fL MCH 26.7 (25.0-35.0) pg MCHC 30.9 L (31.0-37.0) g/dL RDW 13.0 (11.5-15.5) % Plt Count 287 (150-450) k/uL Neutrophils % 62 % Lymphocytes % 29 % Monocytes % 6 % Eosinophils % 1 % Basophils % 0 % Neutrophils # 3.2 (1.3-7.7) k/uL Lymphocytes # 1.5 (1.0-4.8) k/uL Monocytes # 0.3 (0-1.0) k/uL Eosinophils # 0.0 (0-0.7) k/uL Basophils # 0.0 (0-0.2) k/uL Sodium 140 (137-145) mmol/L Potassium 4.1 (3.5-5.1) mmol/L Chloride 105 (98-107) mmol/L Carbon Dioxide 25 (22-30) mmol/L Anion Gap 10 mmol/L BUN 15 (7-17) mg/dL Creatinine 0.76 (0.52-1.04) mg/dL Est GFR (CKD-EPI)AfAm >90 (>60 ml/min/1.73 sqM) Est GFR (CKD-EPI)NonAf >90 (>60 ml/min/1.73 sqM) Glucose 95 (74-99) mg/dL Calcium 9.5 (8.4-10.2) mg/dL Total Bilirubin 0.3 (0.2-1.3) mg/dL AST 34 (14-36) U/L ALT 63 H (9-52) U/L Alkaline Phosphatase 88 (38-126) U/L Total Protein 7.4 (6.3-8.2) g/dL Albumin 4.3 (3.5-5.0) g/dL Urine Color Light Yellow Urine Appearance Cloudy H (Clear) Urine pH 7.0 (5.0-8.0) Ur Specific Accord 1.012 (1.001-1.035) Urine Protein Trace H (Negative) Urine Glucose (UA) Negative (Negative) Urine Ketones Negative (Negative) Urine Blood Negative (Negative) Urine Nitrite Negative (Negative) Urine Bilirubin Negative (Negative) Urine Urobilinogen <2.0 (<2.0) mg/dL Ur Leukocyte Esterase Large H (Negative) Urine RBC 1 (0-5) /hpf Urine WBC 2 (0-5) /hpf Ur Squamous Epith Cells 9 H (0-4) /hpf Urine Bacteria Many H (None) /hpf Urine Mucus Rare H (None) /hpf Urine Opiates Screen Not Detected (NotDetected) Ur Oxycodone Screen Not Detected (NotDetected) Urine Methadone Screen Not Detected (NotDetected) Ur Propoxyphene Screen Not Detected (NotDetected) Ur Barbiturates Screen Not Detected (NotDetected) U Tricyclic Antidepress Detected H (NotDetected) Ur Phencyclidine Scrn Not Detected (NotDetected) Ur Amphetamines Screen Not Detected (NotDetected) U Methamphetamines Scrn Not Detected (NotDetected) U Benzodiazepines Scrn Not Detected (NotDetected) Urine Cocaine Screen Not Detected (NotDetected) U Marijuana (THC) Screen Not Detected (NotDetected) Disposition Clinical Impression: Dehydration, Anxiety Disposition: HOME SELF-CARE Condition: Good Is patient prescribed a controlled substance at d/c from ED?: No Referrals: Shelia Mejia MD [Primary Care Provider] - 1-2 days
[2018-03-11 00:29] LABS: Appearance,Urine Cloudy (Clear); Bacteria,Urine Many /hpf; Basophils % (A) 0 %; Bilirubin,Urine Negative (Negative); Blood,Urine Negative (Negative); Color,Urine Light Yellow; Eosinophils % (A) 1 %; Glucose,Urine (UA) Negative (Negative); HCT 38.9 % (34.0-46.0); Ketones,Urine Negative (Negative); Leukocyte Esterase,Urine Large (Negative); Lymphocytes # (A) 1.5 k/uL (1.0-4.8); Lymphocytes % (A) 29 %; MCH 26.7 pg (25.0-35.0); MCHC 30.9 g/dL (31.0-37.0); MCV 86.1 fL (80.0-100.0); Mean Platelet Volume 7.1; Monocytes # (A) 0.3 k/uL (0-1.0); Monocytes % (A) 6 %; Mucus,Urine Rare /hpf; Neutrophils # (A) 3.2 k/uL (1.3-7.7); Neutrophils % (A) 62 %; Nitrite,Urine Negative (Negative); Platelet Count 287 k/uL (150-450); Protein,Urine Trace (Negative); RBC 4.51 m/uL (3.80-5.40); RBC,Urine 1 /hpf (0-5); Specific Gravity,Urine 1.012 (1.001-1.035); Squamous Epithelial Cell,Urine 9 /hpf (0-4); Urobilinogen,Urine <2.0 mg/dL (<2.0); WBC 5.2 k/uL (3.8-10.6); WBC,Urine 2 /hpf (0-5)
[2018-03-11 00:36] LABS: Amphetamine Screen,Urine Not Detected (NotDetected); Barbiturate Screen,Urine Not Detected (NotDetected); Benzodiazepines Screen,Urine Not Detected (NotDetected); Cocaine Screen,Urine Not Detected (NotDetected); Methadone Screen, Urine Not Detected (NotDetected); Opiate Screen,Urine Not Detected (NotDetected); Oxycodone Screen, Urine Not Detected (NotDetected); Phencyclidine Screen,Urine Not Detected (NotDetected); Tricyclic Antidepressant,Urine Detected (NotDetected); Urn Cannabinoid Scrn Not Detected (NotDetected)
[2018-03-11 00:42] LABS: ALT 63 U/L (9-52); AST 34 U/L (14-36); Albumin 4.3 g/dL (3.5-5.0); Alkaline Phosphatase 88 U/L (38-126); Anion Gap 10 mmol/L; Blood Urea Nitrogen 15 mg/dL (7-17); Calcium 9.5 mg/dL (8.4-10.2); Carbon Dioxide 25 mmol/L (22-30); Chloride 105 mmol/L (98-107); Glucose 95 mg/dL (74-99); Potassium 4.1 mmol/L (3.5-5.1); Sodium 140 mmol/L (137-145); Total Bilirubin 0.3 mg/dL (0.2-1.3); Total Protein 7.4 g/dL (6.3-8.2)
[2018-03-11] MEDS ORDERED: LORazepam 1 MG TAB PO STA (00:54)
[2018-03-11 01:10] VITALS: BP 119/82; PULSE 106
[2018-03-11 01:23] VITALS: RESP 17; TEMP 97.7
== END 2018-03-11 01:19 | disposition home or self-care (01) ==
LOC: EC 22:37
DX: E86.0 Dehydration (principal); F41.9 Anxiety disorder, unspecified; R00.0 Tachycardia, unspecified; R00.2 Palpitations; F60.3 Borderline personality disorder; F31.9 Bipolar disorder, unspecified; F17.200 Nicotine dependence, unspecified, uncomplicated; Z88.0 Allergy status to penicillin; Z91.02 Food additives allergy status; Z79.899 Other long term (current) drug therapy
CPT/HCPCS: 36415; 93005; 80053; 85025; 81001; 80306; 99283; 96374; 96361; J1885

== ENCOUNTER 2018-06-15 15:10 | Emergency (ER) | payer OTHER ==
[2018-06-15] MEDS ORDERED: SODIUM CHLORIDE 0.9% 1,000 ML IV STA (15:35)
[2018-06-15] MEDS ORDERED: SODIUM CHLORIDE 0.9% 1,000 ML IV ONE (15:43)
--- NOTE | 2018-06-15 15:47 | ED ---
General Adult HPI - General Chief complaint: Arrhythmia/Palpitations Stated complaint: Med reaction, dizzy Time Seen by Provider: 06/15/18 15:35 Source: patient, RN notes reviewed, old records reviewed Mode of arrival: ambulatory Limitations: no limitations - History of Present Illness Initial comments: 22-year-old female history of bipolar depression presents for evaluation of tachycardia, chest pain, dyspnea. Patient's symptoms began on Monday. Patient had been off her closet pain for approximately one week. She was reinitiated on this medication on Monday initially patient states she slept for approximately 30 hours with minimal oral intake. Over the course of the next 24 hours she developed palpitations, she did develop some mild chest discomfort and pain as well as some mild dyspnea. Patient denies fever or chills. Denies abdominal pain. Denies nausea vomiting. She has not had this issue with this medication the past although believes it is related to her symptoms today. No lower extremity pain or swelling. - Related Data Home Medications Medication Instructions Recorded Confirmed Sertraline [Zoloft] 50 mg PO HS 03/10/18 06/15/18 cloZAPine [Clozaril] 300 mg PO HS 03/10/18 06/15/18 traZODone HCL 50 - 100 mg PO HS 06/15/18 06/15/18 Allergies Allergy/AdvReac Type Severity Reaction Status Date / Time amoxicillin Allergy Rash/Hives Verified 06/15/18 16:05 Review of Systems ROS Statement: Those systems with pertinent positive or pertinent negative responses have been documented in the HPI. ROS Other: All systems not noted in ROS Statement are negative. Past Medical History Past Medical History: Asthma Additional Past Medical History / Comment(s): Codiene induced encephalapathy, PMDD-heavy menstrual bleeding with anemia, chronic low back pain, allergy to red seasonings-has epi pen. 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 Mother Family Medical History: Cancer Additional Family Medical History / Comment(s): Mother had endometrial polyp cancer with hysterectomy. General Exam Limitations: no limitations General appearance: alert, in no apparent distress Head exam: Present: atraumatic, normocephalic Eye exam: Present: normal appearance, PERRL ENT exam: Present: mucous membranes dry Neck exam: Present: normal inspection. Absent: tenderness, meningismus Respiratory exam: Present: normal lung sounds bilaterally. Absent: respiratory distress, wheezes Cardiovascular Exam: Present: normal rhythm, tachycardia GI/Abdominal exam: Present: soft. Absent: distended, tenderness, guarding, rebound Extremities exam: Present: normal inspection, normal capillary refill. Absent: pedal edema, calf tenderness Neurological exam: Present: alert, oriented X3, CN II-XII intact. Absent: motor sensory deficit Psychiatric exam: Present: normal affect, normal mood Skin exam: Present: warm, dry, intact. Absent: cyanosis, diaphoretic Course Vital Signs 06/15/18 06/15/18 15:16 17:00 Temperature 98.1 F Pulse Rate 116 H 94 Respiratory 16 18 Rate Blood Pressure 116/76 113/79 O2 Sat by Pulse 98 98 Oximetry EKG Findings - EKG Comments: EKG Findings:: EKG: Sinus tachycardia, no ST segment elevation or depression. Rate of 111, W[place] interval 158, QRS duration 88, QTC 465 Medical Decision Making - Medical Decision Making 22-year-old female presenting with palpitations, mild chest discomfort. Patient well-appearing, only abnormal vital sinus tachycardia on initial evaluation. Workup in the emergency department reveals EKG was sinus tachycardia, no other acute findings. Symptoms have been present for 2 days. Patient has normal CBC, she does have a CO2 of 17 with mild anion gap acidosis at 16. Blood sugar 166. After IV hydration, CO2 improved, anion gap has normalized at 12 blood sugar is 91. Urinalysis does show 4+ ketones, and hematuria. Patient is currently on her menstrual cycle. Patient reevaluated, vital signs improved with 2 L of IV hydration. No longer complaining of any pain. No dyspnea. Palpitations resolved. Patient will continue oral hydration at home. She will follow-up with her primary care physician regarding current medications. - Lab Data Result diagrams: 06/15/18 15:55 06/15/18 18:02 Lab Results 03/29/19 03/29/19 03/29/19 Range/Units 15:55 15:55 15:55 WBC 6.7 (3.8-10.6) k/uL RBC 4.81 (3.80-5.40) m/uL Hgb 12.4 (11.4-16.0) gm/dL Hct 39.2 (34.0-46.0) % MCV 81.7 (80.0-100.0) fL MCH 25.9 (25.0-35.0) pg MCHC 31.7 (31.0-37.0) g/dL RDW 15.0 (11.5-15.5) % Plt Count 233 (150-450) k/uL Neutrophils % 88 % Lymphocytes % 8 % Monocytes % 4 % Eosinophils % 1 % Basophils % 0 % Neutrophils # 5.9 (1.3-7.7) k/uL Lymphocytes # 0.5 L (1.0-4.8) k/uL Monocytes # 0.2 (0-1.0) k/uL Eosinophils # 0.0 (0-0.7) k/uL Basophils # 0.0 (0-0.2) k/uL PT 11.3 (9.0-12.0) sec INR 1.1 (<1.2) APTT 26.6 (22.0-30.0) sec D-Dimer 0.25 (<0.60) mg/L FEU Sodium 138 (137-145) mmol/L Potassium 4.0 (3.5-5.1) mmol/L Chloride 105 (98-107) mmol/L Carbon Dioxide 17 L (22-30) mmol/L Anion Gap 16 mmol/L BUN 14 (7-17) mg/dL Creatinine 0.74 (0.52-1.04) mg/dL Est GFR (CKD-EPI)AfAm >90 (>60 ml/min/1.73 sqM) Est GFR (CKD-EPI)NonAf >90 (>60 ml/min/1.73 sqM) Glucose 166 H (74-99) mg/dL Calcium 9.6 (8.4-10.2) mg/dL Magnesium 1.7 (1.6-2.3) mg/dL Total Bilirubin 0.6 (0.2-1.3) mg/dL AST 23 (14-36) U/L ALT 38 (9-52) U/L Alkaline Phosphatase 97 (38-126) U/L Troponin I (0.000-0.034) ng/mL Total Protein 7.4 (6.3-8.2) g/dL Albumin 4.5 (3.5-5.0) g/dL TSH 0.607 (0.465-4.680) mIU/L Urine Color Urine Appearance (Clear) Urine pH (5.0-8.0) Ur Specific [place] (1.001-1.035) Urine Protein (Negative) Urine Glucose (UA) (Negative) Urine Ketones (Negative) Urine Blood (Negative) Urine Nitrite (Negative) Urine Bilirubin (Negative) Urine Urobilinogen (<2.0) mg/dL Ur Leukocyte Esterase (Negative) Urine RBC (0-5) /hpf Urine WBC (0-5) /hpf Ur Squamous Epith Cells (0-4) /hpf Urine Bacteria (None) /hpf Hyaline Casts (0-2) /lpf Urine Mucus (None) /hpf Urine HCG, Qual (Not Detectd) Urine Opiates Screen (NotDetected) Ur Oxycodone Screen (NotDetected) Urine Methadone Screen (NotDetected) Ur Propoxyphene Screen (NotDetected) Ur Barbiturates Screen (NotDetected) U Tricyclic Antidepress (NotDetected) Ur Phencyclidine Scrn (NotDetected) Ur Amphetamines Screen (NotDetected) U Methamphetamines Scrn (NotDetected) U Benzodiazepines Scrn (NotDetected) Urine Cocaine Screen (NotDetected) U Marijuana (THC) Screen (NotDetected) 06/15/18 06/15/18 06/15/18 Range/Units 15:55 16:04 16:04 WBC (3.8-10.6) k/uL RBC (3.80-5.40) m/uL Hgb (11.4-16.0) gm/dL Hct (34.0-46.0) % MCV (80.0-100.0) fL MCH (25.0-35.0) pg MCHC (31.0-37.0) g/dL RDW (11.5-15.5) % Plt Count (150-450) k/uL Neutrophils % % Lymphocytes % % Monocytes % % Eosinophils % % Basophils % % Neutrophils # (1.3-7.7) k/uL Lymphocytes # (1.0-4.8) k/uL Monocytes # (0-1.0) k/uL Eosinophils # (0-0.7) k/uL Basophils # (0-0.2) k/uL PT (9.0-12.0) sec INR (<1.2) APTT (22.0-30.0) sec D-Dimer (<0.60) mg/L FEU Sodium (137-145) mmol/L Potassium (3.5-5.1) mmol/L Chloride (98-107) mmol/L Carbon Dioxide (22-30) mmol/L Anion Gap mmol/L BUN (7-17) mg/dL Creatinine (0.52-1.04) mg/dL Est GFR (CKD-EPI)AfAm (>60 ml/min/1.73 sqM) Est GFR (CKD-EPI)NonAf (>60 ml/min/1.73 sqM) Glucose (74-99) mg/dL Calcium (8.4-10.2) mg/dL Magnesium (1.6-2.3) mg/dL Total Bilirubin (0.2-1.3) mg/dL AST (14-36) U/L ALT (9-52) U/L Alkaline Phosphatase (38-126) U/L Troponin I <0.012 (0.000-0.034) ng/mL Total Protein (6.3-8.2) g/dL Albumin (3.5-5.0) g/dL TSH (0.465-4.680) mIU/L Urine Color Yellow Urine Appearance Cloudy H (Clear) Urine pH 5.5 (5.0-8.0) Ur Specific [place] 1.028 (1.001-1.035) Urine Protein 1+ H (Negative) Urine Glucose (UA) Negative (Negative) Urine Ketones 4+ H (Negative) Urine Blood Large H (Negative) Urine Nitrite Negative (Negative) Urine Bilirubin Negative (Negative) Urine Urobilinogen <2.0 (<2.0) mg/dL Ur Leukocyte Esterase Negative (Negative) Urine RBC >182 H (0-5) /hpf Urine WBC 4 (0-5) /hpf Ur Squamous Epith Cells 8 H (0-4) /hpf Urine Bacteria Occasional H (None) /hpf Hyaline Casts 3 H (0-2) /lpf Urine Mucus Rare H (None) /hpf Urine HCG, Qual Not Detected (Not Detectd) Urine Opiates Screen Not Detected (NotDetected) Ur Oxycodone Screen Not Detected (NotDetected) Urine Methadone Screen Not Detected (NotDetected) Ur Propoxyphene Screen Not Detected (NotDetected) Ur Barbiturates Screen Not Detected (NotDetected) U Tricyclic Antidepress Detected H (NotDetected) Ur Phencyclidine Scrn Not Detected (NotDetected) Ur Amphetamines Screen Not Detected (NotDetected) U Methamphetamines Scrn Not Detected (NotDetected) U Benzodiazepines Scrn Not Detected (NotDetected) Urine Cocaine Screen Not Detected (NotDetected) U Marijuana (THC) Screen Not Detected (NotDetected) 06/15/18 Range/Units 18:02 WBC (3.8-10.6) k/uL RBC (3.80-5.40) m/uL Hgb (11.4-16.0) gm/dL Hct (34.0-46.0) % MCV (80.0-100.0) fL MCH (25.0-35.0) pg MCHC (31.0-37.0) g/dL RDW (11.5-15.5) % Plt Count (150-450) k/uL Neutrophils % % Lymphocytes % % Monocytes % % Eosinophils % % Basophils % % Neutrophils # (1.3-7.7) k/uL Lymphocytes # (1.0-4.8) k/uL Monocytes # (0-1.0) k/uL Eosinophils # (0-0.7) k/uL Basophils # (0-0.2) k/uL PT (9.0-12.0) sec INR (<1.2) APTT (22.0-30.0) sec D-Dimer (<0.60) mg/L FEU Sodium 140 (137-145) mmol/L Potassium 4.0 (3.5-5.1) mmol/L Chloride 109 H (98-107) mmol/L Carbon Dioxide 19 L (22-30) mmol/L Anion Gap 12 mmol/L BUN 11 (7-17) mg/dL Creatinine 0.67 (0.52-1.04) mg/dL Est GFR (CKD-EPI)AfAm >90 (>60 ml/min/1.73 sqM) Est GFR (CKD-EPI)NonAf >90 (>60 ml/min/1.73 sqM) Glucose 91 (74-99) mg/dL Calcium 8.5 (8.4-10.2) mg/dL Magnesium (1.6-2.3) mg/dL Total Bilirubin 0.4 (0.2-1.3) mg/dL AST 20 (14-36) U/L ALT 30 (9-52) U/L Alkaline Phosphatase 84 (38-126) U/L Troponin I (0.000-0.034) ng/mL Total Protein 6.5 (6.3-8.2) g/dL Albumin 3.8 (3.5-5.0) g/dL TSH (0.465-4.680) mIU/L Urine Color Urine Appearance (Clear) Urine pH (5.0-8.0) Ur Specific [place] (1.001-1.035) Urine Protein (Negative) Urine Glucose (UA) (Negative) Urine Ketones (Negative) Urine Blood (Negative) Urine Nitrite (Negative) Urine Bilirubin (Negative) Urine Urobilinogen (<2.0) mg/dL Ur Leukocyte Esterase (Negative) Urine RBC (0-5) /hpf Urine WBC (0-5) /hpf Ur Squamous Epith Cells (0-4) /hpf Urine Bacteria (None) /hpf Hyaline Casts (0-2) /lpf Urine Mucus (None) /hpf Urine HCG, Qual (Not Detectd) Urine Opiates Screen (NotDetected) Ur Oxycodone Screen (NotDetected) Urine Methadone Screen (NotDetected) Ur Propoxyphene Screen (NotDetected) Ur Barbiturates Screen (NotDetected) U Tricyclic Antidepress (NotDetected) Ur Phencyclidine Scrn (NotDetected) Ur Amphetamines Screen (NotDetected) U Methamphetamines Scrn (NotDetected) U Benzodiazepines Scrn (NotDetected) Urine Cocaine Screen (NotDetected) U Marijuana (THC) Screen (NotDetected) Disposition Clinical Impression: Palpitations, Dehydration Disposition: HOME SELF-CARE Condition: Stable Instructions (If sedation given, give patient instructions): Heart Palpitations (ED), Dehydration (ED) Is patient prescribed a controlled substance at d/c from ED?: No Referrals: Shelia Mejia MD [Primary Care Provider] - 1-2 days Time of Disposition: 18:48
[2018-06-15 16:05] LABS: Basophils % (A) 0 %; Eosinophils % (A) 1 %; HCT 39.2 % (34.0-46.0); HGB 12.4 gm/dL (11.4-16.0); Lymphocytes # (A) 0.5 k/uL (1.0-4.8); Lymphocytes % (A) 8 %; MCH 25.9 pg (25.0-35.0); MCHC 31.7 g/dL (31.0-37.0); MCV 81.7 fL (80.0-100.0); Mean Platelet Volume 7.6; Monocytes # (A) 0.2 k/uL (0-1.0); Monocytes % (A) 4 %; Neutrophils # (A) 5.9 k/uL (1.3-7.7); Neutrophils % (A) 88 %; Platelet Count 233 k/uL (150-450); RBC 4.81 m/uL (3.80-5.40); WBC 6.7 k/uL (3.8-10.6)
[2018-06-15 16:15] LABS: D-Dimer 0.25 mg/L FEU (<0.60); INR 1.1 (<1.2); Partial Thromboplastin Time 26.6 sec (22.0-30.0); Prothrombin Time 11.3 sec (9.0-12.0)
[2018-06-15 16:17] LABS: Appearance,Urine Cloudy (Clear); Bacteria,Urine Occasional /hpf; Bilirubin,Urine Negative (Negative); Blood,Urine Large (Negative); Color,Urine Yellow; Glucose,Urine (UA) Negative (Negative); Hyaline Casts,Urine 3 /lpf (0-2); Ketones,Urine 4+ (Negative); Leukocyte Esterase,Urine Negative (Negative); Mucus,Urine Rare /hpf; Nitrite,Urine Negative (Negative); PH, Urine 5.5 (5.0-8.0); Protein,Urine 1+ (Negative); RBC,Urine >182 /hpf (0-5); Specific Gravity,Urine 1.028 (1.001-1.035); Squamous Epithelial Cell,Urine 8 /hpf (0-4); Urobilinogen,Urine <2.0 mg/dL (<2.0); WBC,Urine 4 /hpf (0-5)
[2018-06-15 16:22] LABS: ALT 38 U/L (9-52); AST 23 U/L (14-36); Albumin 4.5 g/dL (3.5-5.0); Alkaline Phosphatase 97 U/L (38-126); Anion Gap 16 mmol/L; Blood Urea Nitrogen 14 mg/dL (7-17); Calcium 9.6 mg/dL (8.4-10.2); Carbon Dioxide 17 mmol/L (22-30); Chloride 105 mmol/L (98-107); Glucose 166 mg/dL (74-99); Magnesium 1.7 mg/dL (1.6-2.3); Sodium 138 mmol/L (137-145); Total Bilirubin 0.6 mg/dL (0.2-1.3); Total Protein 7.4 g/dL (6.3-8.2)
[2018-06-15 16:26] LABS: Amphetamine Screen,Urine Not Detected (NotDetected); Barbiturate Screen,Urine Not Detected (NotDetected); Benzodiazepines Screen,Urine Not Detected (NotDetected); Cocaine Screen,Urine Not Detected (NotDetected); Methadone Screen, Urine Not Detected (NotDetected); Opiate Screen,Urine Not Detected (NotDetected); Oxycodone Screen, Urine Not Detected (NotDetected); Phencyclidine Screen,Urine Not Detected (NotDetected); Tricyclic Antidepressant,Urine Detected (NotDetected); Urn Cannabinoid Scrn Not Detected (NotDetected)
--- NOTE | 2018-06-15 16:31 | XR ---
EXAMINATION TYPE: XR chest 2V DATE OF EXAM: 06/15/2018 COMPARISON: Chest x-ray April 15, 2017. HISTORY: Dysrhythmia. TECHNIQUE: Frontal and lateral views of the chest are obtained. FINDINGS: Improved inspiration on current study. There is no focal air space opacity, pleural effusio n, or pneumothorax seen. The cardiac silhouette size is within normal limits. The osseous structur es are intact. IMPRESSION: No acute cardiopulmonary process.
[2018-06-15 18:28] LABS: ALT 30 U/L (9-52); AST 20 U/L (14-36); Albumin 3.8 g/dL (3.5-5.0); Alkaline Phosphatase 84 U/L (38-126); Anion Gap 12 mmol/L; Blood Urea Nitrogen 11 mg/dL (7-17); Calcium 8.5 mg/dL (8.4-10.2); Carbon Dioxide 19 mmol/L (22-30); Chloride 109 mmol/L (98-107); Glucose 91 mg/dL (74-99); Sodium 140 mmol/L (137-145); Total Bilirubin 0.4 mg/dL (0.2-1.3); Total Protein 6.5 g/dL (6.3-8.2)
[2018-06-15 19:01] VITALS: BP 122/82; PULSE 112; RESP 14; TEMP 99.2
== END 2018-06-15 19:04 | disposition home or self-care (01) ==
LOC: EC 15:10
DX: E86.0 Dehydration (principal); R00.2 Palpitations; R07.89 Other chest pain; R06.09 Other forms of dyspnea; F31.9 Bipolar disorder, unspecified; F41.9 Anxiety disorder, unspecified; F17.200 Nicotine dependence, unspecified, uncomplicated; F60.3 Borderline personality disorder; Z79.899 Other long term (current) drug therapy; Z88.0 Allergy status to penicillin
CPT/HCPCS: 36415; 71046; 80053; 80306; 81001; 81025; 83735; 84443; 84484; 85025; 85379; 85610; 85730; 93005; 96360; 96361; 99285

== ENCOUNTER 2018-06-17 17:52 | Inpatient (IN) | payer OTHER ==
[2018-06-17] MEDS ORDERED: SODIUM CHLORIDE 0.9% 1,000 ML IV STA (18:46)
--- NOTE | 2018-06-17 19:01 | ED ---
Chest Pain HPI - General Chief Complaint: Chest Pain Stated Complaint: Syncope Time Seen by Provider: 06/17/18 18:30 Source: patient Mode of arrival: ambulatory Limitations: no limitations - History of Present Illness Initial Comments: 22-year-old female patient presents to the emergency department today for evaluation after experiencing a syncopal episode. Patient states approximately an hour ago she was standing in the kitchen when her head started to feel hot, her vision started to go black, next thing she knew she woke up on the floor. Patient states that she was seen and evaluated here on Monday for chest pain and palpitations. Patient states she did have a workup was found to be dehydrated and discharged home. Patient states she has been having intermittent chest pain and palpitations since being discharged. Patient states the pain in her chest feels like someone punched her in the sternum. States it takes her breath away. She states she has been dizzy. States she's been having worse headaches than usual. Denies any blurred or double vision. Denies any new numbness or tingling to her extremities. Patient states she did recently start taking clozaril on Monday and symptoms started approximately two days after beginning the medication. She is unsure if this is related. Patient denies any recent rash, fever, chills, abdominal pain, nausea, vomiting, diarrhea, constipation, back pain, hematuria, dysuria, urinary urgency, urinary frequency, or any other complaints. - Related Data Home Medications Medication Instructions Recorded Confirmed Sertraline [Zoloft] 50 mg PO HS 03/10/18 06/15/18 cloZAPine [Clozaril] 300 mg PO HS 03/10/18 06/15/18 traZODone HCL 50 - 100 mg PO HS 06/15/18 06/15/18 Allergies Allergy/AdvReac Type Severity Reaction Status Date / Time amoxicillin Allergy Rash/Hives Verified 06/15/18 16:05 Review of Systems ROS Statement: Those systems with pertinent positive or pertinent negative responses have been documented in the HPI. ROS Other: All systems not noted in ROS Statement are negative. EKG Findings - EKG Comments: EKG Findings:: EKG obtained in 1920 shows normal sinus rhythm with a prolonged QT interval, ventricular rate 98, SD interval 140, QRS duration 82, QT 382, QTc 487. No evidence of ST elevation or depression. Past Medical History Past Medical History: Asthma Additional Past Medical History / Comment(s): Codiene induced encephalapathy, PMDD-heavy menstrual bleeding with anemia, chronic low back pain, allergy to red seasonings-has epi pen. 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 Mother Family Medical History: Cancer Additional Family Medical History / Comment(s): Mother had endometrial polyp cancer with hysterectomy. General Exam Limitations: no limitations General appearance: alert, in no apparent distress, other (Physical well- developed, well-nourished adult female patient in no acute distress. Vital signs upon presentation are temperature 98.8F, pulse 106, respirations 18, blood pressure 103/67, pulse ox 100% on room air.) Eye exam: Present: normal appearance, PERRL, EOMI. Absent: scleral icterus, conjunctival injection, nystagmus, periorbital swelling ENT exam: Present: normal exam, normal oropharynx, mucous membranes moist Neck exam: Present: normal inspection. Absent: tenderness, meningismus, lymphadenopathy Respiratory exam: Present: normal lung sounds bilaterally. Absent: respiratory distress, wheezes, rales, rhonchi, stridor Cardiovascular Exam: Present: regular rate, normal rhythm, normal heart sounds. Absent: systolic murmur, diastolic murmur, rubs, gallop, clicks GI/Abdominal exam: Present: soft, normal bowel sounds. Absent: distended, tenderness, guarding, rebound, rigid Neurological exam: Present: alert, oriented X3, CN II-XII intact, other (Strength in all 4 extremities is 5/5.) Psychiatric exam: Present: normal affect, normal mood Skin exam: Present: warm, dry, intact, normal color. Absent: rash Course Vital Signs 06/17/18 06/17/18 06/17/18 18:25 19:30 20:00 Temperature 98.8 F Pulse Rate 106 H 103 H 99 Respiratory 18 16 Rate Blood Pressure 103/67 110/75 O2 Sat by Pulse 100 96 Oximetry 06/17/18 20:30 Temperature Pulse Rate 98 Respiratory 16 Rate Blood Pressure 114/91 O2 Sat by Pulse 97 Oximetry Chest Pain MDM - MDM 22-year-old female patient percents to the emergency department today for evaluation of palpitations, chest pain, and did have syncopal episode today about an hour prior to arrival. Physical examination upon arrival was unremarkable. She is neurologically intact with no focal deficits. EKG showed normal sinus rhythm with a prolonged QT interval. Labs reviewed and showed a low magnesium level but otherwise were unremarkable. Patient is not . Patient did restart her Clozaril after being off this medication for approximately 9 days. Patient's second visit in the last couple of days for similar type symptoms. We will admit to observation for echocardiogram and telemetry monitoring. She'll be admitted to Dr. Rhodes. RADIOLOGY:Two-view x-ray of the chest is obtained. Report was reviewed in its entirety. Impression by Dr. Joe shows normal chest with no change Disposition Clinical Impression: Syncope, Chest pain, Hypomagnesemia, Palpitations Disposition: ADMITTED IP TO THIS HOSP Condition: Serious Referrals: Shelia Mejia MD [Primary Care Provider] - 1-2 days Decision to Admit Reason: Admit from EC Decision Date: 06/17/18 Decision Time: 20:45
[2018-06-17 19:54] LABS: Basophils % (A) 0 %; Eosinophils # (A) 0.1 k/uL (0-0.7); Eosinophils % (A) 1 %; HCT 38.4 % (34.0-46.0); HGB 12.5 gm/dL (11.4-16.0); Lymphocytes # (A) 0.7 k/uL (1.0-4.8); Lymphocytes % (A) 6 %; MCH 26.4 pg (25.0-35.0); MCHC 32.6 g/dL (31.0-37.0); MCV 81.1 fL (80.0-100.0); Mean Platelet Volume 7.8; Monocytes # (A) 0.6 k/uL (0-1.0); Monocytes % (A) 5 %; Neutrophils # (A) 10.3 k/uL (1.3-7.7); Neutrophils % (A) 87 %; Platelet Count 274 k/uL (150-450); RBC 4.73 m/uL (3.80-5.40); RDW 15.8 % (11.5-15.5); WBC 11.8 k/uL (3.8-10.6)
[2018-06-17 20:06] LABS: ALT 39 U/L (9-52); AST 31 U/L (14-36); Albumin 4.3 g/dL (3.5-5.0); Alkaline Phosphatase 79 U/L (38-126); Anion Gap 9 mmol/L; Blood Urea Nitrogen 12 mg/dL (7-17); Calcium 10.8 mg/dL (8.4-10.2); Carbon Dioxide 27 mmol/L (22-30); Chloride 104 mmol/L (98-107); Glucose 75 mg/dL (74-99); Magnesium 1.2 mg/dL (1.6-2.3); Potassium 3.9 mmol/L (3.5-5.1); Sodium 140 mmol/L (137-145); Total Bilirubin 0.3 mg/dL (0.2-1.3); Total Protein 7.3 g/dL (6.3-8.2)
--- NOTE | 2018-06-17 20:08 | XR ---
EXAMINATION TYPE: XR chest 2V DATE OF EXAM: 06/17/2018 COMPARISON: 06/15/2018 HISTORY: Syncope. Chest pain TECHNIQUE: Frontal and lateral views of the chest are obtained. FINDINGS: Heart and mediastinum are normal. Lungs are clear of infiltrate. There is no pleural effus ion. There are chest leads. Bony thorax is intact. IMPRESSION: Normal chest. No change.
[2018-06-17 20:17] LABS: D-Dimer 0.33 mg/L FEU (<0.60); Partial Thromboplastin Time 25.3 sec (22.0-30.0); Prothrombin Time 10.7 sec (9.0-12.0)
[2018-06-17 20:26] LABS: Appearance,Urine Cloudy (Clear); Bilirubin,Urine Negative (Negative); Blood,Urine Large (Negative); Color,Urine Red; Glucose,Urine (UA) Negative (Negative); Ketones,Urine Negative (Negative); Leukocyte Esterase,Urine Small (Negative); Mucus,Urine Moderate /hpf; Nitrite,Urine Negative (Negative); Protein,Urine 1+ (Negative); RBC,Urine >182 /hpf (0-5); Specific Gravity,Urine 1.021 (1.001-1.035); Squamous Epithelial Cell,Urine 5 /hpf (0-4); Urobilinogen,Urine <2.0 mg/dL (<2.0)
[2018-06-17] MEDS ORDERED: NALOXONE 0.4 MG/ML 1 ML VIAL IV PRN (20:43)
[2018-06-17] MEDS ORDERED: SODIUM CHLORIDE 0.9% 1,000 ML IV SCH (20:45)
[2018-06-17] MEDS: MAGNESIUM SULFATE-D5W PMX 1 GM in DEXTROSE/WATER 1 100ML.BAG IVPB SCH (23:32)
[2018-06-18] MEDS: MAGNESIUM SULFATE-D5W PMX 1 GM in DEXTROSE/WATER 1 100ML.BAG IVPB SCH (02:09)
[2018-06-18 04:06] VITALS: BMI 35.3
--- NOTE | 2018-06-18 06:36 | P.HPIM ---
History of Present Illness H&P Date: 06/17/18 Chief Complaint: syncope 22 year old female with no significant past medical history Patient presented to the hospital for evaluation after experiencing what seems like a vasovagal attack followed by syncope. Patient was at her home in the kitchen when she blacked out and woke up on the floor, she felt warm and her vision blacked out and was associated with palpitations. She was recently evaluated in the ER and treated for dehydration was discharged home. Since then she reports off and on chest pain and palpitations associated with shortness of breath and dizziness. pain is 5/10 in severity , tight , central non radiating. wores with moving her arms and deep breaths. Patient otherwise denies any fevers or chills denies any coughing denies any abdominal pain nausea or vomiting denies any focal neurologic deficits. She reports that she was recently restarted on antipsychotic since which her symptoms started.however she has been taking same meds for years, and just stopped taking it for 10 days awaiting a refil . In the ED EKG showed normal sinus rhythm with prolonged QT interval, and hypomagnesemia Review of Systems Pertinent positives as noted in HPI. All other systems were reviewed and are negative Past Medical History Past Medical History: Asthma Additional Past Medical History / Comment(s): Codiene induced encephalapathy, PMDD-heavy menstrual bleeding with anemia, chronic low back pain, allergy to red seasonings-has epi pen. 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 She is fairly independent. She just recently went back to [facility] with [facility]. She has had previous suicide attempts with overdosing. Smoking Status: Former smoker Past Alcohol Use History: Occasional Additional Past Alcohol Use History / Comment(s): Pt started smoking about age 16 yrs. Mother states she will occasionally binge drink-last drank about 1 week ago. Does not drink on a regular basis. Past Drug Use History: None Reported - Past Family History Father Family Medical History: Cancer Additional Family Medical History / Comment(s): Father had thyroid cancer with surgery and radioactive iodine. Mother Family Medical History: Cancer Additional Family Medical History / Comment(s): Mother had endometrial polyp cancer with hysterectomy. Medications and Allergies Home Medications Medication Instructions Recorded Confirmed Type Sertraline [Zoloft] 50 mg PO HS 03/10/18 06/17/18 History cloZAPine [Clozaril] 300 mg PO HS 03/10/18 06/17/18 History traZODone HCL 50 - 100 mg PO HS 06/15/18 06/17/18 History Ibuprofen [Motrin Ib] 800 mg PO Q6H 06/17/18 06/17/18 History Allergies Allergy/AdvReac Type Severity Reaction Status Date / Time amoxicillin Allergy Rash/Hives Verified 06/17/18 21:06 Physical Exam Vitals: Vital Signs Temp Pulse Pulse Resp BP BP Pulse Ox 06/18/18 04:32 97.7 F 85 18 108/63 96 06/18/18 03:58 97.7 F 85 18 108/63 96 06/18/18 03:42 97.7 F 74 18 138/88 97 06/18/18 02:12 92 16 121/76 95 06/17/18 23:00 78 16 121/82 100 06/17/18 22:30 94 107/77 96 06/17/18 22:00 90 106/74 97 06/17/18 21:30 105 H 106/78 95 06/17/18 21:00 100 16 108/79 98 06/17/18 20:30 98 16 114/91 97 06/17/18 20:00 99 16 110/75 96 06/17/18 19:30 103 H 06/17/18 18:25 98.8 F 106 H 18 103/67 100 Intake and Output 06/17/18 06/17/18 06/18/18 14:59 22:59 06:59 Other: Voiding Method Toilet Weight 90.446 kg 89.5 kg Constitutional: No acute distress, conversant, pleasant Eyes: Anicteric sclerae, moist conjunctiva, no lid-lag Pupils equal round reactive to light ENMT: NC/AT Oropharynx clear, no erythema, or exudates Neck: Supple, FROM, no masses, or JVD No carotid bruits No thyromegaly Lungs: Clear to auscultation Clear to percussion Normal respiratory effort, no accessory muscle use Cardiovascular: Heart regular in rate and rhythm, No murmurs, gallops, or rubs No peripheral edema Abdominal: Soft Nontender, no guarding, rebound or rigidity Abdomen moving with respiration Normoactive bowel sounds No hepatomegaly, No splenomegaly No palpable mass No abdominal wall hernia noted Skin: Normal temperature, tone, texture, turgor No induration No subcutaneous nodules No rash, lesions No ulcers Extremities: No digital cyanosis No clubbing Pedal pulses intact and symmetrical Radial pulses intact and symmetrical No calf tenderness Psychiatric: Alert and oriented to person, place and time Appropriate affect fair judgment Neuro Muscles Strength 5/5 in all 4 extremities Sensation to light touch grossly present throughout Cranial nerves II-XII grossly intact No focal sensory deficits Lymphatics: no palpable cervical or supraclavicular , or inguinal lymph nodes Results CBC & Chem 7: 06/17/18 19:30 06/17/18 19:30 Labs: Abnormal Lab Results - Last 24 Hours (Table) 06/17/18 06/17/18 06/17/18 Range/Units 19:30 19:30 19:30 WBC 11.8 H (3.8-10.6) k/uL RDW 15.8 H (11.5-15.5) % Neutrophils # 10.3 H (1.3-7.7) k/uL Lymphocytes # 0.7 L (1.0-4.8) k/uL Calcium 10.8 H (8.4-10.2) mg/dL Magnesium 1.2 L (1.6-2.3) mg/dL Urine Appearance Cloudy H (Clear) Urine Protein 1+ H (Negative) Urine Blood Large H (Negative) Ur Leukocyte Esterase Small H (Negative) Urine RBC >182 H (0-5) /hpf Ur Squamous Epith Cells 5 H (0-4) /hpf Urine Mucus Moderate H (None) /hpf Thrombosis Risk Factor Assmnt - Choose All That Apply Any of the Below Risk Factors Present?: Yes Each Factor Represents 1 point: Obesity (BMI >25) Other Risk Factors: No Other congenital or acquired thrombophilia - If yes, enter type in comment: No Thrombosis Risk Factor Assessment Total Risk Factor Score: 1 Thrombosis Risk Factor Assessment Level: Low Risk Assessment and Plan Assessment: 22-year-old female with history of bipolar disorder and depression admitted under observation with anticipated length of stay less than 48 hours for yakov luation for syncopal attack at home patient was also found to have prolonged QT interval and low magnesium. Patient has been complaining of intermittent chest pain and palpitations. Plan: Syncopal episode rule out underlying arrhythmia atypical chest pain , pleuritic in nature Hypomagnesemia and prolonged QT interval recently restarted on antipsychotic Close cardiac monitoring Replace magnesium, follow up levels Repeat EKG in the morning, evaluate QT interval monitor vital signs History of bipolar disorder and depression Hold antipsychotic medications due to prolonged QT interval DVT prophylaxis heparin subcu 3 times a day Surrogate decision-maker: patient mother CODE STATUS: Full code Discussed with: Patient, ER, Anticipated discharge: <[address]: home A total of 60 minutes was spent on the care of this complex patient more than 50% of the time was spent in counseling and care coordination.
[2018-06-18] MEDS ORDERED: HEPARIN SODIUM,PORCINE 5,000 UNIT/ML 1 ML VIAL SQ SCH (08:00)
[2018-06-18 08:53] VITALS: RESP 20
--- NOTE | 2018-06-18 10:28 | ECHOF ---
Referral Reason: MEASUREMENTS -------- HEIGHT: 160.0 cm WEIGHT: 89.4 kg BP: RVIDd: 2.2 cm (< 3.3) IVSd: 0.9 cm (0.6 - 1.1) LVIDd: 3.4 cm (3.9 - 5.3) LVPWd: 0.8 cm (0.6 - 1.1) IVSs: 1.2 cm LVIDs: 1.7 cm LVPWs: 1.4 cm LAESV Index (A-L): 22.10 ml/m Ao Diam: 2.6 cm (2.0 - 3.7) AV Cusp: 2.0 cm (1.5 - 2.6) LA Diam: 2.9 cm (2.7 - 3.8) MV EXCURSION: 16.399 mm (> 18.000) MV EF SLOPE: 145 mm/s (70 - 150) EPSS: 0.5 cm MV E Chadwick: 0.89 m/s MV DecT: 194 ms MV A Chadwick: 0.64 m/s MV E/A Ratio: 1.39 RAP: 5.00 mmHg RVSP: 11.56 mmHg FINDINGS -------- Sinus rhythm. This was a technically good study. The left ventricular size is normal. Left ventricular wall thickness is normal. Overall left vent ricular systolic function is normal with, an EF between 55 - 60 %. The right ventricle is normal in size. Normal LA size by volume 22+/-6 ml/m2. The right atrial size is normal. The aortic valve is trileaflet and appears structurally normal. There is trace mitral regurgitation. Trace tricuspid regurgitation present. The right ventricular systolic pressure, as measured by Dopp ler, is 11.56mmHg. Pulmonic valve appears structurally normal. The aortic root size is normal. Normal inferior vena cava with normal inspiratory collapse consistent with estimated right atrial pre ssure of 5 mmHg. There is no pericardial effusion. CONCLUSIONS -------- 1. Sinus rhythm. 2. This was a technically good study. 3. The left ventricular size is normal. 4. Left ventricular wall thickness is normal. 5. Overall left ventricular systolic function is normal with, an EF between 55 - 60 %. 6. The right ventricle is normal in size. 7. Normal LA size by volume 22+/-6 ml/m2. 8. The right atrial size is normal. 9. The aortic valve is trileaflet and appears structurally normal. 10. There is trace mitral regurgitation. 11. Trace tricuspid regurgitation present. 12. The right ventricular systolic pressure, as measured by Doppler, is 11.56mmHg. 13. Pulmonic valve appears structurally normal. 14. The aortic root size is normal. 15. Normal inferior vena cava with normal inspiratory collapse consistent with estimated right atrial pressure of 5 mmHg. 16. There is no pericardial effusion. BILLET INSPECTOR: Celina Bernstein RDCS
--- NOTE | 2018-06-18 10:55 | P.CRDCN ---
History of Present Illness Consult date: 06/18/18 Requesting physician: Jose Rhodes Consult reason: sycope Chief complaint: Syncope, palpitations History of present illness: This is a pleasant 22-year-old female with history of bipolar and depression, home medications include trazodone, clozapine, Zoloft, which she states that she's been taking for approximately one year, patient does state that she ran out of her clozapine, and had not taken it for approximately 10 days, just recently over the past 2 days has been back on it. no history of hypertension, no diabetes, no hyperlipidemia, she is a nonsmoker, occasionally states that she'll have a glass of wine. She presents to the hospital on this occasion following a syncopal episode. According to the patient, this was her third trip to the emergency room, she's been experiencing intermittent palpitations with associated chest discomfort. On this occasion, she states that she felt her heart racing fast, and shortly thereafter passed out. Patient states that she feels a flushed sensation like she is getting hot, heart starts racing and things go back, upon wakening she was alert and oriented 3, she did not lose bowel or bladder function. Chest x-ray normal. EKG shows normal sinus rhythm with T wave inversion in the lateral leads, corrected QT 487. Echocard iogram with Doppler study was performed which was normal. Orthostatic blood pressures were obtained which did not reveal any significant change. 110/70, heart rate did not change with position either stated in the 70s to 80s. 95% on room airO2 sat. White blood cell count 11.8, hemoglobin 12.5, platelet count 274. D-dimer 0.33 sodium 140, potassium 3.9, BUN 12 and creatinine 0.6. Magnesium level on admission 1.2, 1.8 this morning. Troponin negative times one. At the time of my examination this morning, patient denies any chest discomfort, breathing is stable. Denies any dizziness or lightheadedness, no palpitations at present. Past Medical History Past Medical History: Asthma Additional Past Medical History / Comment(s): Codiene induced encephalapathy, PMDD-heavy menstrual bleeding with anemia, chronic low back pain, allergy to red seasonings-has epi pen. 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 She is fairly independent. She just recently went back [facility]. She has had previous suicide attempts with overdosing. Smoking Status: Former smoker Past Alcohol Use History: Occasional Additional Past Alcohol Use History / Comment(s): Pt started smoking about age 16 yrs. Mother states she will occasionally binge drink-last drank about 1 week ago. Does not drink on a regular basis. Past Drug Use History: None Reported - Past Family History Father Family Medical History: Cancer Additional Family Medical History / Comment(s): Father had thyroid cancer with surgery and radioactive iodine. Mother Family Medical History: Cancer Additional Family Medical History / Comment(s): Mother had endometrial polyp cancer with hysterectomy. Medications and Allergies Home Medications Medication Instructions Recorded Confirmed Type Sertraline [Zoloft] 50 mg PO HS 03/10/18 06/17/18 History cloZAPine [Clozaril] 300 mg PO HS 03/10/18 06/17/18 History traZODone HCL 50 - 100 mg PO HS 06/15/18 06/17/18 History Ibuprofen [Motrin Ib] 800 mg PO Q6H 06/17/18 06/17/18 History Allergies Allergy/AdvReac Type Severity Reaction Status Date / Time amoxicillin Allergy Rash/Hives Verified 06/17/18 21:06 Physical Exam Vitals: Vital Signs Temp Pulse Pulse Pulse Pulse Pulse Resp 06/18/18 08:00 98.3 F 88 95 83 20 06/18/18 04:32 97.7 F 85 18 06/18/18 03:58 97.7 F 85 18 06/18/18 03:42 97.7 F 74 18 06/18/18 02:12 92 16 06/17/18 23:00 78 16 06/17/18 22:30 94 06/17/18 22:00 90 06/17/18 21:30 105 H 06/17/18 21:00 100 16 06/17/18 20:30 98 16 06/17/18 20:00 99 16 06/17/18 19:30 103 H 06/17/18 18:25 98.8 F 106 H 18 BP BP BP BP BP Pulse Ox 06/18/18 08:00 107/73 110/74 102/67 95 06/18/18 04:32 108/63 96 06/18/18 03:58 108/63 96 06/18/18 03:42 138/88 97 06/18/18 02:12 121/76 95 06/17/18 23:00 121/82 100 06/17/18 22:30 107/77 96 06/17/18 22:00 106/74 97 06/17/18 21:30 106/78 95 06/17/18 21:00 108/79 98 06/17/18 20:30 114/91 97 06/17/18 20:00 110/75 96 06/17/18 19:30 06/17/18 18:25 103/67 100 Intake and Output 06/17/18 06/18/18 06/18/18 22:59 06:59 14:59 Intake Total 120 Balance 120 Intake: Oral 120 Other: Voiding Method Toilet Weight 90.446 kg 89.5 kg PHYSICAL EXAMINATION: GENERAL: 22-year-old female in no acute distress at the time of my examination HEENT: Head is atraumatic, normocephalic. Pupils equal, round. Sclera anicteric. Conjunctiva are clear. Mucous membranes of the mouth are moist. Neck is supple. There is no elevated jugular venous pressure. No carotid bruit is heard. HEART EXAMINATION: Heart S1, S2 normal. No murmur or gallop heard. CHEST EXAMINATION: Lungs are clear to auscultation and precussion. No chest wall tenderness is noted on palpation or with deep breathing. ABDOMEN: Soft, nontender. Bowel sounds are heard. No organomegaly noted. EXTREMITIES: 2+ peripheral pulses with no evidence of peripheral edema and no calf tenderness noted. NEUROLOGIC patient is awake, alert and oriented 3 . . Results 06/17/18 19:30 06/17/18 19:30 Cardiac Enzymes 06/17/18 06/17/18 Range/Units 19:30 19:30 AST 31 (14-36) U/L Troponin I <0.012 (0.000-0.034) ng/mL Coagulation 06/17/18 Range/Units 19:30 PT 10.7 (9.0-12.0) sec APTT 25.3 (22.0-30.0) sec CBC 06/17/18 Range/Units 19:30 WBC 11.8 H (3.8-10.6) k/uL RBC 4.73 (3.80-5.40) m/uL Hgb 12.5 (11.4-16.0) gm/dL Hct 38.4 (34.0-46.0) % Plt Count 274 (150-450) k/uL Comprehensive Metabolic Panel 06/17/18 Range/Units 19:30 Sodium 140 (137-145) mmol/L Potassium 3.9 (3.5-5.1) mmol/L Chloride 104 (98-107) mmol/L Carbon Dioxide 27 (22-30) mmol/L BUN 12 (7-17) mg/dL Creatinine 0.69 (0.52-1.04) mg/dL Glucose 75 (74-99) mg/dL Calcium 10.8 H (8.4-10.2) mg/dL AST 31 (14-36) U/L ALT 39 (9-52) U/L Alkaline Phosphatase 79 (38-126) U/L Total Protein 7.3 (6.3-8.2) g/dL Albumin 4.3 (3.5-5.0) g/dL Current Medications Generic Name Dose Route Start Last Admin Trade Name Freq PRN Reason Stop Dose Admin Heparin Sodium (Porcine) 5,000 unit 06/18/18 08:00 06/18/18 10:25 Heparin SQ 5,000 unit Q8HR GEORGES Administration Sodium Chloride 1,000 mls @ 100 mls/hr 06/17/18 20:45 06/18/18 03:42 Saline 0.9% IV 20 mls/hr .Q10H GEORGES Administration Naloxone HCl 0.2 mg 06/17/18 20:43 Narcan IV Q2M PRN Opioid Reversal Intake and Output 06/17/18 06/18/18 06/18/18 22:59 06:59 14:59 Intake Total 120 Balance 120 Intake: Oral 120 Other: Voiding Method Toilet Weight 90.446 kg 89.5 kg 06/17/18 19:30 06/17/18 19:30 EKG Interpretations (text) EKG shows normal sinus rhythm with lateral T-wave changes and mildly prolonged QT Assessment and Plan Plan: Assessment and plan #1 syncope, likely vasovagal. We will obtain a tilt table test today. Echo revealed normal left ventricular systolic function. No significant orthostatics #2 bipolar depression Plan Echocardiogram with Doppler study was performed which revealed a normal left ventricular systolic function. No significant orthostatic blood pressure or heart rate documented thus far. No significant arrhythmias noted on the monitor, EKG showed normal sinus rhythm with mild prolongation in QT. Recommendation is that the patient undergo a tilt table test today. Further recommendations to follow. DNP note has been reviewed, I agree with a documented findings and plan of care. Patient was seen and examined.
--- NOTE | 2018-06-18 10:56 | P.CRDCN ---
History of Present Illness History of present illness: 22-year-old female who has had palpitations since she was a child. She said her heart was skipping a beat and there would be some fluttering. Lately whenever she stands up or is in a standing position her head feels very hot she does warm and nauseous. She feels her heart race and then she collapses and passes out Sitting down and drinking some water definitely helps She has a history of depression and is on medications for this including Zoloft clozapine and trazodone She also complaining of chronic chest pain ECG was reviewed no definite ST-T abnormalities. Corrected QT interval was prolonged She is not orthostatic 2-D echo and Doppler study shows normal LV systolic function Blood pressure 170 73 mmHg Normal heart sounds Impression Recurrent syncopal spells Chronic chest pain History of depression on medical treatment Mild prolonged corrected QT interval. Absolute QT interval is less than 400 ms Suggest Tilt table test today and recommendations to follow Past Medical History Past Medical History: Asthma Additional Past Medical History / Comment(s): Codiene induced encephalapathy, PMDD-heavy menstrual bleeding with anemia, chronic low back pain, allergy to red seasonings-has epi pen. 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 She is fairly independent. She just recently went back to [facility] with [facility]. She has had previous suicide attempts with overdosing. Smoking Status: Former smoker Past Alcohol Use History: Occasional Additional Past Alcohol Use History / Comment(s): Pt started smoking about age 16 yrs. Mother states she will occasionally binge drink-last drank about 1 week ago. Does not drink on a regular basis. Past Drug Use History: None Reported - Past Family History Father Family Medical History: Cancer Additional Family Medical History / Comment(s): Father had thyroid cancer with surgery and radioactive iodine. Mother Family Medical History: Cancer Additional Family Medical History / Comment(s): Mother had endometrial polyp cancer with hysterectomy. Medications and Allergies Home Medications Medication Instructions Recorded Confirmed Type Sertraline [Zoloft] 50 mg PO HS 03/10/18 06/17/18 History cloZAPine [Clozaril] 300 mg PO HS 03/10/18 06/17/18 History traZODone HCL 50 - 100 mg PO HS 06/15/18 06/17/18 History Ibuprofen [Motrin Ib] 800 mg PO Q6H 06/17/18 06/17/18 History Allergies Allergy/AdvReac Type Severity Reaction Status Date / Time amoxicillin Allergy Rash/Hives Verified 06/17/18 21:06 Physical Exam Vitals: Vital Signs Temp Pulse Pulse Pulse Pulse Pulse Resp 06/18/18 08:00 98.3 F 88 95 83 20 06/18/18 04:32 97.7 F 85 18 06/18/18 03:58 97.7 F 85 18 06/18/18 03:42 97.7 F 74 18 06/18/18 02:12 92 16 06/17/18 23:00 78 16 06/17/18 22:30 94 06/17/18 22:00 90 06/17/18 21:30 105 H 06/17/18 21:00 100 16 06/17/18 20:30 98 16 06/17/18 20:00 99 16 06/17/18 19:30 103 H 06/17/18 18:25 98.8 F 106 H 18 BP BP BP BP BP Pulse Ox 06/18/18 08:00 107/73 110/74 102/67 95 06/18/18 04:32 108/63 96 06/18/18 03:58 108/63 96 06/18/18 03:42 138/88 97 06/18/18 02:12 121/76 95 06/17/18 23:00 121/82 100 06/17/18 22:30 107/77 96 06/17/18 22:00 106/74 97 06/17/18 21:30 106/78 95 06/17/18 21:00 108/79 98 06/17/18 20:30 114/91 97 06/17/18 20:00 110/75 96 06/17/18 19:30 06/17/18 18:25 103/67 100 Intake and Output 06/17/18 06/18/18 06/18/18 22:59 06:59 14:59 Intake Total 120 Balance 120 Intake: Oral 120 Other: Voiding Method Toilet Weight 90.446 kg 89.5 kg Results 06/17/18 19:30 06/17/18 19:30 Cardiac Enzymes 06/17/18 06/17/18 Range/Units 19:30 19:30 AST 31 (14-36) U/L Troponin I <0.012 (0.000-0.034) ng/mL Coagulation 06/17/18 Range/Units 19:30 PT 10.7 (9.0-12.0) sec APTT 25.3 (22.0-30.0) sec CBC 06/17/18 Range/Units 19:30 WBC 11.8 H (3.8-10.6) k/uL RBC 4.73 (3.80-5.40) m/uL Hgb 12.5 (11.4-16.0) gm/dL Hct 38.4 (34.0-46.0) % Plt Count 274 (150-450) k/uL Comprehensive Metabolic Panel 06/17/18 Range/Units 19:30 Sodium 140 (137-145) mmol/L Potassium 3.9 (3.5-5.1) mmol/L Chloride 104 (98-107) mmol/L Carbon Dioxide 27 (22-30) mmol/L BUN 12 (7-17) mg/dL Creatinine 0.69 (0.52-1.04) mg/dL Glucose 75 (74-99) mg/dL Calcium 10.8 H (8.4-10.2) mg/dL AST 31 (14-36) U/L ALT 39 (9-52) U/L Alkaline Phosphatase 79 (38-126) U/L Total Protein 7.3 (6.3-8.2) g/dL Albumin 4.3 (3.5-5.0) g/dL Current Medications Generic Name Dose Route Start Last Admin Trade Name Freq PRN Reason Stop Dose Admin Heparin Sodium (Porcine) 5,000 unit 06/18/18 08:00 06/18/18 10:25 Heparin SQ 5,000 unit Q8HR GEORGES Administration Sodium Chloride 1,000 mls @ 100 mls/hr 06/17/18 20:45 06/18/18 03:42 Saline 0.9% IV 20 mls/hr .Q10H GEORGES Administration Sodium Chloride 1,000 mls @ 20 mls/hr 06/18/18 11:00 Saline 0.9% IV .Q24H GEORGES Naloxone HCl 0.2 mg 06/17/18 20:43 Narcan IV Q2M PRN Opioid Reversal Intake and Output 06/17/18 06/18/18 06/18/18 22:59 06:59 14:59 Intake Total 120 Balance 120 Intake: Oral 120 Other: Voiding Method Toilet Weight 90.446 kg 89.5 kg 06/17/18 19:30 06/17/18 19:30
[2018-06-18] MEDS ORDERED: SODIUM CHLORIDE 0.9% 1,000 ML IV SCH (11:00)
[2018-06-18] MEDS ORDERED: IV FLUID CONTINUATION 1,000 ML IV ONE (11:05)
[2018-06-18 12:49] VITALS: BP 113/66; PULSE 87; TEMP 97.5
--- NOTE | 2018-06-18 14:58 | P.DS ---
Providers Date of admission: 06/17/18 20:38 Expected date of discharge: 06/18/18 Attending physician: Jose Rhodes MD Consults: 06/18/18 09:01 Consult Physician Routine Consulting Provider: Romain Marsh Consult Reason/Comments: syncope, chest pain, feeling of dizziness and blacking out when standing Do you want consulting provider notified?: Yes Primary care physician: Shelia Mejia MD Hospital Course: This is a 22-year-old female with past medical history significant for underlying depression who presented to the emergency room with syncope, atypical chest pain and palpitation. Patient was evaluated in 12-lead EKG showed no acute ischemic changes. Troponin was negative. Patient was placed on observation and no arrhythmia noted on telemetry monitoring. Patient was seen and evaluated by cardiology and underwent echocardiogram showed preserved ejection fraction with no significant valvular abnormalities. She also underwent a tilt table test that was reported to me unremarkable. Patient was cleared by cardiology for discharge. Cardiology felt this okay to continue with her current psych regimen and to monitor her QT interval periodically outpatient was 12-lead EKG. Patient will be discharged home in a stable condition. She will follow-up with cardiology and psychiatry as directed. Patient Condition at Discharge: Fair Plan - Discharge Summary Discharge Rx Participant: Yes New Discharge Prescriptions: Continue Sertraline [Zoloft] 50 mg PO HS cloZAPine [Clozaril] 300 mg PO HS traZODone HCL 50 - 100 mg PO HS Ibuprofen [Motrin Ib] 800 mg PO Q6H Discharge Medication List Sertraline [Zoloft] 50 mg PO HS 03/10/18 [History] cloZAPine [Clozaril] 300 mg PO HS 03/10/18 [History] traZODone HCL 50 - 100 mg PO HS 06/15/18 [History] Ibuprofen [Motrin Ib] 800 mg PO Q6H 06/17/18 [History] Follow up Appointment(s)/Referral(s): Romain Marsh MD [STAFF PHYSICIAN] - 3 Weeks Shelia Mejia MD [Primary Care Provider] - 1-2 days (Spoke to healthcare receptionist. Office to call to schedule appointment time) Patient Instructions/Handouts: Syncope (DC) Discharge Disposition: HOME SELF-CARE
--- NOTE | 2018-06-18 16:35 | P.PCN ---
Preoperative Diagnosis: Diagnosis Recurrent syncope with palpitations feeling heart in the head nauseous and sweaty During her clinical spells, Patient does complain of palpitations associated with the syncopal spells Baseline twelve-lead ECG shows sinus rhythm normal ND narrow QRS Corrected QT interval 480 ms, patient is on multiple psychiatry medications Tilt table test per protocol Baseline blood pressure 103/64 mmHg pacing at a 77 beats a minute Patient was tilted upright at an angle of 70 per protocol While her blood pressure remained in the low 100s and her heart rate remained in the mid 90s without any symptoms, Her blood pressure would dip to below 100 mmHg she would complain of feeling lightheaded nauseous and some chest pain. She also felt dizzy and foggy when the table was tilted upright. No evidence for neurocardiogenic syncope Orthostatic intolerance noted Impression Tilt table test revealing symptoms that were similar to her prodrome but no loss of consciousness Her symptoms included lightheadedness feeling nauseous, chest pain, dizzy fogginess in the head that was similar to early prodromal symptoms when she had episodes of syncope clinically No clear-cut evidence for neurocardiogenic syncope or postural tachycardia syndrome
[2018-06-18] MEDS ORDERED: traZODone HCL 50 MG TAB PO SCH (21:00)
[2018-06-18] MEDS ORDERED: cloZAPine 100 MG TAB PO SCH (21:00)
[2018-06-18] MEDS ORDERED: SERTRALINE 50 MG TAB PO SCH (21:00)
== END 2018-06-18 16:17 | disposition home or self-care (01) | DRG 312 ==
LOC: EC 17:52 → 3SCARD 20:38
PROVIDERS: ADMIT Internal Medicine; ATTEND Internal Medicine
PROC: 4A02XFZ Measurement of Cardiac Rhythm, External Approach (ICD-10-PCS; principal; 2018-06-17)
PROC: 4A03XB1 Measurement of Arterial Pressure, Peripheral, External Approach (ICD-10-PCS; 2018-06-17)
DX: R55 Syncope and collapse (principal); E83.42 Hypomagnesemia; E86.0 Dehydration; F31.9 Bipolar disorder, unspecified; F41.9 Anxiety disorder, unspecified; G89.29 Other chronic pain; J45.909 Unspecified asthma, uncomplicated; Z80.8 Family history of malignant neoplasm of other organs or systems; Z87.891 Personal history of nicotine dependence; Z91.5 Personal history of self-harm; R00.2 Palpitations; R07.9 Chest pain, unspecified; M54.5 Low back pain; I45.81 Long QT syndrome; Z79.1 Long term (current) use of non-steroidal anti-inflammatories (NSAID); Z79.899 Other long term (current) drug therapy
CPT/HCPCS: 36415; 71046; 80053; 81001; 83735; 84443; 84484; 85025; 85379; 85610; 85730; 87086; 93005; 93306; 93660; 96361; 96365; 99285

== ENCOUNTER 2019-01-07 18:02 | Emergency (ER) | payer OTHER ==
[2019-01-07 20:38] LABS: Basophils % (A) 0 %; Eosinophils % (A) 0 %; HCT 40.2 % (34.0-46.0); Lymphocytes # (A) 1.2 k/uL (1.0-4.8); Lymphocytes % (A) 9 %; MCH 26.4 pg (25.0-35.0); MCHC 32.4 g/dL (31.0-37.0); MCV 81.5 fL (80.0-100.0); Mean Platelet Volume 6.4; Monocytes # (A) 0.6 k/uL (0-1.0); Monocytes % (A) 4 %; Neutrophils # (A) 11.8 k/uL (1.3-7.7); Neutrophils % (A) 86 %; Platelet Count 270 k/uL (150-450); RBC 4.93 m/uL (3.80-5.40); RDW 15.3 % (11.5-15.5); WBC 13.8 k/uL (3.8-10.6)
[2019-01-07 20:43] LABS: ALT 38 U/L (9-52); AST 30 U/L (14-36); African American GFR (CKD) >90 (>60 ml/min/1.73 sqM); Albumin 4.6 g/dL (3.5-5.0); Alkaline Phosphatase 101 U/L (38-126); Amylase 82 U/L (30-110); Anion Gap 11 mmol/L; Blood Urea Nitrogen 13 mg/dL (7-17); Calcium 9.6 mg/dL (8.4-10.2); Carbon Dioxide 24 mmol/L (22-30); Chloride 104 mmol/L (98-107); Glucose 91 mg/dL (74-99); Potassium 4.1 mmol/L (3.5-5.1); Sodium 139 mmol/L (137-145); Total Bilirubin 0.4 mg/dL (0.2-1.3); Total Protein 8.1 g/dL (6.3-8.2)
[2019-01-07] MEDS ORDERED: ACETAMINOPHEN TAB 325 MG TAB PO STA (21:04)
[2019-01-07] MEDS ORDERED: SODIUM CHLORIDE 0.9% 1,000 ML IV ONE (21:04)
[2019-01-07] MEDS ORDERED: SODIUM CHLORIDE 0.9% 500 ML 500 ML IV ONE (21:04)
[2019-01-07] MEDS ORDERED: SODIUM CHLORIDE 0.9% 1,000 ML IV SCH (21:15)
[2019-01-07 21:23] LABS: Appearance,Urine Cloudy (Clear); Bacteria,Urine Occasional /hpf; Bilirubin,Urine Negative (Negative); Blood,Urine Negative (Negative); Color,Urine Yellow; Glucose,Urine (UA) Negative (Negative); Ketones,Urine 1+ (Negative); Leukocyte Esterase,Urine Moderate (Negative); Mucus,Urine Moderate /hpf; Nitrite,Urine Negative (Negative); Protein,Urine 1+ (Negative); RBC,Urine 2 /hpf (0-5); Specific Gravity,Urine 1.027 (1.001-1.035); Squamous Epithelial Cell,Urine 13 /hpf (0-4); Urobilinogen,Urine <2.0 mg/dL (<2.0); WBC,Urine 9 /hpf (0-5)
--- NOTE | 2019-01-07 21:39 | XR ---
EXAMINATION TYPE: XR chest 2V DATE OF EXAM: 01/07/2019 COMPARISON: 06/17/2018 INDICATION: Fever cough concern for pneumonia TECHNIQUE: Frontal and lateral views of the chest are obtained. FINDINGS: The heart size is normal. The pulmonary vasculature is normal. The lungs are clear. IMPRESSION: 1. No acute pulmonary process.
--- NOTE | 2019-01-07 23:26 | ED ---
Nausea/Vomiting/Diarrhea HPI - General Chief complaint: Nausea/Vomiting/Diarrhea Stated complaint: chest aches/fever/vomiting Time Seen by Provider: 01/07/19 21:00 Source: patient Mode of arrival: ambulatory Limitations: no limitations - History of Present Illness Initial comments: 23-year-old female no significant past medical history presents for sore for evaluation of fever cough congestion pain with inspiration the left lung. Patient states that for the past 2 days she has had cough congestion. She states today she felt a fever and pain with inspiration the left lung. Patient denies any diarrhea or abdominal pain but states that she has had some nausea and vomiting. Patient denies any rashes and states her vaccinations are up-to-date. Patient denies sore throat and ear pain. Patient denies . Patient denies any difficulty breathing or swallowing. Patient denies headaches or neck stiffness or photophobia. Patient denies any leg swelling hemoptysis history of DVT or pulmonary embolism recent surgeries, hormone use, recent t ravel, fracture or active cancer. Remaining ROS (-). Upon arrival patient appears well. Upon arrival patient is febrile heart rate elevated. However appears nontoxic. - Related Data Home Medications Medication Instructions Recorded Confirmed Sertraline [Zoloft] 50 mg PO HS 03/10/18 01/07/19 cloZAPine [Clozaril] 300 mg PO HS 03/10/18 01/07/19 Ibuprofen [Motrin Ib] 800 mg PO Q6H PRN 06/17/18 01/07/19 Calcium Carbonate [Tums] 500 - 1,000 mg PO TID PRN 01/07/19 01/07/19 Zolpidem [Ambien] 5 mg PO HS 01/07/19 01/07/19 Previous Rx's Medication Instructions Recorded Ibuprofen 800 mg PO Q8H PRN 7 Days #21 tablet 01/08/19 predniSONE 50 mg PO DAILY 4 Days #4 tab 01/08/19 Allergies Allergy/AdvReac Type Severity Reaction Status Date / Time amoxicillin Allergy Rash/Hives Verified 01/07/19 21:12 Review of Systems ROS Statement: Those systems with pertinent positive or pertinent negative responses have been documented in the HPI. ROS Other: All systems not noted in ROS Statement are negative. Past Medical History Past Medical History: Asthma Additional Past Medical History / Comment(s): Codiene induced encephalapathy, PMDD-heavy menstrual bleeding with anemia, chronic low back pain, allergy to red seasonings-has epi pen. 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 Mother Family Medical History: Cancer Additional Family Medical History / Comment(s): Mother had endometrial polyp cancer with hysterectomy. General Exam - General Exam Comments Initial Comments: General: The patient is awake and alert, in no distress, and does not appear acutely ill. Eye: +3 mm pupils are equal, round and reactive to light, extra-ocular moveme nts are intact. No nystagmus. There is normal conjunctiva bilaterally. No signs of icterus. No photophobia Ears, nose, mouth and throat: There are moist mucous membranes and no oral lesions. Oropharynx was not erythematous there is no tonsillar enlargement exudates or lesions. Uvula midline. Tympanic membranes are not erythematous or is no effusions bulging or retraction. No tenderness to palpation of the mastoid. No anterior cervical lymphadenopathy. Rhinorrhea, clear and bilateral nares. No tripoding, no drooling. Neck: The neck is supple, there is no tenderness or JVD. No nuchal rigidity Cardiovascular: There is a regular rate and rhythm. No murmur, rub or gallop is appreciated. Respiratory: Lungs are clear to auscultation, respirations are non-labored, breath sounds are equal. No wheezes, stridor, rales, or rhonchi. No retractions or abdominal breathing. Gastrointestinal: Soft, non-distended, non-tender abdomen without masses or organomegaly noted. There is no rebound or guarding present. Bowel sounds are unremarkable. Musculoskeletal: Normal ROM, no tenderness. Strength 5/5. Sensation intact. Radial pulses equal bilaterally 2+. Neurological: A&O x 3. CN II-XII intact grossly, There are no obvious motor or sensory deficits. Coordination appears grossly intact. Speech appears normal, no muffling. Skin: Skin is warm and dry and no rashes or lesions are noted. No extremity edema Psychiatric: Cooperative Limitations: no limitations Course Vital Signs 01/07/19 01/07/19 01/08/19 18:05 23:37 01:25 Temperature 101.6 F H 98.2 F 98.6 F Pulse Rate 126 H 96 88 Respiratory 20 18 18 Rate Blood Pressure 109/74 111/79 126/78 O2 Sat by Pulse 96 100 Oximetry Medical Decision Making - Medical Decision Making Nontoxic-appearing 23-year-old female presenting for cough left-sided chest pain fever. Chest x-ray revealed no pneumonia. Fever controlled heart rate normalized. Patient given IV fluids. Patient states she is feeling better. Dimer within normal limits. Negative troponin nonspecific EKG changes. This time after discussing case with a provider Dr. Huber we feel this is most likely pleurisy from a viral infection. Patient requesting discharge. Patient was given outside prescription for steroids as well as NSAIDs. Patient is to follow-up with primary care provider and return parameters were discussed the patient was discharged. While EKG interpretation; ventricular rate 94 bpm, PA interval 152 ms, QR hoahaoism 84 ms, QT/QTC 348/435 milliseconds this is normal sinus with a nonspecific T- wave abnormality. No ST elevation or depression. EKG percent interpreted and reviewed from attending provider Dr. Huber - Lab Data Result diagrams: 01/07/19 20:25 01/07/19 20:25 Lab Results 01/07/19 01/07/19 01/07/19 Range/Units 20:25 20:25 20:25 WBC 13.8 H (3.8-10.6) k/uL RBC 4.93 (3.80-5.40) m/uL Hgb 13.0 (11.4-16.0) gm/dL Hct 40.2 (34.0-46.0) % MCV 81.5 (80.0-100.0) fL MCH 26.4 (25.0-35.0) pg MCHC 32.4 (31.0-37.0) g/dL RDW 15.3 (11.5-15.5) % Plt Count 270 (150-450) k/uL Neutrophils % 86 % Lymphocytes % 9 % Monocytes % 4 % Eosinophils % 0 % Basophils % 0 % Neutrophils # 11.8 H (1.3-7.7) k/uL Lymphocytes # 1.2 (1.0-4.8) k/uL Monocytes # 0.6 (0-1.0) k/uL Eosinophils # 0.0 (0-0.7) k/uL Basophils # 0.0 (0-0.2) k/uL D-Dimer (<0.60) mg/L FEU Sodium 139 (137-145) mmol/L Potassium 4.1 (3.5-5.1) mmol/L Chloride 104 (98-107) mmol/L Carbon Dioxide 24 (22-30) mmol/L Anion Gap 11 mmol/L BUN 13 (7-17) mg/dL Creatinine 0.80 (0.52-1.04) mg/dL Est GFR (CKD-EPI)AfAm >90 (>60 ml/min/1.73 sqM) Est GFR (CKD-EPI)NonAf >90 (>60 ml/min/1.73 sqM) Glucose 91 (74-99) mg/dL Plasma Lactic Acid Justin (0.7-2.0) mmol/L Calcium 9.6 (8.4-10.2) mg/dL Total Bilirubin 0.4 (0.2-1.3) mg/dL AST 30 (14-36) U/L ALT 38 (9-52) U/L Alkaline Phosphatase 101 (38-126) U/L Troponin I <0.012 (0.000-0.034) ng/mL Total Protein 8.1 (6.3-8.2) g/dL Albumin 4.6 (3.5-5.0) g/dL Amylase 82 (30-110) U/L Lipase 76 (23-300) U/L Urine Color Urine Appearance (Clear) Urine pH (5.0-8.0) Ur Specific [place] (1.001-1.035) Urine Protein (Negative) Urine Glucose (UA) (Negative) Urine Ketones (Negative) Urine Blood (Negative) Urine Nitrite (Negative) Urine Bilirubin (Negative) Urine Urobilinogen (<2.0) mg/dL Ur Leukocyte Esterase (Negative) Urine RBC (0-5) /hpf Urine WBC (0-5) /hpf Ur Squamous Epith Cells (0-4) /hpf Urine Bacteria (None) /hpf Urine Mucus (None) /hpf Urine HCG, Qual (Not Detectd) Influenza Type A RNA (Not Detectd) Influenza Type B (PCR) (Not Detectd) 01/07/19 01/07/19 01/07/19 Range/Units 20:25 21:00 21:00 WBC (3.8-10.6) k/uL RBC (3.80-5.40) m/uL Hgb (11.4-16.0) gm/dL Hct (34.0-46.0) % MCV (80.0-100.0) fL MCH (25.0-35.0) pg MCHC (31.0-37.0) g/dL RDW (11.5-15.5) % Plt Count (150-450) k/uL Neutrophils % % Lymphocytes % % Monocytes % % Eosinophils % % Basophils % % Neutrophils # (1.3-7.7) k/uL Lymphocytes # (1.0-4.8) k/uL Monocytes # (0-1.0) k/uL Eosinophils # (0-0.7) k/uL Basophils # (0-0.2) k/uL D-Dimer 0.27 (<0.60) mg/L FEU Sodium (137-145) mmol/L Potassium (3.5-5.1) mmol/L Chloride (98-107) mmol/L Carbon Dioxide (22-30) mmol/L Anion Gap mmol/L BUN (7-17) mg/dL Creatinine (0.52-1.04) mg/dL Est GFR (CKD-EPI)AfAm (>60 ml/min/1.73 sqM) Est GFR (CKD-EPI)NonAf (>60 ml/min/1.73 sqM) Glucose (74-99) mg/dL Plasma Lactic Acid Justin (0.7-2.0) mmol/L Calcium (8.4-10.2) mg/dL Total Bilirubin (0.2-1.3) mg/dL AST (14-36) U/L ALT (9-52) U/L Alkaline Phosphatase (38-126) U/L Troponin I (0.000-0.034) ng/mL Total Protein (6.3-8.2) g/dL Albumin (3.5-5.0) g/dL Amylase (30-110) U/L Lipase (23-300) U/L Urine Color Yellow Urine Appearance Cloudy H (Clear) Urine pH 8.0 (5.0-8.0) Ur Specific [place] 1.027 (1.001-1.035) Urine Protein 1+ H (Negative) Urine Glucose (UA) Negative (Negative) Urine Ketones 1+ H (Negative) Urine Blood Negative (Negative) Urine Nitrite Negative (Negative) Urine Bilirubin Negative (Negative) Urine Urobilinogen <2.0 (<2.0) mg/dL Ur Leukocyte Esterase Moderate H (Negative) Urine RBC 2 (0-5) /hpf Urine WBC 9 H (0-5) /hpf Ur Squamous Epith Cells 13 H (0-4) /hpf Urine Bacteria Occasional H (None) /hpf Urine Mucus Moderate H (None) /hpf Urine HCG, Qual Not Detected (Not Detectd) Influenza Type A RNA (Not Detectd) Influenza Type B (PCR) (Not Detectd) 01/07/19 01/07/19 Range/Units 21:17 21:19 WBC (3.8-10.6) k/uL RBC (3.80-5.40) m/uL Hgb (11.4-16.0) gm/dL Hct (34.0-46.0) % MCV (80.0-100.0) fL MCH (25.0-35.0) pg MCHC (31.0-37.0) g/dL RDW (11.5-15.5) % Plt Count (150-450) k/uL Neutrophils % % Lymphocytes % % Monocytes % % Eosinophils % % Basophils % % Neutrophils # (1.3-7.7) k/uL Lymphocytes # (1.0-4.8) k/uL Monocytes # (0-1.0) k/uL Eosinophils # (0-0.7) k/uL Basophils # (0-0.2) k/uL D-Dimer (<0.60) mg/L FEU Sodium (137-145) mmol/L Potassium (3.5-5.1) mmol/L Chloride (98-107) mmol/L Carbon Dioxide (22-30) mmol/L Anion Gap mmol/L BUN (7-17) mg/dL Creatinine (0.52-1.04) mg/dL Est GFR (CKD-EPI)AfAm (>60 ml/min/1.73 sqM) Est GFR (CKD-EPI)NonAf (>60 ml/min/1.73 sqM) Glucose (74-99) mg/dL Plasma Lactic Acid Justin 1.2 (0.7-2.0) mmol/L Calcium (8.4-10.2) mg/dL Total Bilirubin (0.2-1.3) mg/dL AST (14-36) U/L ALT (9-52) U/L Alkaline Phosphatase (38-126) U/L Troponin I (0.000-0.034) ng/mL Total Protein (6.3-8.2) g/dL Albumin (3.5-5.0) g/dL Amylase (30-110) U/L Lipase (23-300) U/L Urine Color Urine Appearance (Clear) Urine pH (5.0-8.0) Ur Specific [place] (1.001-1.035) Urine Protein (Negative) Urine Glucose (UA) (Negative) Urine Ketones (Negative) Urine Blood (Negative) Urine Nitrite (Negative) Urine Bilirubin (Negative) Urine Urobilinogen (<2.0) mg/dL Ur Leukocyte Esterase (Negative) Urine RBC (0-5) /hpf Urine WBC (0-5) /hpf Ur Squamous Epith Cells (0-4) /hpf Urine Bacteria (None) /hpf Urine Mucus (None) /hpf Urine HCG, Qual (Not Detectd) Influenza Type A RNA Not Detected (Not Detectd) Influenza Type B (PCR) Not Detected (Not Detectd) Disposition Clinical Impression: Viral syndrome, Pleurisy Disposition: HOME SELF-CARE Condition: Good Instructions (If sedation given, give patient instructions): Pleurisy (ED) Additional Instructions: Please use medication as discussed. Please follow-up with family doctor in the next 2 days. Please return to emergency room if the symptoms increase or worsen or for any other concerns. Prescriptions: Ibuprofen 800 mg PO Q8H PRN 7 Days #21 tablet PRN Reason: Pain predniSONE 50 mg PO DAILY 4 Days #4 tab Is patient prescribed a controlled substance at d/c from ED?: No Referrals: None,Stated [Primary Care Provider] - 1-2 days Time of Disposition: 00:33
[2019-01-07 23:40] VITALS: RESP 18
[2019-01-08 01:27] VITALS: BP 126/78; PULSE 88; TEMP 98.6
== END 2019-01-08 01:27 | disposition home or self-care (01) ==
LOC: EC 18:02
DX: B34.9 Viral infection, unspecified (principal); R09.1 Pleurisy; F41.9 Anxiety disorder, unspecified; F31.9 Bipolar disorder, unspecified; G89.29 Other chronic pain; M54.9 Dorsalgia, unspecified; J30.2 Other seasonal allergic rhinitis; Z79.899 Other long term (current) drug therapy; Z87.891 Personal history of nicotine dependence; Z88.0 Allergy status to penicillin
CPT/HCPCS: 36415; 93005; 85379; 80053; 82150; 83605; 83690; 84484; 85025; 81001; 81025; 87040; 87502; 71046; 99284; 96365; J0696

== ENCOUNTER 2019-04-15 15:38 | Emergency (ER) | payer OTHER ==
[2019-04-15 16:19] VITALS: RESP 16; TEMP 98
[2019-04-15] MEDS ORDERED: SODIUM CHLORIDE 0.9% 1,000 ML IV ONE ×2 (16:46)
--- NOTE | 2019-04-15 17:12 | ED ---
Female Urogenital HPI - General Source: patient, RN notes reviewed, old records reviewed Mode of arrival: ambulatory Limitations: no limitations - History of Present Illness Last Menstrual Period: 03/24/19 <Radha Lala - Last Filed: 04/15/19 17:32> <ReynaldoPilar Leana - Last Filed: 04/19/19 14:56> - General Chief complaint: Vaginal Bleeding Stated complaint: Female Gu Time Seen by Provider: 04/15/19 16:37 - History of Present Illness Initial comments: 21-year-old female presents emergency department today for evaluation for concern for heavy vaginal bleeding since March 24. She reports that she's been passing heavy clots. She states she's had this happen before. She does not have an INTEGRATED SPECIALIST at this time. Patient states that she does have protected sex with there is a chance she could still be . She relates that she's had an episode of his anus and syncope today. She is concerned since related to being anemic. She does not take iron at this time. Patient states that she has been feeling lightheaded denies any specific chest pain. She denies any other complaints. (Radha Lala) - Related Data Home Medications Medication Instructions Recorded Confirmed Sertraline [Zoloft] 50 mg PO HS 03/10/18 01/07/19 cloZAPine [Clozaril] 300 mg PO HS 03/10/18 01/07/19 Ibuprofen [Motrin Ib] 800 mg PO Q6H PRN 06/17/18 01/07/19 Calcium Carbonate [Tums] 500 - 1,000 mg PO TID PRN 01/07/19 01/07/19 Zolpidem [Ambien] 5 mg PO HS 01/07/19 01/07/19 Previous Rx's Medication Instructions Recorded Ibuprofen 800 mg PO Q8H PRN 7 Days #21 tablet 01/08/19 predniSONE 50 mg PO DAILY 4 Days #4 tab 01/08/19 metroNIDAZOLE [Flagyl] 500 mg PO BID #14 tab 04/15/19 Allergies Allergy/AdvReac Type Severity Reaction Status Date / Time amoxicillin Allergy Rash/Hives Verified 01/07/19 21:12 Review of Systems ROS Other: All systems not noted in ROS Statement are negative. <Radha Lala - Last Filed: 04/15/19 17:32> ROS Other: All systems not noted in ROS Statement are negative. <Pilar Jacobs - Last Filed: 04/19/19 14:56> ROS Statement: Those systems with pertinent positive or pertinent negative responses have been documented in the HPI. Past Medical History Past Medical History: Asthma Additional Past Medical History / Comment(s): Codiene induced encephalapathy, PMDD-heavy menstrual bleeding with anemia, chronic low back pain, allergy to red seasonings-has epi pen. 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 Mother Family Medical History: Cancer Additional Family Medical History / Comment(s): Mother had endometrial polyp cancer with hysterectomy. <Radha Lala - Last Filed: 04/15/19 17:32> General Exam Limitations: no limitations General appearance: alert, in no apparent distress Head exam: Present: atraumatic, normocephalic, normal inspection Eye exam: Present: normal appearance, PERRL, EOMI. Absent: scleral icterus, conjunctival injection, periorbital swelling ENT exam: Present: normal exam, mucous membranes moist Neck exam: Present: normal inspection. Absent: tenderness, meningismus, lymphadenopathy Respiratory exam: Present: normal lung sounds bilaterally. Absent: respiratory distress, wheezes, rales, rhonchi, stridor Cardiovascular Exam: Present: regular rate, normal rhythm, normal heart sounds. Absent: systolic murmur, diastolic murmur, rubs, gallop, clicks GI/Abdominal exam: Present: soft, normal bowel sounds. Absent: distended, tenderness, guarding, rebound, rigid External exam: Present: normal external exam Speculum exam: Present: vaginal bleeding, other (foul odor). Absent: normal speculum exam By manual exam: Present: normal by manual exam. Absent: cervical motion tenderness, adnexal tenderness Extremities exam: Present: normal inspection, full ROM, normal capillary refill. Absent: tenderness, pedal edema, joint swelling, calf tenderness Back exam: Present: normal inspection Neurological exam: Present: alert, oriented X3, CN II-XII intact Psychiatric exam: Present: normal affect, normal mood Skin exam: Present: warm, dry, intact, normal color. Absent: rash <HayleyBobbi hammerily - Last Filed: 04/15/19 17:32> - General Exam Comments Initial Comments: Alert and oriented 23-year-old female. No significant distress. (Radha Lala) Course Vital Signs 04/15/19 04/15/19 16:15 18:44 Temperature 98.0 F Pulse Rate 105 H Pulse Rate [ 96 Sitting] Pulse Rate [ 97 Standing] Pulse Rate [ 70 Supine] Respiratory 16 Rate Blood Pressure 98/74 Blood Pressure 111/79 [Sitting] Blood Pressure 112/75 [Standing] Blood Pressure 108/71 [Supine] O2 Sat by Pulse 99 Oximetry Medical Decision Making <Radha Lala - Last Filed: 04/15/19 17:32> - Lab Data Result diagrams: 04/15/19 17:20 <Pilar aJcobs - Last Filed: 04/19/19 14:56> - Medical Decision Making 21-year-old female with heavy vaginal bleeding since March 24. She reports she has a episode today. Patient does have vaginal bleeding on exam. No adnexal tenderness. Patient's denies chance of at this time. Lab work will be completed and EKG will be completed. Patient's case was discussed with Dr. Jacobs who will take over case. (Radha Lala) The patient was signed out to me at shift change. Did evaluate the patient myself. She does present to the emergency department with reported persistent vaginal bleeding which has made her feel lightheaded. The patient is currently receiving IV fluids. Pelvic exam was performed by the mid-level. I did review the patient's laboratory studies with her. Hemoglobin is 12.7 from 13.6. This was previously measured on the seventh of this month. Urinalysis shows small leukocyte esterase, rare bacteria and large blood however there are 8 epithelial cells. HCG is negative. Trichomonas is negative. I did discuss treatment for chlamydia and gonorrhea for which the patient did request to have in the ER. I also offered treatment for bacterial vaginosis as the patient did have a foul odor discharge noted on pelvic exam. Patient states she has received treatment for BV multiple times and is requesting treatment at this time. The patient does have a follow-up appointment with her primary care tomorrow. Orthostatics were obtained and were negative on the patient. I will provide the patient with prescription for Flagyl. She is instructed not to drink taking the medications. She is to follow-up with her primary care doctor tomorrow. I do recommend that she be evaluated by an INTEGRATED SPECIALIST for her persistent bleeding. The patient and her mother at bedside were in agreement treatment plan the patient was discharged home in stable condition (Pilar Jacobs) - Lab Data Lab Results 04/15/19 04/15/19 04/15/19 Range/Units 17:20 17:20 17:20 WBC 6.8 (3.8-10.6) k/uL RBC 4.77 (3.80-5.40) m/uL Hgb 12.7 (11.4-16.0) gm/dL Hct 39.8 (34.0-46.0) % MCV 83.5 (80.0-100.0) fL MCH 26.7 (25.0-35.0) pg MCHC 32.0 (31.0-37.0) g/dL RDW 15.0 (11.5-15.5) % Plt Count 272 (150-450) k/uL Neutrophils % 64 % Lymphocytes % 27 % Monocytes % 7 % Eosinophils % 0 % Basophils % 0 % Neutrophils # 4.3 (1.3-7.7) k/uL Lymphocytes # 1.8 (1.0-4.8) k/uL Monocytes # 0.5 (0-1.0) k/uL Eosinophils # 0.0 (0-0.7) k/uL Basophils # 0.0 (0-0.2) k/uL Urine Color Urine Appearance (Clear) Urine pH (5.0-8.0) Ur Specific [place] (1.001-1.035) Urine Protein (Negative) Urine Glucose (UA) (Negative) Urine Ketones (Negative) Urine Blood (Negative) Urine Nitrite (Negative) Urine Bilirubin (Negative) Urine Urobilinogen (<2.0) mg/dL Ur Leukocyte Esterase (Negative) Urine RBC (0-5) /hpf Urine WBC (0-5) /hpf Ur Squamous Epith Cells (0-4) /hpf Urine Bacteria (None) /hpf Urine Mucus (None) /hpf Urine HCG, Qual Not Detected (Not Detectd) Chlamydia Source Vagina Chlamydia DNA (PCR) Negative (Neg,Equiv) N. gonorrhoeae Source N.gonorrhoeae DNA Probe (Neg,Equiv) Trichomonas Ag (Rapid) (Negative) Blood Type Blood Type Confirm Blood Type Recheck Bld Type Recheck Status Antibody Screen Spec Expiration Date 04/15/19 04/15/19 04/15/19 Range/Units 17:20 17:20 17:20 WBC (3.8-10.6) k/uL RBC (3.80-5.40) m/uL Hgb (11.4-16.0) gm/dL Hct (34.0-46.0) % MCV (80.0-100.0) fL MCH (25.0-35.0) pg MCHC (31.0-37.0) g/dL RDW (11.5-15.5) % Plt Count (150-450) k/uL Neutrophils % % Lymphocytes % % Monocytes % % Eosinophils % % Basophils % % Neutrophils # (1.3-7.7) k/uL Lymphocytes # (1.0-4.8) k/uL Monocytes # (0-1.0) k/uL Eosinophils # (0-0.7) k/uL Basophils # (0-0.2) k/uL Urine Color Urine Appearance (Clear) Urine pH (5.0-8.0) Ur Specific [place] (1.001-1.035) Urine Protein (Negative) Urine Glucose (UA) (Negative) Urine Ketones (Negative) Urine Blood (Negative) Urine Nitrite (Negative) Urine Bilirubin (Negative) Urine Urobilinogen (<2.0) mg/dL Ur Leukocyte Esterase (Negative) Urine RBC (0-5) /hpf Urine WBC (0-5) /hpf Ur Squamous Epith Cells (0-4) /hpf Urine Bacteria (None) /hpf Urine Mucus (None) /hpf Urine HCG, Qual (Not Detectd) Chlamydia Source Chlamydia DNA (PCR) (Neg,Equiv) N. gonorrhoeae Source Vagina N.gonorrhoeae DNA Probe Negative (Neg,Equiv) Trichomonas Ag (Rapid) Negative (Negative) Blood Type O Negative Blood Type Confirm Blood Type Recheck No Previous Record Bld Type Recheck Status CABO Indicated Antibody Screen NEGATIVE Spec Expiration Date 04/18/2019 - 231904/15/19 04/15/19 Range/Units 17:20 17:22 WBC (3.8-10.6) k/uL RBC (3.80-5.40) m/uL Hgb (11.4-16.0) gm/dL Hct (34.0-46.0) % MCV (80.0-100.0) fL MCH (25.0-35.0) pg MCHC (31.0-37.0) g/dL RDW (11.5-15.5) % Plt Count (150-450) k/uL Neutrophils % % Lymphocytes % % Monocytes % % Eosinophils % % Basophils % % Neutrophils # (1.3-7.7) k/uL Lymphocytes # (1.0-4.8) k/uL Monocytes # (0-1.0) k/uL Eosinophils # (0-0.7) k/uL Basophils # (0-0.2) k/uL Urine Color Yellow Urine Appearance Cloudy H (Clear) Urine pH 5.5 (5.0-8.0) Ur Specific [place] 1.011 (1.001-1.035) Urine Protein Trace H (Negative) Urine Glucose (UA) Negative (Negative) Urine Ketones Negative (Negative) Urine Blood Large H (Negative) Urine Nitrite Negative (Negative) Urine Bilirubin Negative (Negative) Urine Urobilinogen <2.0 (<2.0) mg/dL Ur Leukocyte Esterase Small H (Negative) Urine RBC 2 (0-5) /hpf Urine WBC 5 (0-5) /hpf Ur Squamous Epith Cells 8 H (0-4) /hpf Urine Bacteria Rare H (None) /hpf Urine Mucus Rare H (None) /hpf Urine HCG, Qual (Not Detectd) Chlamydia Source Chlamydia DNA (PCR) (Neg,Equiv) N. gonorrhoeae Source N.gonorrhoeae DNA Probe (Neg,Equiv) Trichomonas Ag (Rapid) (Negative) Blood Type Blood Type Confirm O Negative Blood Type Recheck Bld Type Recheck Status Antibody Screen Spec Expiration Date - EKG Data EKG Comments: EKG demonstrates normal sinus rhythm with a ventricular rate of 89. WV interval 150. QRS 86. QTC of 447. No acute ST segment elevations or depressions concerning for ischemic changes. No signs of Rpnky-[id number]-Rsbka or Brugada syndrome (Pilar Jacobs) Disposition <Radha Lala - Last Filed: 04/15/19 17:32> Is patient prescribed a controlled substance at d/c from ED?: No Time of Disposition: 18:54 <Pilar Jacobs - Last Filed: 04/19/19 14:56> Clinical Impression: Menorrhagia, Dysfunctional uterine bleeding Disposition: HOME SELF-CARE Condition: Stable Instructions (If sedation given, give patient instructions): Dysmenorrhea (ED) Additional Instructions: Please follow-up with your INTEGRATED SPECIALIST tomorrow. Return to the emergency room for any new or worsening symptoms. Do not drink while taking the Flagyl. Prescriptions: metroNIDAZOLE [Flagyl] 500 mg PO BID #14 tab Referrals: Vitor Hinson [Primary Care Provider] - 1-2 days
[2019-04-15 17:54] LABS: Basophils % (A) 0 %; Eosinophils % (A) 0 %; HCT 39.8 % (34.0-46.0); HGB 12.7 gm/dL (11.4-16.0); Lymphocytes # (A) 1.8 k/uL (1.0-4.8); Lymphocytes % (A) 27 %; MCH 26.7 pg (25.0-35.0); MCV 83.5 fL (80.0-100.0); Mean Platelet Volume 8.1; Monocytes # (A) 0.5 k/uL (0-1.0); Monocytes % (A) 7 %; Neutrophils # (A) 4.3 k/uL (1.3-7.7); Neutrophils % (A) 64 %; Platelet Count 272 k/uL (150-450); RBC 4.77 m/uL (3.80-5.40); WBC 6.8 k/uL (3.8-10.6)
[2019-04-15 18:04] LABS: Appearance,Urine Cloudy (Clear); Bacteria,Urine Rare /hpf; Bilirubin,Urine Negative (Negative); Blood,Urine Large (Negative); Color,Urine Yellow; Glucose,Urine (UA) Negative (Negative); Ketones,Urine Negative (Negative); Leukocyte Esterase,Urine Small (Negative); Mucus,Urine Rare /hpf; Nitrite,Urine Negative (Negative); PH, Urine 5.5 (5.0-8.0); Protein,Urine Trace (Negative); RBC,Urine 2 /hpf (0-5); Specific Gravity,Urine 1.011 (1.001-1.035); Squamous Epithelial Cell,Urine 8 /hpf (0-4); Urobilinogen,Urine <2.0 mg/dL (<2.0); WBC,Urine 5 /hpf (0-5)
[2019-04-15] MEDS ORDERED: AZITHROMYCIN 250 MG TAB PO STA (18:49)
[2019-04-15] MEDS ORDERED: cefTRIAXone 250 MG VIAL IM STA (18:49)
[2019-04-15 18:50] VITALS: BP 108/71; PULSE 70
[2019-04-17 11:13] LABS: C. trachomatis,PCR Negative (Neg,Equiv); Chlamydia trachomatis Source Vagina
[2019-04-17 11:16] LABS: N. gonorrhoeae,PCR Negative (Neg,Equiv); Neisseria Source Vagina
== END 2019-04-15 19:12 | disposition home or self-care (01) ==
LOC: EC 15:38
DX: N93.8 Other specified abnormal uterine and vaginal bleeding (principal); D50.0 Iron deficiency anemia secondary to blood loss (chronic); F31.9 Bipolar disorder, unspecified; F41.9 Anxiety disorder, unspecified; Z87.891 Personal history of nicotine dependence; Z88.0 Allergy status to penicillin; Z79.899 Other long term (current) drug therapy; Z53.8 Procedure and treatment not carried out for other reasons; Z84.2 Family history of other diseases of the genitourinary system; Z53.20 Procedure and treatment not carried out because of patient's decision for unspecified reasons
CPT/HCPCS: 36415; 81001; 81025; 85025; 86850; 86900; 86901; 87070; 87491; 87591; 87808; 93005; 96360; 99284

== ENCOUNTER 2019-08-30 21:22 | Inpatient (IN) | payer MEDICAID, OTHER ==
[2019-08-30 22:53] LABS: Amphetamine Screen,Urine Not Detected (NotDetected); Barbiturate Screen,Urine Not Detected (NotDetected); Benzodiazepines Screen,Urine Not Detected (NotDetected); Cocaine Screen,Urine Not Detected (NotDetected); Methadone Screen, Urine Not Detected (NotDetected); Opiate Screen,Urine Not Detected (NotDetected); Oxycodone Screen, Urine Not Detected (NotDetected); Phencyclidine Screen,Urine Not Detected (NotDetected); Tricyclic Antidepressant,Urine Detected (NotDetected); Urn Cannabinoid Scrn Not Detected (NotDetected)
--- NOTE | 2019-08-30 23:18 | ED ---
Psych HPI - General Chief Complaint: Psychiatric Symptoms Stated Complaint: Mental Health Time Seen by Provider: 08/30/19 22:17 Source: patient Mode of arrival: ambulatory - History of Present Illness Initial Comments: Patient is a 23-year-old female, with history of depression, presenting to the emergency department for a psychiatric evaluation. Patient states for the last 2 weeks she feels like her depression has been worsening and she is having suicidal thoughts. She states she does not have a plan. She denies homicidal thoughts. She denies any recent fever, chills. She denies any recent change in her medication. She has been compliant with her medications. She has no further complaints at this time. Upon arrival to the ER, her vital signs are stable. - Related Data Home Medications Medication Instructions Recorded Confirmed Sertraline [Zoloft] 50 mg PO HS 03/10/18 01/07/19 cloZAPine [Clozaril] 300 mg PO HS 03/10/18 01/07/19 Ibuprofen [Motrin Ib] 800 mg PO Q6H PRN 06/17/18 01/07/19 Calcium Carbonate [Tums] 500 - 1,000 mg PO TID PRN 01/07/19 01/07/19 Zolpidem [Ambien] 5 mg PO HS 01/07/19 01/07/19 Previous Rx's Medication Instructions Recorded Ibuprofen 800 mg PO Q8H PRN 7 Days #21 tablet 01/08/19 predniSONE 50 mg PO DAILY 4 Days #4 tab 01/08/19 metroNIDAZOLE [Flagyl] 500 mg PO BID #14 tab 04/15/19 Allergies Allergy/AdvReac Type Severity Reaction Status Date / Time amoxicillin Allergy Rash/Hives Verified 01/07/19 21:12 Review of Systems ROS Statement: Those systems with pertinent positive or pertinent negative responses have been documented in the HPI. ROS Other: All systems not noted in ROS Statement are negative. Past Medical History Past Medical History: Asthma Additional Past Medical History / Comment(s): Codiene induced encephalapathy, PMDD-heavy menstrual bleeding with anemia, chronic low back pain, allergy to red seasonings-has epi pen. 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 Mother Family Medical History: Cancer Additional Family Medical History / Comment(s): Mother had endometrial polyp cancer with hysterectomy. General Exam - General Exam Comments Initial Comments: GENERAL: Well-appearing, well-nourished and in no acute distress. HEAD: Atraumatic, normocephalic. EYES: Pupils equal round and reactive to light, extraocular movements intact, sclera anicteric, conjunctiva are normal. ENT: TMs normal, nares patent, oropharynx clear without exudates. Moist mucous membranes. NECK: Normal range of motion, supple without lymphadenopathy or JVD. LUNGS: Breath sounds clear to auscultation bilaterally and equal. No wheezes rales or rhonchi. HEART: Regular rate and rhythm without murmurs, rubs or gallops. ABDOMEN: Soft, nontender, normoactive bowel sounds. No guarding, no rebound. No masses appreciated. : Deferred EXTREMITIES: Normal range of motion, no pitting or edema. No clubbing or cyanosis. NEUROLOGICAL: Normal speech, normal gait. PSYCH: Normal mood, normal affect. SKIN: Warm, Dry, normal turgor, no rashes or lesions noted. Limitations: no limitations Course Vital Signs 08/30/19 21:38 Temperature 98.7 F Pulse Rate 96 Respiratory 18 Rate Blood Pressure 141/95 O2 Sat by Pulse 98 Oximetry Medical Decision Making - Medical Decision Making Patient is a 23-year-old female here for psychiatric evaluation. She has a history of depression, having increasing suicidal thoughts over the past week. She states she thinks she needs a med adjustment. She denies any drug use, alcohol use. Patient was evaluated by EPS and they do recommended admission. Patient will be admitted to the psych unit. Patient is agreement with this plan of care. - Lab Data Lab Results 08/30/19 Range/Units 22:05 Urine Opiates Screen Not Detected (NotDetected) Ur Oxycodone Screen Not Detected (NotDetected) Urine Methadone Screen Not Detected (NotDetected) Ur Propoxyphene Screen Not Detected (NotDetected) Ur Barbiturates Screen Not Detected (NotDetected) U Tricyclic Antidepress Detected H (NotDetected) Ur Phencyclidine Scrn Not Detected (NotDetected) Ur Amphetamines Screen Not Detected (NotDetected) U Methamphetamines Scrn Not Detected (NotDetected) U Benzodiazepines Scrn Not Detected (NotDetected) Urine Cocaine Screen Not Detected (NotDetected) U Marijuana (THC) Screen Not Detected (NotDetected) Disposition Clinical Impression: Suicidal ideation, Depression Disposition: TRANSFER TO PSYCH HOSP/UNIT Condition: Stable Is patient prescribed a controlled substance at d/c from ED?: No Referrals: Vitor Hinson [Primary Care Provider] - 1-2 days Decision Date: 08/31/19 Decision Time: 00:14
[2019-08-31] MEDS ORDERED: MAGNESIUM HYDROXIDE 2,400 MG/10 ML CUP PO PRN (00:22)
[2019-08-31] MEDS ORDERED: ACETAMINOPHEN TAB 325 MG TAB PO PRN (00:22)
[2019-08-31] MEDS ORDERED: ZIPRASIDONE 20 MG VIAL IM PRN (00:22)
[2019-08-31] MEDS ORDERED: IBUPROFEN 800 MG TAB PO PRN (00:30)
[2019-08-31 01:10] LABS: Appearance,Urine Cloudy (Clear); Bacteria,Urine Rare /hpf; Bilirubin,Urine Negative (Negative); Blood,Urine Large (Negative); Color,Urine Yellow; Glucose,Urine (UA) Negative (Negative); Ketones,Urine Negative (Negative); Leukocyte Esterase,Urine Trace (Negative); Mucus,Urine Occasional /hpf; Nitrite,Urine Negative (Negative); PH, Urine 5.5 (5.0-8.0); Protein,Urine Trace (Negative); RBC,Urine >182 /hpf (0-5); Squamous Epithelial Cell,Urine 2 /hpf (0-4); Urobilinogen,Urine <2.0 mg/dL (<2.0); WBC,Urine 4 /hpf (0-5)
[2019-08-31] MEDS: cloZAPine 100 MG TAB PO SCH ×2 (01:55→20:38)
[2019-08-31] MEDS: traZODone HCL 100 MG TAB PO SCH ×2 (01:56→20:38)
[2019-08-31] MEDS: LORazepam 1 MG TAB PO PRN ×2 (02:41→20:39)
--- NOTE | 2019-08-31 11:31 | P.HP ---
Psychiatric H&P - . H&P Date: 08/31/19 History & Physical: Allergies Allergy/AdvReac Type Severity Reaction Status Date / Time amoxicillin Allergy Rash/Hives Verified 08/31/19 01:39 Vital Signs Temp 98.3 F 08/31/19 01:17 Pulse 92 08/31/19 01:17 Resp 17 08/31/19 01:17 BP 119/74 08/31/19 01:17 Pulse Ox 98 08/31/19 01:17 Intake & Output 08/30/19 08/31/19 08/31/19 18:59 06:59 18:59 Weight 94.9 kg Laboratory Last Values Urine Color Yellow 08/30/19 22:05 Urine Appearance Cloudy (Clear) H 08/30/19 22:05 Urine pH 5.5 (5.0-8.0) 08/30/19 22:05 Ur Specific [place] 1.010 (1.001-1.035) 08/30/19 22:05 Urine Protein Trace (Negative) H 08/30/19 22:05 Urine Glucose (UA) Negative (Negative) 08/30/19 22:05 Urine Ketones Negative (Negative) 08/30/19 22:05 Urine Blood Large (Negative) H 08/30/19 22:05 Urine Nitrite Negative (Negative) 08/30/19 22:05 Urine Bilirubin Negative (Negative) 08/30/19 22:05 Urine Urobilinogen <2.0 mg/dL (<2.0) 08/30/19 22:05 Ur Leukocyte Esterase Trace (Negative) H 08/30/19 22:05 Urine RBC >182 /hpf (0-5) H 08/30/19 22:05 Urine WBC 4 /hpf (0-5) 08/30/19 22:05 Ur Squamous Epith Cells 2 /hpf (0-4) 08/30/19 22:05 Urine Bacteria Rare /hpf (None) H 08/30/19 22:05 Urine Mucus Occasional /hpf (None) H 08/30/19 22:05 Urine HCG, Qual Not Detected (Not Detectd) 08/30/19 22:05 Urine Opiates Screen Not Detected (NotDetected) 08/30/19 22:05 Ur Oxycodone Screen Not Detected (NotDetected) 08/30/19 22:05 Urine Methadone Screen Not Detected (NotDetected) 08/30/19 22:05 Ur Propoxyphene Screen Not Detected (NotDetected) 08/30/19 22:05 Ur Barbiturates Screen Not Detected (NotDetected) 08/30/19 22:05 U Tricyclic Antidepress Detected (NotDetected) H 08/30/19 22:05 Ur Phencyclidine Scrn Not Detected (NotDetected) 08/30/19 22:05 Ur Amphetamines Screen Not Detected (NotDetected) 08/30/19 22:05 U Methamphetamines Scrn Not Detected (NotDetected) 08/30/19 22:05 U Benzodiazepines Scrn Not Detected (NotDetected) 08/30/19 22:05 Urine Cocaine Screen Not Detected (NotDetected) 08/30/19 22:05 U Marijuana (THC) Screen Not Detected (NotDetected) 08/30/19 22:05 08/31/19 11:24 IDENTIFYING DATA: Patient is a 23-year-old female who currently lives with her mother is engaged has no kids and collects Social Security. HPI: Patient presented to the hospital yesterday with a complaint of depression and suicidal thoughts. Patient has a chronic history of bipolar disorder and was admitted to the mental health unit. Patient was agreeable to the interview today by insurance underwriter sales and was appropriate and cooperative. She states that she has been feeling depressed for the past 2 weeks and states that she has several different stressors including her parents getting recently and also getting engaged one month ago. She states that her fianc is "very needy" and states that he is also attention seeking. She states that she has been getting into several different arguments with him and has been feeling depressed and having anhedonia. She states that yesterday one of her friends came up from [place] and when they were all together she states that "something he s aid made me really upset" and she claims that after that she began feeling suicidal. She states that she detected her therapist who recommended to come to the hospital. The patient states that she had a plan to cut her wrist however did not do this. She states that she has anxiety at this time. She states that she's been sleeping "too much" sleeping over 12 hours a day for the past year. She states that she does have manic episodes and the last one was 2 days ago where she "talks very fast and has a lot of racing thoughts" that typically last 1 day. She states that at this time she has fleeting thoughts of suicide however no plan. Patient denies any homicidal ideations intent or plan. At this time patient denies any auditory or visual hallucinations. Patient admits to using no recreational drugs at this time and denies using any cigarettes. PAST PSYCHIATRIC HISTORY: Patient states that bipolar disorder and anxiety. And is currently on Clozaril, trazodone, Zoloft, Ambien which are her home medications. Patient has had several different psychiatric admissions and her last admission to the mental health unit was in March 2017. Patient states that she follows up at [facility] in [place] with Dr. Bustillo. She has a history of over 10 overdose suicide attempt. PMH:denies ALLERGIES: as per EMR CHEMICAL DEPENDENCY HISTORY: as per HPI FAMILY PSYCHIATRIC/SUBSTANCE USE HISTORY: He ate that her mother has anxiety and bipolar disorder. SOCIAL HISTORY: Patient was born and raised in [place] and states that he completed high school. She claims that she currently lives with her mother is engaged and has no kids and collects Social Security. She states that she is starting college in late August of this year. She denies any legal history. MENTAL STATUS EXAM: General Appearance: Patient appears to be overweight, stated age is alert, directable, and attempts to cooperate. Patient appears to have poor hygiene and grooming. Behavior: Patient is seated without any agitated behavior. Attempts to be cooperative and appropriate. Speech: Patient's speech is fluent and nonpressured. Mood/Affect: Patient reports their mood is depressed and anxious, affect is c ongruent and constricted. Suicidality/Homicidality: Patient denies having any homicidal ideation intent or plan. But is still fleeting thoughts of suicide however no intent or plan at this time. Perceptions: Patient denies any visual hallucinations and denies any auditory hallucinations Though content/process: There is no evidence of any delusional thought content and thought process is linear and goal-directed. [place]. Memory and concentration: AOX3, grossly intact for the purposes of this session. Can spell "WORLD" backwards Judgment and insight: poor STRENGTHS/WEAKNESSES: strength is that patient is resilient. Weakness is that patient has poor judgment and has chronic mental illness INTELLECT: average IMPRESSIONS: Bipolar disorder, currently depressed episode Anxiety disorder unspecified Personality disorder unspecified, rule out borderline personality disorder. PLAN: -Patient is admitted under voluntary status to MHU for stabilization of psychiatric symptoms and safety. Patient signed adult voluntary form and medication consent and is placed in patient's chart. -Medications : Will start patient on her home dose of Clozaril 300 mg daily at bedtime for mood stabilization/psychosis, her home dose of trazodone 100 mg nightly for insomnia/mood. Patient's Zoloft was switched to daily dosing 50 mg for mood/anxiety which can be titrated up as needed. Ambien was discontinued. -Ativan and Geodon PRN for agitation/aggression -Patient was informed of the risks, benefits and side effects of the medication and patient verbally consented to taking the medications. Patient signed med consent form and was placed in chart. -Internal Medicine consult to perform medical evaluation and physical. -NRT -not needed as patient does not smoke -SW on board for discharge planning. Encourage patient to participate in groups to work on coping skills.
[2019-08-31] MEDS: SERTRALINE 50 MG TAB PO SCH ×3 (11:43→20:57)
[2019-08-31 12:00] LABS: Hemoglobin A1C 5.7 % (4.0-6.0)
[2019-08-31] MEDS: MAG HYDROX/AL HYDROX/SIMETH 30 ML CUP PO PRN (14:26)
[2019-09-01 07:26] LABS: Basophils % (A) 0 %; Eosinophils % (A) 0 %; HCT 38.2 % (34.0-46.0); Hypochromasia Slight; Lymphocytes # (A) 2.5 k/uL (1.0-4.8); Lymphocytes % (A) 39 %; MCH 26.7 pg (25.0-35.0); MCHC 31.4 g/dL (31.0-37.0); MCV 84.9 fL (80.0-100.0); Mean Platelet Volume 8.2; Monocytes # (A) 0.5 k/uL (0-1.0); Monocytes % (A) 7 %; Neutrophils # (A) 3.3 k/uL (1.3-7.7); Neutrophils % (A) 51 %; Platelet Count 258 k/uL (150-450); RDW 14.6 % (11.5-15.5); WBC 6.5 k/uL (3.8-10.6)
[2019-09-01 07:36] LABS: ALT 36 U/L (4-34); AST 31 U/L (14-36); African American GFR (CKD) >90 (>60 ml/min/1.73 sqM); Albumin 4.3 g/dL (3.5-5.0); Alkaline Phosphatase 73 U/L (38-126); Anion Gap 9 mmol/L; Blood Urea Nitrogen 12 mg/dL (7-17); Calcium 9.4 mg/dL (8.4-10.2); Carbon Dioxide 27 mmol/L (22-30); Chloride 107 mmol/L (98-107); Cholesterol 174 mg/dL (<200); Glucose 91 mg/dL (74-99); HDL Cholesterol 52 mg/dL (40-60); LDL Cholesterol,Calculated 98 mg/dL (0-99); Non-African American GFR(CKD) 86 (>60 ml/min/1.73 sqM); Potassium 4.1 mmol/L (3.5-5.1); Sodium 143 mmol/L (137-145); Total Bilirubin 0.3 mg/dL (0.2-1.3); Total Protein 7.4 g/dL (6.3-8.2); Triglycerides 122 mg/dL (<150)
[2019-09-01] MEDS: SERTRALINE 50 MG TAB PO SCH (08:30)
[2019-09-01] MEDS ORDERED: SERTRALINE 50 MG TAB PO SCH (09:00)
--- NOTE | 2019-09-01 11:17 | P.PN ---
Progress Note - Text Progress Note Date: 09/01/19 Interval history: Patient was seen after participating in group this morning and was directable and agreeable to speak with health technical writer. Patient appeared to be calmer today and claims that her mood has been gradually improving on the current medications. Patient was asking about discharge and also having a family meeting. She states that her suicidal thoughts have been improving. She states that she is talking with other patients on the unit and try to attend group as best she can. She did state that she had a difficult time sleeping last night and required Ativan. Patient was agreeable to have her trazodone increased for tonight. She states that she has a fair appetite. At this time patient denies any suicidal or homicidal ideations intent or plan. Denies any Auditory or visual hallucinations. Patient denies any side effects from the medications and has been compliant with meds. Mental status exam: General Appearance: Patient appears to be overweight, stated age is alert, directable, and attempts to cooperate. Patient appears to have improving hygiene and grooming. Behavior: Patient is seated without any agitated behavior. Attempts to be cooperative and appropriate. Speech: Patient's speech is fluent and nonpressured. Mood/Affect: Patient reports their mood is improving mildly, affect is congruent and constricted. Suicidality/Homicidality: Patient denies having any homicidal ideation intent or plan. Improving thoughts of suicide, denies any at this time no intent or plan. Perceptions: Patient denies any visual hallucinations and denies any auditory hallucinations Though content/process: There is no evidence of any delusional thought content and thought process is linear and goal-directed. [place]. Memory and concentration: AOX3, grossly intact for the purposes of this session. Judgment and insight: poor, mildly improving. Assessment/Plan: Continue with current diagnosis. Patient continues to meet criteria for inpatient psychiatric admission for symptom stabilization and safety.Patient will be maintained on current psychotropic medication regimen with the exception of increasing trazodone to 200 mg nightly for insomnia/mood. Monitor for medication compliance and for any psychotropic medication side effects. Will continue to monitor ongoing response to treatment. Encouraged participation in milieu.
[2019-09-01] MEDS: cloZAPine 100 MG TAB PO SCH (21:48)
[2019-09-01] MEDS: traZODone HCL 100 MG TAB PO SCH (21:49)
[2019-09-02 06:36] VITALS: RESP 16
[2019-09-02] MEDS: SERTRALINE 50 MG TAB PO SCH (09:25)
--- NOTE | 2019-09-02 10:48 | P.PN ---
Progress Note - Text Interval history: The patient is found in her room she follows me to an interview room. She reports that her mood is better. She was admitted over the weekend for acute suicidal ideation. She does have a history of several admissions to the mental health unit. She reports that she has been attending groups and things are getting better. We reviewed her psychotropic medication she has no questions or concerns. He feels that the clozapine has been instrumental in stabilizing her mood over the years. For the most part she has been attending group she was able to sleep last night. Laboratory values reviewed. Mental status exam: The patient is an overweight female appearing her stated age. She is dressed in her own clothing hygiene grooming adequate. Eye contact is appropriate. Speech is fluent and spontaneous at times but mainly responsive to questions. She demonstrates no verbal or physical aggressiveness she demonstrates no involuntary repetitive movements. She indicates her mood is improving she reports feeling safe she is endorsing no self-injurious thoughts such as cutting. No homicidal ideation intent or plan. She is endorsing no auditory or visual hallucinations or specific delusions. There is no observed evidence of psychosis hypomania or melani. Insight and judgment improving. Plan: This patient is a 23-year-old female who was admitted with acute suicidal ideation. She reports that her mood is stabilizing she feels that she is navigating through this most recent crisis. Social work will reach out to her mother whom she resides with. We'll monitor her for safety. If she continues to demonstrate improvement/stability we will consider discharging her in the next 1-2 days.
[2019-09-02] MEDS: MAG HYDROX/AL HYDROX/SIMETH 30 ML CUP PO PRN ×2 (15:10→20:00)
[2019-09-02] MEDS: cloZAPine 100 MG TAB PO SCH (20:38)
[2019-09-02] MEDS: traZODone HCL 100 MG TAB PO SCH (20:38)
[2019-09-02] MEDS: LORazepam 1 MG TAB PO PRN (21:38)
[2019-09-03 06:49] VITALS: BP 99/61; PULSE 83; TEMP 98.4
[2019-09-03 08:26] LABS: Clozapine (Clozaril) 813 ng/mL (200-700); Norclozapine 468 ng/mL (200-700)
[2019-09-03] MEDS: SERTRALINE 50 MG TAB PO SCH (08:44)
[2019-09-03] MEDS: MAG HYDROX/AL HYDROX/SIMETH 30 ML CUP PO PRN (09:58)
--- NOTE | 2019-09-03 11:32 | P.DS ---
Providers Date of admission: 08/31/19 00:16 Expected date of discharge: 09/03/19 Attending physician: Vamsi Hameed Consults: 08/31/19 00:22 Consult Physician Routine Consulting Provider: Danny Boyle Consult Reason/Comments: H&P for mental health admission Do you want consulting provider notified?: Yes Primary care physician: Vitor Hinson - Discharge Diagnosis(es) (1) Bipolar disorder Current Visit: Yes Status: Acute Priority: High (2) Anxiety Current Visit: Yes Status: Acute Priority: Medium Hospital Course: Brief summary of admission note: This patient is a 23-year-old single female who was admitted to the mental health unit through the emergency room with a complaint of depressive symptoms and suicidal ideation. The patient reported a history of bipolar disorder. The patient was seen by Dr. Johnson. The patient described to him that he was overwhelmed with stressors at home related to her fianc. She indicated they were arguing more frequently. The patient described having a plan of cutting her wrist she described having more feelings of anxiety. For full details please refer to the psychiatric evaluation dated 08/31/2019. Summary of hospital course: The patient was admitted to the mental health unit voluntarily. She was assessed by Dr. Johnson I assume care of the patient starting yesterday. The patient was continued on her Clozaril the Zoloft was continued but moved to a daytime dosing and trazodone was increased. The patient states that her mood significantly improved during the short period that she has been hospitalized. Social work has been able to contact the patient's mother whom the patient lives with. The patient's mother feels the patient has stabilized and is appropriate for return home. The patient was seen by internal medicine for routine history and physical exam. Social work met with the patient to complete a psychosocial assessment for discharge planning purposes. The patient has been attending groups she has demonstrated no behavioral disturbances. She indicates she he has no hopelessness thinking and no suicidal ideation intent or plan. She states she plans to return to her counselor and they will continue working on DBT techniques. Mental status exam: The patient is alert she stressor own clothing hygiene grooming are good. Eye contact is appropriate speech is fluent spontaneous nonpressured. She reports no hopelessness thinking no suicidal ideation intent or plan and no homicidal ideation intent or plan. She is reporting no auditory or visual hallucinations or any specific delusions there is no observed evidence of psychosis. She demonstrates no tangential thinking loose associations or flight of ideas there is no evidence of hypomania or melani. She demonstrates no verbal or physical aggressiveness there is no evidence of involuntary repetitive movements. Affect is appropriately expressive and she appears euthymic she states her mood is good today. She spontaneously describes future oriented thinking. Impressions 1. Bipolar disorder most recent depressed, anxiety and specified, rule out borderline personality disorder traits Plan: The patient will be discharged mental health unit today she will return home residing with her mother. The patient will continue on clozapine 300 mg at bedtime, Zoloft 50 mg daily, trazodone 200 mg at bedtime. She will follow-up with her outpatient clinician social work will arrange for outpatient mental health follow-up appointments. At this time the patient's poses no imminent safety risk she is appropriate for transition back to outpatient care. She is instructed to return to the hospital with any acute safety concerns. Patient Condition at Discharge: Stable Plan - Discharge Summary New Discharge Prescriptions: New traZODone HCL [Desyrel] 200 mg PO HS #60 tab Sertraline [Zoloft] 50 mg PO DAILY #30 tab Continue Calcium Carbonate [Tums] 500 - 1,000 mg PO TID PRN PRN Reason: Indigestion cloZAPine [Clozaril] 300 mg PO HS #45 tab Discontinued Sertraline [Zoloft] 50 mg PO HS Ibuprofen [Motrin Ib] 800 mg PO Q6H PRN PRN Reason: Pain Zolpidem [Ambien] 5 mg PO HS Ibuprofen 800 mg PO Q8H PRN 7 Days #21 tablet PRN Reason: Pain metroNIDAZOLE [Flagyl] 500 mg PO BID #14 tab No Action predniSONE 50 mg PO DAILY 4 Days #4 tab Discharge Medication List Calcium Carbonate [Tums] 500 - 1,000 mg PO TID PRN 01/07/19 [History] predniSONE 50 mg PO DAILY 4 Days #4 tab 01/08/19 [Rx] Sertraline [Zoloft] 50 mg PO DAILY #30 tab 09/03/19 [Rx] cloZAPine [Clozaril] 300 mg PO HS #45 tab 09/03/19 [Rx] traZODone HCL [Desyrel] 200 mg PO HS #60 tab 09/03/19 [Rx] Follow up Appointment(s)/Referral(s): Psychiatry, [facility] [Other] - 09/12/19 12:45 pm ([facility]) [facility] [Outside] - 09/10/19 2:30 pm (Lena please dereck in yoru car when you arrive Lena will call you when it is time for your appointmetn and you must wear a mask) Vitor Hinson [Primary Care Provider] - 1-2 days Activity/Diet/Wound Care/Special Instructions: Activity and diet as tolerated. Avoid the use of street drugs and alcohol. Take all medications as prescribed. When you are in need of refills on your medications please contact your medical provider and/or outpatient psychiatrist to have this done. Please go to scheduled outpatient appointment for aftercare treatment. If symptoms return or become worse, call the crisis line at and/or go to the nearest emergency room for evaluation.
== END 2019-09-03 13:10 | disposition home or self-care (01) | DRG 885 ==
LOC: EC 21:22 → 3MHU 08-31 00:16
PROVIDERS: ADMIT Psychiatry & Neurology Psychiatry; ATTEND Psychiatry & Neurology Psychiatry
DX: F31.30 Bipolar disorder, current episode depressed, mild or moderate severity, unspecified (principal); R45.851 Suicidal ideations; F41.9 Anxiety disorder, unspecified; D50.0 Iron deficiency anemia secondary to blood loss (chronic); J45.909 Unspecified asthma, uncomplicated; G89.29 Other chronic pain; M54.5 Low back pain; N92.0 Excessive and frequent menstruation with regular cycle; F32.81 Premenstrual dysphoric disorder; G47.00 Insomnia, unspecified; E66.3 Overweight; Z68.37 Body mass index [BMI] 37.0-37.9, adult; Z79.2 Long term (current) use of antibiotics; Z79.52 Long term (current) use of systemic steroids; Z79.899 Other long term (current) drug therapy; Z88.0 Allergy status to penicillin; Z87.891 Personal history of nicotine dependence; Z91.5 Personal history of self-harm; Z80.8 Family history of malignant neoplasm of other organs or systems
CPT/HCPCS: 80053; 80061; 80159; 80306; 81001; 81025; 82075; 83036; 84443; 85025; 99285

== ENCOUNTER 2020-02-12 19:33 | Emergency (ER) | payer OTHER ==
[2020-02-12 20:56] LABS: Basophils % (A) 0 %; Eosinophils % (A) 0 %; HCT 37.7 % (34.0-46.0); HGB 11.8 gm/dL (11.4-16.0); Lymphocytes # (A) 1.6 k/uL (1.0-4.8); Lymphocytes % (A) 24 %; MCH 25.6 pg (25.0-35.0); MCHC 31.4 g/dL (31.0-37.0); MCV 81.4 fL (80.0-100.0); Mean Platelet Volume 7.9; Monocytes # (A) 0.3 k/uL (0-1.0); Monocytes % (A) 5 %; Neutrophils # (A) 4.8 k/uL (1.3-7.7); Neutrophils % (A) 70 %; Platelet Count 267 k/uL (150-450); RBC 4.63 m/uL (3.80-5.40); RDW 14.3 % (11.5-15.5); WBC 6.9 k/uL (3.8-10.6)
[2020-02-12 21:05] LABS: ALT 39 U/L (4-34); AST 34 U/L (14-36); African American GFR (CKD) >90 (>60 ml/min/1.73 sqM); Albumin 4.3 g/dL (3.5-5.0); Alkaline Phosphatase 76 U/L (38-126); Anion Gap 9 mmol/L; Blood Urea Nitrogen 14 mg/dL (7-17); Calcium 9.3 mg/dL (8.4-10.2); Carbon Dioxide 24 mmol/L (22-30); Chloride 103 mmol/L (98-107); Glucose 151 mg/dL (74-99); Magnesium 1.8 mg/dL (1.6-2.3); Non-African American GFR(CKD) >90 (>60 ml/min/1.73 sqM); Potassium 3.6 mmol/L (3.5-5.1); Sodium 136 mmol/L (137-145); Total Bilirubin 0.3 mg/dL (0.2-1.3); Total Protein 7.4 g/dL (6.3-8.2)
[2020-02-12 21:14] LABS: Appearance,Urine Clear (Clear); Bacteria,Urine Rare /hpf; Bilirubin,Urine Negative (Negative); Blood,Urine Negative (Negative); Color,Urine Yellow; Glucose,Urine (UA) Negative (Negative); Hyaline Casts,Urine 1 /lpf (0-2); Ketones,Urine Trace (Negative); Leukocyte Esterase,Urine Small (Negative); Mucus,Urine Rare /hpf; Nitrite,Urine Negative (Negative); PH, Urine 5.5 (5.0-8.0); Protein,Urine Negative (Negative); RBC,Urine <1 /hpf (0-5); Specific Gravity,Urine 1.011 (1.001-1.035); Squamous Epithelial Cell,Urine 4 /hpf (0-4); Urobilinogen,Urine <2.0 mg/dL (<2.0); WBC,Urine 2 /hpf (0-5)
[2020-02-12 21:20] LABS: Partial Thromboplastin Time 25.6 sec (22.0-30.0); Prothrombin Time 10.2 sec (9.0-12.0)
[2020-02-12 21:25] LABS: Amphetamine Screen,Urine Not Detected (NotDetected); Barbiturate Screen,Urine Not Detected (NotDetected); Benzodiazepines Screen,Urine Detected (NotDetected); Cocaine Screen,Urine Not Detected (NotDetected); Methadone Screen, Urine Not Detected (NotDetected); Opiate Screen,Urine Not Detected (NotDetected); Oxycodone Screen, Urine Not Detected (NotDetected); Phencyclidine Screen,Urine Not Detected (NotDetected); Tricyclic Antidepressant,Urine Detected (NotDetected); Urn Cannabinoid Scrn Not Detected (NotDetected)
--- NOTE | 2020-02-12 21:33 | XR ---
EXAMINATION TYPE: XR chest 2V DATE OF EXAM: 02/12/2020 COMPARISON: 01/07/2019 HISTORY: Chest pain TECHNIQUE: 2 views FINDINGS: Heart and mediastinum are normal. Lungs are clear. Diaphragm is normal. Bony thorax appears normal. IMPRESSION: Normal chest. No change.
[2020-02-12 21:37] LABS: D-Dimer 0.19 mg/L FEU (<0.60)
[2020-02-12] MEDS ORDERED: IBUPROFEN 400 MG TAB PO STA (21:45)
--- NOTE | 2020-02-12 22:37 | ED ---
General Adult HPI - General Chief complaint: Arrhythmia/Palpitations Stated complaint: Chest pain Time Seen by Provider: 02/12/20 20:18 Source: patient, RN notes reviewed, old records reviewed Mode of arrival: ambulatory Limitations: no limitations - History of Present Illness Initial comments: 24-year-old female patient the ED. Patient reports that she feels her heart was racing and she is having some chest pressure. Patient has any shortness of breath. Denies any other acute complaints. Systemic: Pt denies fatigue, fever/chills, rash. Pt denies weakness, night sweats, weight loss. Neuro: Pt denies headache, visual disturbances, syncope or pre-syncope. HEENT: Pt denies ocular discharge or irritation, otalgia, rhinorrhea, pharyngi tis or notable lymphadenopathy. Cardiopulmonary: Pt denies SOB, heart palpitations, dyspnea on exertion. Abdominal/GI: Pt denies abdominal pain, n/v/d. : Pt denies dysuria, burning w/ urination, frequency/urgency. Denies new onset urinary or bowel incontinence. MSK: Pt denies myalgia, loss of strength or function in extremities. Neuro: Pt denies new onset weakness, paresthesias. - Related Data Home Medications Medication Instructions Recorded Confirmed LORazepam [Ativan] 0.5 mg PO DAILY PRN 02/12/20 02/12/20 Zolpidem Tartrate [Ambien] 10 mg PO HS PRN 02/12/20 02/12/20 Previous Rx's Medication Instructions Recorded cloZAPine [Clozaril] 300 mg PO HS #45 tab 09/03/19 traZODone HCL [Desyrel] 200 mg PO HS #60 tab 09/03/19 Allergies Allergy/AdvReac Type Severity Reaction Status Date / Time amoxicillin Allergy Rash/Hives Verified 02/12/20 21:11 metronidazole [From Flagyl] Allergy Nausea & Verified 02/12/20 21:11 Vomiting Review of Systems ROS Statement: Those systems with pertinent positive or pertinent negative responses have been documented in the HPI. ROS Other: All systems not noted in ROS Statement are negative. 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 History of Any Multi-Drug Resistant Organisms: None Reported Past Surgical History: No Surgical Hx Reported Past Anesthesia/Blood Transfusion Reactions: No Reported Reaction, Motion Sickness Past Psychological History: Anxiety, Bipolar, Depression Past Alcohol Use History: Occasional Past Drug Use History: None Reported - Past Family History Father Family Medical History: Cancer Additional Family Medical History / Comment(s): Father had thyroid cancer with surgery and radioactive iodine. Mother Family Medical History: Cancer Additional Family Medical History / Comment(s): Mother had endometrial polyp cancer with hysterectomy. General Exam - General Exam Comments Initial Comments: Constitutional: NAD, AOX3, Pt has pleasant affect. HEENT: NC/AT, trachea midline, neck supple, no lymphadenopathy. Posterior pharynx non erythematous, without exudates. External ears appear normal, without discharge. Mucous membranes moist. Eyes PERRLA, EOM intact. There is no scleral icterus. No pallor noted. Cardiopulmonary: RRR, no murmurs, rubs or gallops, no JVD noted. Lungs CTAB in anterior and posterior gates. No peripheral edema. Abdominal exam: Abdomen soft and non-distended. Abdomen non-tender to palpation in all 4 quadrants. Bowel sounds active in LLQ. No hepatosplenomegaly. No ecchymosis Neuro: CN II-XII grossly intact. No nuchal rigidity. MSK: No posterior calf tenderness bilaterally, homans sign negative bilaterally. Posterior tibialis and radial pulse +2 bilaterally. Sensation intact in upper and lower extremities. Full active ROM in upper and lower extremities, 5/5 stregnth. Limitations: no limitations Course Vital Signs 02/12/20 02/12/20 19:41 20:44 Temperature 97.8 F 98.0 F Pulse Rate 138 H 101 H Respiratory 20 18 Rate Blood Pressure 126/86 122/78 O2 Sat by Pulse 98 99 Oximetry Medical Decision Making - Medical Decision Making 24-year-old female patient the ED with heart palpitations over chest pressure. Patient vital signs are stable, afebrile. Physical exam displayed no acute pathology. Laboratory investigations are unremarkable. D-dimer is negative. Upon negative. EKG is nonischemic. Patient is totally asymptomatic. Of discharge and outpatient follow-up and return precautions. Case discussed with Dr. Dior. - Lab Data Result diagrams: 02/12/20 20:31 02/12/20 20:31 Lab Results 02/12/20 02/12/20 02/12/20 Range/Units 20:25 20:31 20:31 WBC 6.9 (3.8-10.6) k/uL RBC 4.63 (3.80-5.40) m/uL Hgb 11.8 (11.4-16.0) gm/dL Hct 37.7 (34.0-46.0) % MCV 81.4 (80.0-100.0) fL MCH 25.6 (25.0-35.0) pg MCHC 31.4 (31.0-37.0) g/dL RDW 14.3 (11.5-15.5) % Plt Count 267 (150-450) k/uL MPV 7.9 Neutrophils % 70 % Lymphocytes % 24 % Monocytes % 5 % Eosinophils % 0 % Basophils % 0 % Neutrophils # 4.8 (1.3-7.7) k/uL Lymphocytes # 1.6 (1.0-4.8) k/uL Monocytes # 0.3 (0-1.0) k/uL Eosinophils # 0.0 (0-0.7) k/uL Basophils # 0.0 (0-0.2) k/uL PT (9.0-12.0) sec INR (<1.2) APTT (22.0-30.0) sec D-Dimer (<0.60) mg/L FEU Sodium (137-145) mmol/L Potassium (3.5-5.1) mmol/L Chloride (98-107) mmol/L Carbon Dioxide (22-30) mmol/L Anion Gap mmol/L BUN (7-17) mg/dL Creatinine (0.52-1.04) mg/dL Est GFR (CKD-EPI)AfAm (>60 ml/min/1.73 sqM) Est GFR (CKD-EPI)NonAf (>60 ml/min/1.73 sqM) Glucose (74-99) mg/dL Calcium (8.4-10.2) mg/dL Magnesium (1.6-2.3) mg/dL Total Bilirubin (0.2-1.3) mg/dL AST (14-36) U/L ALT (4-34) U/L Alkaline Phosphatase (38-126) U/L Troponin I (0.000-0.034) ng/mL Total Protein (6.3-8.2) g/dL Albumin (3.5-5.0) g/dL Urine Color Yellow Urine Appearance Clear (Clear) Urine pH 5.5 (5.0-8.0) Ur Specific [place] 1.011 (1.001-1.035) Urine Protein Negative (Negative) Urine Glucose (UA) Negative (Negative) Urine Ketones Trace H (Negative) Urine Blood Negative (Negative) Urine Nitrite Negative (Negative) Urine Bilirubin Negative (Negative) Urine Urobilinogen <2.0 (<2.0) mg/dL Ur Leukocyte Esterase Small H (Negative) Urine RBC <1 (0-5) /hpf Urine WBC 2 (0-5) /hpf Ur Squamous Epith Cells 4 (0-4) /hpf Urine Bacteria Rare H (None) /hpf Hyaline Casts 1 (0-2) /lpf Urine Mucus Rare H (None) /hpf Urine HCG, Qual Not Detected (Not Detectd) Urine Opiates Screen Not Detected (NotDetected) Ur Oxycodone Screen Not Detected (NotDetected) Urine Methadone Screen Not Detected (NotDetected) Ur Propoxyphene Screen Not Detected (NotDetected) Ur Barbiturates Screen Not Detected (NotDetected) U Tricyclic Antidepress Detected H (NotDetected) Ur Phencyclidine Scrn Not Detected (NotDetected) Ur Amphetamines Screen Not Detected (NotDetected) U Methamphetamines Scrn Not Detected (NotDetected) U Benzodiazepines Scrn Detected H (NotDetected) Urine Cocaine Screen Not Detected (NotDetected) U Marijuana (THC) Screen Not Detected (NotDetected) 02/12/20 02/12/20 02/12/20 Range/Units 20:31 20:31 20:31 WBC (3.8-10.6) k/uL RBC (3.80-5.40) m/uL Hgb (11.4-16.0) gm/dL Hct (34.0-46.0) % MCV (80.0-100.0) fL MCH (25.0-35.0) pg MCHC (31.0-37.0) g/dL RDW (11.5-15.5) % Plt Count (150-450) k/uL MPV Neutrophils % % Lymphocytes % % Monocytes % % Eosinophils % % Basophils % % Neutrophils # (1.3-7.7) k/uL Lymphocytes # (1.0-4.8) k/uL Monocytes # (0-1.0) k/uL Eosinophils # (0-0.7) k/uL Basophils # (0-0.2) k/uL PT 10.2 (9.0-12.0) sec INR 1.0 (<1.2) APTT 25.6 (22.0-30.0) sec D-Dimer 0.19 (<0.60) mg/L FEU Sodium 136 L (137-145) mmol/L Potassium 3.6 (3.5-5.1) mmol/L Chloride 103 (98-107) mmol/L Carbon Dioxide 24 (22-30) mmol/L Anion Gap 9 mmol/L BUN 14 (7-17) mg/dL Creatinine 0.80 (0.52-1.04) mg/dL Est GFR (CKD-EPI)AfAm >90 (>60 ml/min/1.73 sqM) Est GFR (CKD-EPI)NonAf >90 (>60 ml/min/1.73 sqM) Glucose 151 H (74-99) mg/dL Calcium 9.3 (8.4-10.2) mg/dL Magnesium 1.8 (1.6-2.3) mg/dL Total Bilirubin 0.3 (0.2-1.3) mg/dL AST 34 (14-36) U/L ALT 39 H (4-34) U/L Alkaline Phosphatase 76 (38-126) U/L Troponin I <0.012 (0.000-0.034) ng/mL Total Protein 7.4 (6.3-8.2) g/dL Albumin 4.3 (3.5-5.0) g/dL Urine Color Urine Appearance (Clear) Urine pH (5.0-8.0) Ur Specific [place] (1.001-1.035) Urine Protein (Negative) Urine Glucose (UA) (Negative) Urine Ketones (Negative) Urine Blood (Negative) Urine Nitrite (Negative) Urine Bilirubin (Negative) Urine Urobilinogen (<2.0) mg/dL Ur Leukocyte Esterase (Negative) Urine RBC (0-5) /hpf Urine WBC (0-5) /hpf Ur Squamous Epith Cells (0-4) /hpf Urine Bacteria (None) /hpf Hyaline Casts (0-2) /lpf Urine Mucus (None) /hpf Urine HCG, Qual (Not Detectd) Urine Opiates Screen (NotDetected) Ur Oxycodone Screen (NotDetected) Urine Methadone Screen (NotDetected) Ur Propoxyphene Screen (NotDetected) Ur Barbiturates Screen (NotDetected) U Tricyclic Antidepress (NotDetected) Ur Phencyclidine Scrn (NotDetected) Ur Amphetamines Screen (NotDetected) U Methamphetamines Scrn (NotDetected) U Benzodiazepines Scrn (NotDetected) Urine Cocaine Screen (NotDetected) U Marijuana (THC) Screen (NotDetected) - EKG Data -: EKG Interpreted by Me (and Dr. Dior ) EKG Comments: 1) ventricular rate 119, HI interval 152, QRS 86, QT/QTC 324/455. Sinus tachycardia. Nonspecific T-wave abnormality. No concern for acute ischemia. 2) Ventricular rate 121, HI interval 150, QRS 86, QT/QTc is 322/457. Sinus tachycardia. Nonspecific T-wave abnormality. No concern for acute ischemia. Disposition Clinical Impression: Palpitations Disposition: HOME SELF-CARE Condition: Stable Instructions (If sedation given, give patient instructions): Heart Palpitations (ED) Additional Instructions: Follow up with PCP tomorrow. Return to ED with any worsening symptmos. Is patient prescribed a controlled substance at d/c from ED?: No Referrals: Vitor Hinson [Primary Care Provider] - 1-2 days
[2020-02-12 23:11] VITALS: BP 118/82; PULSE 98; RESP 16; TEMP 98.4
== END 2020-02-12 23:05 | disposition home or self-care (01) ==
LOC: EC 19:33
DX: R00.2 Palpitations (principal); R07.89 Other chest pain; F41.9 Anxiety disorder, unspecified; F31.9 Bipolar disorder, unspecified; Z88.0 Allergy status to penicillin; Z88.1 Allergy status to other antibiotic agents
CPT/HCPCS: 36415; 71046; 80053; 80306; 81001; 81025; 83735; 84484; 85025; 85379; 85610; 85730; 93005; 99285

== ENCOUNTER → 2021-04-22 | Outpatient (CLI) | payer OTHER ==
[2021-04-22 19:36] LABS: Basophils # (A) 0.02 X 10*3/uL (0.00-0.10); Basophils % (A) 0.5 %; Eosinophils # (A) 0 X 10*3/uL (0.04-0.35); Eosinophils % (A) 0 %; HCT 43.9 % (37.2-46.3); HGB 14.2 g/dL (12.0-15.0); Lymphocytes # (A) 1.48 X 10*3/uL (0.90-5.00); Lymphocytes % (A) 34.3 %; MCH 29.2 pg (27.0-32.0); MCHC 32.3 g/dL (32.0-37.0); MCV 90.1 fL (80.0-97.0); Mean Platelet Volume 11.2 fL (9.5-12.2); Monocytes # (A) 0.39 X 10*3/uL (0.20-1.00); Neutrophils # (A) 2.41 X 10*3/uL (1.80-7.70); Platelet Count 238 X 10*3/uL (140-440); RBC 4.87 X 10*6/uL (4.10-5.20); RDW 12.4 % (11.5-14.5); WBC 4.31 X 10*3/uL (4.50-10.00)
== END | disposition home or self-care (01) ==
LOC: LABWHC1 12:24
PROVIDERS: ATTEND Nurse Practitioner Psychiatric/Mental Health
DX: F31.4 Bipolar disorder, current episode depressed, severe, without psychotic features (principal)
CPT/HCPCS: 36415; 80159; 85025

== ENCOUNTER → 2021-05-19 | Outpatient (CLI) | payer OTHER ==
[2021-05-19 19:01] LABS: Basophils # (A) 0.02 X 10*3/uL (0.00-0.10); Basophils % (A) 0.4 %; Eosinophils # (A) 0 X 10*3/uL (0.04-0.35); Eosinophils % (A) 0 %; HCT 43.5 % (37.2-46.3); HGB 13.9 g/dL (12.0-15.0); Immature Grans, Automated 0.4 %; Lymphocytes # (A) 1.22 X 10*3/uL (0.90-5.00); MCH 28.8 pg (27.0-32.0); MCV 90.1 fL (80.0-97.0); Mean Platelet Volume 10.9 fL (9.5-12.2); Monocytes # (A) 0.43 X 10*3/uL (0.20-1.00); Monocytes % (A) 7.7 %; NRBC Per 100 WBC 0 /100 WBCS (0.0-0.0); Neutrophils # (A) 3.86 X 10*3/uL (1.80-7.70); Neutrophils % (A) 69.5 %; Platelet Count 236 X 10*3/uL (140-440); RBC 4.83 X 10*6/uL (4.10-5.20); RDW 12.4 % (11.5-14.5); WBC 5.55 X 10*3/uL (4.50-10.00)
== END | disposition home or self-care (01) ==
LOC: LABWHC1 11:44
PROVIDERS: ATTEND Psychiatry & Neurology Psychiatry
DX: F31.4 Bipolar disorder, current episode depressed, severe, without psychotic features (principal)
CPT/HCPCS: 36415; 85025

== ENCOUNTER 2021-10-31 11:12 | Emergency (ER) | payer OTHER ==
[2021-10-31 12:05] VITALS: RESP 18
--- NOTE | 2021-10-31 12:19 | XR ---
EXAMINATION TYPE: XR chest 2V DATE OF EXAM: 10/31/2021 COMPARISON: 02/12/2020 HISTORY: 26-year-old female cough, congestion, shortness of breath, positive TECHNIQUE: PA and lateral views FINDINGS: The cardiomediastinal silhouette, aorta, and pulmonary vasculature are within normal limits. Lungs an d pleural spaces are clear. IMPRESSION: No acute cardiopulmonary process.
[2021-10-31 12:50] VITALS: BP 107/74; PULSE 97; TEMP 98.2
--- NOTE | 2021-10-31 12:53 | ED ---
General Adult HPI - General Chief complaint: Shortness of Breath Stated complaint: Covid +, SOB Time Seen by Provider: 10/31/21 12:33 Source: patient, RN notes reviewed Mode of arrival: ambulatory Limitations: no limitations - History of Present Illness Initial comments: 26-year-old female presents emergency Department with chief complaint of COVID- 19. Patient states she started symptoms on tested positive Monday. Patient states she's having worsening symptoms. Fever or chills bodyaches cough congestion minimal shortness of breath. No other associated complaints or history of lung disease. Patient states she has no renal dysfunction. - Related Data Home Medications Medication Instructions Recorded Confirmed LORazepam [Ativan] 0.5 mg PO DAILY PRN 02/12/20 02/12/20 Zolpidem Tartrate [Ambien] 10 mg PO HS PRN 02/12/20 02/12/20 Previous Rx's Medication Instructions Recorded cloZAPine [Clozaril] 300 mg PO HS #45 tab 09/03/19 traZODone HCL [Desyrel] 200 mg PO HS #60 tab 09/03/19 Nirmatrelvir/Ritonavir [Paxlovid 1 each PO BID #10 tab 10/31/21 2X150 mg-100 mg (Eua)] Ondansetron Odt [Zofran Odt] 4 mg PO Q8HR PRN #10 tab 10/31/21 Allergies Allergy/AdvReac Type Severity Reaction Status Date / Time amoxicillin Allergy Rash/Hives Verified 10/31/21 12:03 metronidazole [From Flagyl] Allergy Nausea & Verified 10/31/21 12:03 Vomiting Review of Systems ROS Statement: Those systems with pertinent positive or pertinent negative responses have been documented in the HPI. ROS Other: All systems not noted in ROS Statement are negative. 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 History of Any Multi-Drug Resistant Organisms: None Reported Past Surgical History: No Surgical Hx Reported Past Anesthesia/Blood Transfusion Reactions: No Reported Reaction, Motion Sickness Past Psychological History: Anxiety, Bipolar, Depression Past Alcohol Use History: Occasional Past Drug Use History: None Reported - Past Family History Father Family Medical History: Cancer Additional Family Medical History / Comment(s): Father had thyroid cancer with surgery and radioactive iodine. Mother Family Medical History: Cancer Additional Family Medical History / Comment(s): Mother had endometrial polyp cancer with hysterectomy. General Exam Limitations: no limitations General appearance: alert, in no apparent distress Head exam: Present: atraumatic, normocephalic, normal inspection Eye exam: Present: normal appearance, PERRL, EOMI. Absent: scleral icterus, conjunctival injection, periorbital swelling ENT exam: Present: normal exam, normal oropharynx, mucous membranes moist Neck exam: Present: normal inspection, full ROM. Absent: tenderness, meningismus, lymphadenopathy Respiratory exam: Present: normal lung sounds bilaterally, decreased breath sounds. Absent: respiratory distress, wheezes, rales, rhonchi, stridor Cardiovascular Exam: Present: regular rate, normal rhythm, normal heart sounds. Absent: systolic murmur, diastolic murmur, rubs, gallop, clicks GI/Abdominal exam: Present: soft, normal bowel sounds. Absent: distended, tenderness, guarding, rebound, rigid Course Vital Signs 10/31/21 10/31/21 10/31/21 12:03 12:05 12:56 Temperature 98.2 F 98.2 F Pulse Rate 99 97 97 Respiratory 18 18 18 Rate Blood Pressure 121/76 107/74 107/74 O2 Sat by Pulse 96 98 98 Oximetry Medical Decision Making - Medical Decision Making Patient is: 19 positive x-ray does not reveal any significant findings. Vitals are stable. Patient discharged on Paxlovid Return parameters were discussed. Disposition Clinical Impression: COVID-19 Disposition: HOME SELF-CARE Condition: Stable Instructions (If sedation given, give patient instructions): COVID-19 (Coronavirus Disease 2019) (ED) Additional Instructions: Please return to the Emergency Department if symptoms worsen or any other concerns. Prescriptions: Nirmatrelvir/Ritonavir [Paxlovid 2X150 mg-100 mg (Eua)] 1 each PO BID #10 tab Ondansetron Odt [Zofran Odt] 4 mg PO Q8HR PRN #10 tab PRN Reason: Nausea Is patient prescribed a controlled substance at d/c from ED?: No Referrals: Vitor Hinson [Primary Care Provider] - 1-2 days Time of Disposition: 12:53
== END 2021-10-31 12:57 | disposition home or self-care (01) ==
LOC: EC 11:12
DX: U07.1 COVID-19 (principal); J45.909 Unspecified asthma, uncomplicated; Z88.0 Allergy status to penicillin; Z88.6 Allergy status to analgesic agent
CPT/HCPCS: 71046

== ENCOUNTER → 2022-06-20 | Outpatient (CLI) | payer OTHER ==
[2022-06-21 05:21] LABS: Basophils # (A) 0.02 X 10*3/uL (0.00-0.10); Basophils % (A) 0.3 %; Eosinophils # (A) 0 X 10*3/uL (0.04-0.35); Eosinophils % (A) 0 %; HGB 13.5 g/dL (12.0-15.0); Immature Grans, Automated 0.5 %; Lymphocytes # (A) 1.56 X 10*3/uL (0.90-5.00); Lymphocytes % (A) 20.5 %; MCH 29.2 pg (27.0-32.0); MCHC 32.1 g/dL (32.0-37.0); MCV 90.9 fL (80.0-97.0); Mean Platelet Volume 10.5 fL (9.5-12.2); Monocytes # (A) 0.76 X 10*3/uL (0.20-1.00); NRBC Per 100 WBC 0 /100 WBCS (0.0-0.0); Neutrophils # (A) 5.23 X 10*3/uL (1.80-7.70); Neutrophils % (A) 68.7 %; Platelet Count 216 X 10*3/uL (140-440); RBC 4.62 X 10*6/uL (4.10-5.20); RDW 12.5 % (11.5-14.5); WBC 7.61 X 10*3/uL (4.50-10.00)
== END | disposition home or self-care (01) ==
LOC: LABWHC1 13:09
PROVIDERS: ATTEND Psychiatry & Neurology Psychiatry
DX: D64.9 Anemia, unspecified (principal)
CPT/HCPCS: 36415; 85025

== ENCOUNTER 2023-08-29 14:01 | Emergency (ER) | payer OTHER ==
[2023-08-29 15:10] LABS: Basophils % (A) 0 %; Eosinophils % (A) 0 %; HCT 45.4 % (34.0-46.0); HGB 14.7 gm/dL (11.4-16.0); Lymphocytes # (A) 1.2 k/uL (1.0-4.8); Lymphocytes % (A) 20 %; MCH 28.7 pg (25.0-35.0); MCHC 32.5 g/dL (31.0-37.0); MCV 88.3 fL (80.0-100.0); Mean Platelet Volume 7.5; Monocytes # (A) 0.4 k/uL (0-1.0); Monocytes % (A) 6 %; Neutrophils # (A) 4.2 k/uL (1.3-7.7); Neutrophils % (A) 71 %; Platelet Count 225 k/uL (150-450); RBC 5.14 m/uL (3.80-5.40); RDW 12.8 % (11.5-15.5); WBC 5.8 k/uL (3.8-10.6)
--- NOTE | 2023-08-29 15:10 | ED ---
Abdominal Pain HPI - General Chief Complaint: Abdominal Pain Stated Complaint: 6 wks preg, cramping Time Seen by Provider: 08/29/23 14:20 Source: patient, RN notes reviewed Mode of arrival: ambulatory Limitations: no limitations - History of Present Illness Initial Comments: This is a 27-year-old female with past history of bipolar disorder anxiety presents emergency department chief complaint of abdominal cramping and anxiety. Patient states that she took an at-home test Monday which was positive, patient estimates that she is roughly 6 weeks . Patient states that this morning she began experiencing pelvic cramping, denies vaginal bleeding, vaginal discharge, upper quadrant abdominal pain, dysuria, hematuria. Patient discontinued her medications on Monday at her own discretion, instructed to get hold of her psychiatrist for further intervention. Patient has not visited with OB yet, first appointment on 09/03. - Related Data Home Medications Medication Instructions Recorded Confirmed LORazepam [Ativan] 0.5 mg PO DAILY PRN 02/12/20 02/12/20 Zolpidem Tartrate [Ambien] 10 mg PO HS PRN 02/12/20 02/12/20 Previous Rx's Medication Instructions Recorded cloZAPine [Clozaril] 300 mg PO HS #45 tab 09/03/19 traZODone HCL [Desyrel] 200 mg PO HS #60 tab 09/03/19 Nirmatrelvir/Ritonavir [Paxlovid 1 each PO BID #10 tab 10/31/21 2X150 mg-100 mg (Eua)] Ondansetron Odt [Zofran Odt] 4 mg PO Q8HR PRN #10 tab 10/31/21 Allergies Allergy/AdvReac Type Severity Reaction Status Date / Time amoxicillin Allergy Rash/Hives Verified 10/31/21 12:03 metronidazole [From Flagyl] Allergy Nausea & Verified 10/31/21 12:03 Vomiting Review of Systems ROS Statement: Those systems with pertinent positive or pertinent negative responses have been documented in the HPI. ROS Other: All systems not noted in ROS Statement are negative. 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 History of Any Multi-Drug Resistant Organisms: None Reported Past Surgical History: No Surgical Hx Reported Past Anesthesia/Blood Transfusion Reactions: No Reported Reaction, Motion Sickness Past Psychological History: Anxiety, Bipolar, Depression Smoking Status: Former smoker Past Alcohol Use History: Occasional Past Drug Use History: None Reported - Past Family History Father Family Medical History: Cancer Additional Family Medical History / Comment(s): Father had thyroid cancer with surgery and radioactive iodine. Mother Family Medical History: Cancer Additional Family Medical History / Comment(s): Mother had endometrial polyp cancer with hysterectomy. General Exam Limitations: no limitations General appearance: alert, in no apparent distress Head exam: Present: atraumatic, normocephalic, normal inspection Eye exam: Present: normal appearance, PERRL, EOMI. Absent: scleral icterus, conjunctival injection, periorbital swelling ENT exam: Present: normal exam, mucous membranes moist Neck exam: Present: normal inspection. Absent: tenderness, meningismus, lymphadenopathy Respiratory exam: Present: normal lung sounds bilaterally. Absent: respiratory distress, wheezes, rales, rhonchi, stridor Cardiovascular Exam: Present: regular rate, normal rhythm, normal heart sounds. Absent: systolic murmur, diastolic murmur, rubs, gallop, clicks GI/Abdominal exam: Present: soft, tenderness (suprapubic), normal bowel sounds. Absent: distended, guarding, rebound, rigid, pulsatile mass, hernia Extremities exam: Present: normal inspection, full ROM, normal capillary refill. Absent: tenderness, pedal edema, joint swelling, calf tenderness Back exam: Present: normal inspection Neurological exam: Present: alert, oriented X3, CN II-XII intact Psychiatric exam: Present: normal affect, normal mood, anxious Skin exam: Present: warm, dry, intact, normal color. Absent: rash Course Vital Signs 08/29/23 08/29/23 08/29/23 14:27 16:03 18:22 Temperature 98.8 F 98.1 F 98.9 F Pulse Rate 99 68 80 Respiratory 18 18 16 Rate Blood Pressure 108/80 105/66 92/60 O2 Sat by Pulse 96 98 98 Oximetry 08/29/23 19:47 Temperature Pulse Rate 82 Respiratory 18 Rate Blood Pressure 110/74 O2 Sat by Pulse 97 Oximetry Medical Decision Making - Medical Decision Making Was pt. sent in by a medical professional or institution (, PA, ASSISTANT COUNTY ATTORNEY, urgent care, hospital, or [facility]...) When possible be specific @ -No Did you speak to anyone other than the patient for history (EMS, parent, family, police, friend...)? What history was obtained from this source @ -No Did you review nursing and triage notes (agree or disagree)? Why? @ -I reviewed and agree with nursing and triage notes Were old charts reviewed (outside hosp., previous admission, EMS record, old EKG, old radiological studies, urgent care reports/EKG's, [facility] records)? Report findings @ -No old charts were reviewed Differential Diagnosis (chest pain, altered mental status, abdominal pain women, abdominal pain men, vaginal bleeding, weakness, fever, dyspnea, syncope, headache, dizziness, GI bleed, back pain, seizure, CVA, palpatations, mental health, musculoskeletal)? @ -Differential Abdominal Pain Women: Appendicitis, Cholecystitis, diverticulosis, ischemic bowel, pancreatitis, hepatitis, UTI, gastroenteritis, AAA, incarcerated hernia, bowel obstruction, constipation, inflammatory bowel, hepatitis, peptic ulcer disease, splenic infarction, perforated viscus, vulvitis, ovarian torsion, PID, kidney stone, placenta abruption, this is not meant to be an all-inclusive list EKG interpreted by me (3pts min.). @ -none X-rays interpreted by me (1pt min.). @ -None done CT interpreted by me (1pt min.). @ -None done U/S interpreted by me (1pt. min.). @ -transvaginal and transabdominal ultrasound of the pelvis reveals an intrauterine gestational sac with a yolk sac measuring 5 weeks 6 days, heart rate obtained 97. What testing was considered but not performed or refused? (CT, X-rays, U/S, labs)? Why? @ -None What meds were considered but not given or refused? Why? @ -None Did you discuss the management of the patient with other professionals (professionals i.e. , PA, ASSISTANT COUNTY ATTORNEY, lab, RT, psych nurse, social sciences instructor, labour market economist, teacher, fisheries technical officer, complex case manager)? Give summary @ -No Was smoking cessation discussed for >3mins.? @ -No Was critical care preformed (if so, how long)? @ -No Were there social determinants of health that impacted care today? How? (Homelessness, low income, unemployed, alcoholism, drug addiction, transportation, low edu. Level, literacy, decrease access to med. care, prison, rehab)? @ -No Was there de-escalation of care discussed even if they declined (Discuss DNR or withdrawal of care, Hospice)? DNR status @ -No What co-morbidities impacted this encounter? (DM, HTN, Smoking, COPD, CAD, Cancer, CVA, ARF, Chemo, Hep., AIDS, mental health diagnosis, sleep apnea, morbid obesity)? @ -None Was patient admitted / discharged? Hospital course, mention meds given and route, prescriptions, significant lab abnormalities, going to OR and other pe rtinent info. @ -27-year-old female with abdominal cramping. On examination patient noted to have mild tenderness to palpation of the suprapubic area. No acute neurological deficits noted. At this time blood work will be obtained in addition to ultrasound ordered. Patient will be symptomatically treated with IV fluids and she is agreeable with this plan. CBC unremarkable, coagulation profile and CMP within normal limits. hCG 79152.7. us reveals a intrauterine gestational sac measuring 5 weeks 6 days with a heart rate of 97. Reevaluation patient states abdominal pain is markedly improved. She will be discharged with recommendation to follow-up with OB this week for further evaluation. Provided with a referral to OB due to her stating that her first appointment is not for another 3 weeks. Strict return prior discussed with the patient at bedside and she verbalized understanding. States that she has an appointment scheduled tomorrow with her psychiatrist. Reevaluation of antipsychotic medications. On my examination the patient there are no signs of tardive dyskinesia neurological deficit, No tremors. Patient stable discharge. Recommend the patient keep all scheduled outpatient appointments. Case discussed with Dr. Ariza. Undiagnosed new problem with uncertain prognosis? @ -No Drug Therapy requiring intensive monitoring for toxicity (Heparin, Nitro, Insulin, Cardizem)? @ -No Were any procedures done? @ -No Diagnosis/symptom? @ -abdominal cramping during , intrauterine 5 weeks 6 days Acute, or Chronic, or Acute on Chronic? @ -Acute Uncomplicated (without systemic symptoms) or Complicated (systemic symptoms)? @ -Uncomplicated Side effects of treatment? @ -No Exacerbation, Progression, or Severe Exacerbation? @ -No Poses a threat to life or bodily function? How? (Chest pain, [place], [place], pneumonia, PE, COPD, DKA, ARF, appy, cholecystitis, CVA, Diverticulitis, Homicidal, Suicidal, threat to staff... and all critical care pts) @ -No - Lab Data Result diagrams: 08/29/23 14:49 08/29/23 14:49 Lab Results 08/29/23 08/29/23 08/29/23 Range/Units 14:49 14:49 14:49 WBC 5.8 (3.8-10.6) k/uL RBC 5.14 (3.80-5.40) m/uL Hgb 14.7 (11.4-16.0) gm/dL Hct 45.4 (34.0-46.0) % MCV 88.3 (80.0-100.0) fL MCH 28.7 (25.0-35.0) pg MCHC 32.5 (31.0-37.0) g/dL RDW 12.8 (11.5-15.5) % Plt Count 225 (150-450) k/uL MPV 7.5 Neutrophils % 71 % Lymphocytes % 20 % Monocytes % 6 % Eosinophils % 0 % Basophils % 0 % Neutrophils # 4.2 (1.3-7.7) k/uL Lymphocytes # 1.2 (1.0-4.8) k/uL Monocytes # 0.4 (0-1.0) k/uL Eosinophils # 0.0 (0-0.7) k/uL Basophils # 0.0 (0-0.2) k/uL PT 11.5 (10.0-12.5) sec INR 1.1 (<1.2) APTT 26.8 (22.0-30.0) sec Sodium (137-145) mmol/L Potassium (3.5-5.1) mmol/L Chloride (98-107) mmol/L Carbon Dioxide (22-30) mmol/L Anion Gap mmol/L BUN (7-17) mg/dL Creatinine (0.52-1.04) mg/dL Est GFR (CKD-EPI)AfAm (>60 ml/min/1.73 sqM) Est GFR (CKD-EPI)NonAf (>60 ml/min/1.73 sqM) Glucose (74-99) mg/dL Calcium (8.4-10.2) mg/dL Magnesium (1.6-2.3) mg/dL Total Bilirubin (0.2-1.3) mg/dL AST (14-36) U/L ALT (4-34) U/L Alkaline Phosphatase (38-126) U/L Total Protein (6.3-8.2) g/dL Albumin (3.5-5.0) g/dL HCG, Quant mIU/mL Urine Color Light Yellow Urine Appearance Cloudy H (Clear) Urine pH 6.5 (5.0-8.0) Ur Specific [place] 1.014 (1.001-1.035) Urine Protein Negative (Negative) Urine Glucose (UA) Negative (Negative) Urine Ketones 1+ H (Negative) Urine Blood Negative (Negative) Urine Nitrite Negative (Negative) Urine Bilirubin Negative (Negative) Urine Urobilinogen <2.0 (<2.0) mg/dL Ur Leukocyte Esterase Small H (Negative) Urine RBC 1 (0-5) /hpf Urine WBC 2 (0-5) /hpf Ur Squamous Epith Cells 6 H (0-4) /hpf Urine Bacteria Rare H (None) /hpf Urine Mucus Many H (None) /hpf Blood Type Blood Type Recheck Bld Type Recheck Status 08/29/23 08/29/23 Range/Units 14:49 14:58 WBC (3.8-10.6) k/uL RBC (3.80-5.40) m/uL Hgb (11.4-16.0) gm/dL Hct (34.0-46.0) % MCV (80.0-100.0) fL MCH (25.0-35.0) pg MCHC (31.0-37.0) g/dL RDW (11.5-15.5) % Plt Count (150-450) k/uL MPV Neutrophils % % Lymphocytes % % Monocytes % % Eosinophils % % Basophils % % Neutrophils # (1.3-7.7) k/uL Lymphocytes # (1.0-4.8) k/uL Monocytes # (0-1.0) k/uL Eosinophils # (0-0.7) k/uL Basophils # (0-0.2) k/uL PT (10.0-12.5) sec INR (<1.2) APTT (22.0-30.0) sec Sodium 137 (137-145) mmol/L Potassium 3.8 (3.5-5.1) mmol/L Chloride 108 H (98-107) mmol/L Carbon Dioxide 21 L (22-30) mmol/L Anion Gap 8 mmol/L BUN 9 (7-17) mg/dL Creatinine 0.61 (0.52-1.04) mg/dL Est GFR (CKD-EPI)AfAm >90 (>60 ml/min/1.73 sqM) Est GFR (CKD-EPI)NonAf >90 (>60 ml/min/1.73 sqM) Glucose 100 H (74-99) mg/dL Calcium 9.4 (8.4-10.2) mg/dL Magnesium 1.9 (1.6-2.3) mg/dL Total Bilirubin 0.8 (0.2-1.3) mg/dL AST 20 (14-36) U/L ALT 28 (4-34) U/L Alkaline Phosphatase 79 (38-126) U/L Total Protein 7.6 (6.3-8.2) g/dL Albumin 4.7 (3.5-5.0) g/dL HCG, Quant 42493.7 mIU/mL Urine Color Urine Appearance (Clear) Urine pH (5.0-8.0) Ur Specific [place] (1.001-1.035) Urine Protein (Negative) Urine Glucose (UA) (Negative) Urine Ketones (Negative) Urine Blood (Negative) Urine Nitrite (Negative) Urine Bilirubin (Negative) Urine Urobilinogen (<2.0) mg/dL Ur Leukocyte Esterase (Negative) Urine RBC (0-5) /hpf Urine WBC (0-5) /hpf Ur Squamous Epith Cells (0-4) /hpf Urine Bacteria (None) /hpf Urine Mucus (None) /hpf Blood Type O Negative Blood Type Recheck O Neg Bld Type Recheck Status No Disposition Clinical Impression: , Abdominal cramping Disposition: HOME SELF-CARE Condition: Good Instructions (If sedation given, give patient instructions): (ED) Additional Instructions: Return to the emergency department if symptoms worsen or improve. Keep follow- up appointment as scheduled tomorrow with psychiatrist and primary care provider this week. Follow-up with OB. Is patient prescribed a controlled substance at d/c from ED?: No Referrals: Kenyon Thakkar MD [Primary Care Provider] - 1-2 days Ruby Fragoso MD [STAFF PHYSICIAN] - 1-2 days Time of Disposition: 19:29
[2023-08-29 15:18] LABS: INR 1.1 (<1.2); Partial Thromboplastin Time 26.8 sec (22.0-30.0); Prothrombin Time 11.5 sec (10.0-12.5)
[2023-08-29 15:21] LABS: ALT 28 U/L (4-34); AST 20 U/L (14-36); African American GFR (CKD) >90 (>60 ml/min/1.73 sqM); Albumin 4.7 g/dL (3.5-5.0); Alkaline Phosphatase 79 U/L (38-126); Anion Gap 8 mmol/L; Blood Urea Nitrogen 9 mg/dL (7-17); Calcium 9.4 mg/dL (8.4-10.2); Carbon Dioxide 21 mmol/L (22-30); Chloride 108 mmol/L (98-107); Glucose 100 mg/dL (74-99); Magnesium 1.9 mg/dL (1.6-2.3); Non-African American GFR(CKD) >90 (>60 ml/min/1.73 sqM); Potassium 3.8 mmol/L (3.5-5.1); Sodium 137 mmol/L (137-145); Total Bilirubin 0.8 mg/dL (0.2-1.3); Total Protein 7.6 g/dL (6.3-8.2)
[2023-08-29] MEDS: SODIUM CHLORIDE 0.9% 1,000 ML IV STA (15:28)
[2023-08-29 15:37] LABS: HCG,Quantitative Serum 13421.7 mIU/mL
[2023-08-29 17:13] LABS: Appearance,Urine Cloudy (Clear); Bacteria,Urine Rare /hpf; Bilirubin,Urine Negative (Negative); Blood,Urine Negative (Negative); Color,Urine Light Yellow; Glucose,Urine (UA) Negative (Negative); Ketones,Urine 1+ (Negative); Leukocyte Esterase,Urine Small (Negative); Mucus,Urine Many /hpf; Nitrite,Urine Negative (Negative); PH, Urine 6.5 (5.0-8.0); Protein,Urine Negative (Negative); RBC,Urine 1 /hpf (0-5); Specific Gravity,Urine 1.014 (1.001-1.035); Squamous Epithelial Cell,Urine 6 /hpf (0-4); Urobilinogen,Urine <2.0 mg/dL (<2.0); WBC,Urine 2 /hpf (0-5)
[2023-08-29 18:23] VITALS: TEMP 98.9
--- NOTE | 2023-08-29 19:06 | US ---
EXAMINATION TYPE: Ultrasound OB less than equal to 14 weeks transvaginal DATE OF EXAM: 08/29/2023 3:09 PM COMPARISON: NONE CLINICAL INDICATION: Female, 27 years old with history of est 6 weeks, abdominal cramping; Pelvic pamela n EXAM PERFORMED: Transvaginal (TV) and Transabdominal (TA) ultrasound pelvis with limited color Doppl er used as needed EXAM MEASUREMENTS: GESTATIONAL AGE / DATING Physician Established: Not yet established Dates by LMP: (6 weeks/0 days) EDC: 04/23/2024 Dates by First Scan: No previous this is first scan Dates by Current Scan for: (5 weeks/6 days) EDC: 04/24/2024 MATERNAL ANATOMY Uterus: 7.7 x 5.1 x 6.3cm Right Ovary: 2.9 x 1.7 x 2.4cm Left Ovary: 2.9 x 2.0 x 1.4cm Post CDS / Adnexa: wnl Presence of free fluid: no Presence of corpus luteal cyst: right ovary - 1.5 x 1.4 x 1.8cm Presence of subchorionic bleed: no Color Doppler flow to both ovaries is confirmed. GESTATION / SURVEY CRL: 0.3cm (5 weeks/6 days) MSD: 1.1cm (5 weeks/1 days) Yolk Sac (normal less than 6mm): 2.3mm Heart Rate: 97 bpm Rhythm: Normal IUP: Viable IUP Date of LMP: 07/18/2023 Beta HcG (if available): Not available at time of exam IMPRESSION: 1. Intrauterine gestational sac is identified, containing a yolk sac. A nubbin of tissue adjacent to the yolk sac may represent pole and if so this measures 5 weeks 6 days. However accurate asses sment is limited by small size. Heart rate obtained is 97 BPM. 2. Recommend clinical correlation with follow-up of serial serum beta-hCG levels, and ultrasound/s a s needed.
[2023-08-29 19:55] VITALS: BP 110/74; PULSE 82; RESP 18
== END 2023-08-29 19:55 | disposition home or self-care (01) ==
LOC: EC 14:01
DX: O26.891 Other specified pregnancy related conditions, first trimester (principal); O99.331 Smoking (tobacco) complicating pregnancy, first trimester; Z3A.01 Less than 8 weeks gestation of pregnancy; Z87.891 Personal history of nicotine dependence; Z88.0 Allergy status to penicillin; Z88.1 Allergy status to other antibiotic agents
CPT/HCPCS: 36415; 76801; 76817; 80053; 81001; 83735; 84702; 85025; 85610; 85730; 86900; 86901; 96360; 99284

== ENCOUNTER 2023-09-06 22:03 | Emergency (ER) | payer OTHER ==
[2023-09-06 22:17] VITALS: TEMP 98.3
--- NOTE | 2023-09-06 22:35 | ED ---
Nausea/Vomiting/Diarrhea HPI - General Source: patient, RN notes reviewed Mode of arrival: ambulatory Limitations: no limitations <Alisa Nelson - Last Filed: 09/06/23 22:34> <Chas Bailon - Last Filed: 09/07/23 02:28> - General Chief complaint: Nausea/Vomiting/Diarrhea Stated complaint: NV dehydration weeks Time Seen by Provider: 09/06/23 22:34 - History of Present Illness Initial comments: Quick note: 27-year-old female approximately 7 weeks gestation presenting to the ER with a chief complaint of nausea and vomiting. Patient states for the past couple weeks she has been having a hard time keeping anything down but this morning has been unable to keep water or saltines down. She denies any abdominal pain or vaginal bleeding. Patient also states she has a psychiatric history and is feeling "very alone". Denies any suicidal or homicidal thoughts. (Alisa Nelson) Dictation was produced using [employer] dictation software. please excuse any grammatical, word or spelling errors. Chief Complaint: 27-year-old female 7 weeks presents with nausea vomiting History of Present Illness: Patient is 27-year-old female she has past medical history of bipolar disease. She takes psychiatric medications however since finding out she was she stopped taking several of them. Patient states that she is here for 1 to 2 days of nausea and vomiting. States that she has been dealing with nausea and vomiting since she found out she was . Denies any pelvic pain. No vaginal bleeding or vaginal discharge. Denies any suicidal or homicidal ideation. Denies any visual auditory hallucinations. Patient not paranoid. Mother at the bedside states that she has been acting normally recently. The ROS documented in this emergency department record has been reviewed and confirmed by me. Those systems with pertinent positive or negative responses have been documented in the HPI. All other systems are other negative and/or noncontributory. (Chas Bailon) - Related Data Home Medications Medication Instructions Recorded Confirmed LORazepam [Ativan] 0.5 mg PO DAILY PRN 02/12/20 02/12/20 Zolpidem Tartrate [Ambien] 10 mg PO HS PRN 02/12/20 02/12/20 Previous Rx's Medication Instructions Recorded cloZAPine [Clozaril] 300 mg PO HS #45 tab 09/03/19 traZODone HCL [Desyrel] 200 mg PO HS #60 tab 09/03/19 Nirmatrelvir/Ritonavir [Paxlovid 1 each PO BID #10 tab 10/31/21 2X150 mg-100 mg (Eua)] Ondansetron Odt [Zofran Odt] 4 mg PO Q8HR PRN #10 tab 10/31/21 Doxylamine Succinate/Vit B6 1 tab PO BID PRN #24 tab 09/07/23 [Diclegis Dr 10-10 mg Tablet] Allergies Allergy/AdvReac Type Severity Reaction Status Date / Time No Known Allergies Allergy Verified 09/06/23 22:12 Review of Systems ROS Other: All systems not noted in ROS Statement are negative. <Alisa Nelson - Last Filed: 09/06/23 22:34> ROS Other: All systems not noted in ROS Statement are negative. <Chas Bailon - Last Filed: 09/07/23 02:28> ROS Statement: Those systems with pertinent positive or pertinent negative responses have been documented in the HPI. 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 History of Any Multi-Drug Resistant Organisms: None Reported Past Surgical History: No Surgical Hx Reported Past Anesthesia/Blood Transfusion Reactions: No Reported Reaction, Motion Sickness Past Psychological History: Anxiety, Bipolar, Depression Smoking Status: Former smoker Past Alcohol Use History: None Reported Past Drug Use History: None Reported - Past Family History Father Family Medical History: Cancer Additional Family Medical History / Comment(s): Father had thyroid cancer with surgery and radioactive iodine. Mother Family Medical History: Cancer Additional Family Medical History / Comment(s): Mother had endometrial polyp cancer with hysterectomy. <Alisa Nelson - Last Filed: 09/06/23 22:34> General Exam Limitations: no limitations <Alisa Nelson - Last Filed: 09/06/23 22:34> <Chas Bailon - Last Filed: 09/07/23 02:28> - General Exam Comments Initial Comments: Visual Physical Exam Vital signs reviewed General: Well-appearing, nontoxic, no acute distress. Head: Normocephalic, atraumatic Eyes: PERRLA, EOMI ENT: Airway patent Chest: Nonlabored breathing Skin: No visual rash, normal skin tone Neuro: Alert and oriented 3 Musculoskeletal: No gross abnormalities (Alisa Nelson) PHYSICAL EXAM: General Impression: Alert and oriented x3, not in acute distress HEENT: Normocephalic atraumatic, extra-ocular movements intact, pupils equal and reactive to light bilaterally, mucous membranes moist. Cardiovascular: Heart regular rate and rhythm Chest: Able to complete full sentences, no retractions, no tachypnea Abdomen: abdomen soft, non-tender, non-distended, no organomegaly Musculoskeletal: Pulses present and equal in all extremities, no peripheral edema Motor: no focal deficits noted Neurological: CN II-XII grossly intact, no focal motor or sensory deficits noted Skin: Intact with no visualized rashes Psych: Normal affect and mood (Chas Bailon) Course Vital Signs 09/06/23 09/07/23 22:13 01:44 Temperature 98.3 F Pulse Rate 74 64 Respiratory 18 16 Rate Blood Pressure 122/82 102/67 O2 Sat by Pulse 97 99 Oximetry Medical Decision Making <Alisa Nelson - Last Filed: 09/06/23 22:34> - Lab Data Result diagrams: 09/06/23 23:39 09/06/23 23:39 <Chas Bailon - Last Filed: 09/07/23 02:28> - Medical Decision Making I performed the quick note portion of this chart. Electronically signed by Alisa Nelson PA-C (Alisa Nelson) Was pt. sent in by a medical professional or institution ([facility], [employer], urgent care, hospital, or shelter...) When possible be specific @ -No Did you speak to anyone other than the patient for history (EMS, parent, family, police, friend...)? What history was obtained from this source @ -No Did you review nursing and triage notes (agree or disagree)? Why? @ -I reviewed and agree with nursing and triage notes Were old charts reviewed (outside hosp., previous admission, EMS record, old EKG, old radiological studies, urgent care reports/EKG's, shelter records)? Report findings @ -No old charts were reviewed Differential Diagnosis (chest pain, altered mental status, abdominal pain women, abdominal pain men, vaginal bleeding, musculoskeletal, weakness, fever, dyspnea, syncope, headache, dizziness, GI bleed, back pain, seizure, CVA, palpatations, mental health)? @ -Gastroenteritis, emesis gravidarum, colitis EKG interpreted by me (3pts min.). @ -None done X-rays interpreted by me (1pt min.). @ -None done CT interpreted by me (1pt min.). @ -None done U/S interpreted by me (1pt. min.). @ -None done What testing was considered but not performed or refused? (CT, X-rays, U/S, labs)? Why? @ -None What meds were considered but not given or refused? Why? @ -None Did you discuss the management of the patient with other professionals (professionals i.e. , PA, GROUNDS WORKER, lab, RT, psych nurse, social science manager, talent management manager, teacher, aoc director combat operations officer, casework specialist)? Give summary @ -No Was smoking cessation discussed for >3mins.? @ -No Was critical care preformed (if so, how long)? @ -No Were there social determinants of health that impacted care today? How? (Homelessness, low income, unemployed, alcoholism, drug addiction, transportation, low edu. Level, literacy, decrease access to med. care, alf, rehab)? @ -No Was there de-escalation of care discussed even if they declined (Discuss DNR or withdrawal of care, Hospice)? DNR status @ -No What co-morbidities impacted this encounter? (DM, HTN, Smoking, COPD, CAD, Cancer, CVA, ARF, Chemo, Hep., AIDS, mental health diagnosis, sleep apnea, mor bid obesity)? @ -None Was patient admitted / discharged? Hospital course, mention meds given and [place], prescriptions, significant lab abnormalities, going to OR and other pertinent info. @ -27-year-old female presents to the ER for nausea vomiting of . Vital signs stable. Patient no acute distress at the bedside. Labs are unremarkable. Patient given IV fluids and nausea medications with improvement of symptoms. Patient given prescription for medics. Advised follow-up with primary care doctor. Undiagnosed new problem with uncertain prognosis? @ -No Drug Therapy requiring intensive monitoring for toxicity (Heparin, Nitro, Insulin, Cardizem)? @ -No Were any procedures done? @ -No Diagnosis/symptom? Acute, or Chronic, or Acute on Chronic? Uncomplicated (without systemic symptoms) or Complicated (systemic symptoms)? @ -Nausea and vomiting in Side effects of treatment? @ -No Exacerbation, Progression, or Severe Exacerbation? @ -No Poses a threat to life or bodily function? How? (Chest pain, [place], [place], pneumonia, PE, COPD, DKA, ARF, appy, cholecystitis, CVA, Diverticulitis, Homicidal, Suicidal, threat to staff... and all critical care pts) @ -yes (Chas Bailon) - Lab Data Lab Results 09/06/23 09/06/23 09/07/23 Range/Units 23:39 23:39 01:44 WBC 9.1 (3.8-10.6) k/uL RBC 5.16 (3.80-5.40) m/uL Hgb 14.9 (11.4-16.0) gm/dL Hct 45.9 (34.0-46.0) % MCV 88.9 (80.0-100.0) fL MCH 28.9 (25.0-35.0) pg MCHC 32.5 (31.0-37.0) g/dL RDW 12.9 (11.5-15.5) % Plt Count 235 (150-450) k/uL MPV 8.7 Neutrophils % 74 % Lymphocytes % 19 % Monocytes % 5 % Eosinophils % 1 % Basophils % 0 % Neutrophils # 6.7 (1.3-7.7) k/uL Lymphocytes # 1.7 (1.0-4.8) k/uL Monocytes # 0.4 (0-1.0) k/uL Eosinophils # 0.1 (0-0.7) k/uL Basophils # 0.0 (0-0.2) k/uL Sodium 137 (137-145) mmol/L Potassium 3.5 (3.5-5.1) mmol/L Chloride 104 (98-107) mmol/L Carbon Dioxide 18 L (22-30) mmol/L Anion Gap 15 mmol/L BUN 12 (7-17) mg/dL Creatinine 0.58 (0.52-1.04) mg/dL Est GFR (CKD-EPI)AfAm >90 (>60 ml/min/1.73 sqM) Est GFR (CKD-EPI)NonAf >90 (>60 ml/min/1.73 sqM) Glucose 75 (74-99) mg/dL Calcium 9.8 (8.4-10.2) mg/dL Total Bilirubin 0.7 (0.2-1.3) mg/dL AST 19 (14-36) U/L ALT 19 (4-34) U/L Alkaline Phosphatase 71 (38-126) U/L Total Protein 7.6 (6.3-8.2) g/dL Albumin 4.9 (3.5-5.0) g/dL Urine Color Yellow Urine Appearance Turbid H (Clear) Urine pH 6.0 (5.0-8.0) Ur Specific [place] 1.033 (1.001-1.035) Urine Protein 2+ H (Negative) Urine Glucose (UA) Negative (Negative) Urine Ketones 4+ H (Negative) Urine Blood Negative (Negative) Urine Nitrite Negative (Negative) Urine Bilirubin Negative (Negative) Urine Urobilinogen 3.0 (<2.0) mg/dL Ur Leukocyte Esterase Large H (Negative) Urine RBC 20 H (0-5) /hpf Urine WBC 54 H (0-5) /hpf Ur Squamous Epith Cells 67 H (0-4) /hpf Urine Bacteria Moderate H (None) /hpf Urine Mucus Many H (None) /hpf Disposition <Alisa Nelson - Last Filed: 09/06/23 22:34> Is patient prescribed a controlled substance at d/c from ED?: No Time of Disposition: 02:26 <Chas Bailon - Last Filed: 09/07/23 02:28> Clinical Impression: Hyperemesis Disposition: HOME SELF-CARE Condition: Fair Instructions (If sedation given, give patient instructions): Hyperemesis Gravidarum (ED) Prescriptions: Doxylamine Succinate/Vit B6 [Russs Dr 10-10 mg Tablet] 1 tab PO BID PRN #24 tab PRN Reason: Nausea And Vomiting Referrals: Kenyon Thakkar MD [Primary Care Provider] - 1-2 days
[2023-09-06 23:50] LABS: Basophils % (A) 0 %; Eosinophils # (A) 0.1 k/uL (0-0.7); Eosinophils % (A) 1 %; HCT 45.9 % (34.0-46.0); HGB 14.9 gm/dL (11.4-16.0); Lymphocytes # (A) 1.7 k/uL (1.0-4.8); Lymphocytes % (A) 19 %; MCH 28.9 pg (25.0-35.0); MCHC 32.5 g/dL (31.0-37.0); MCV 88.9 fL (80.0-100.0); Mean Platelet Volume 8.7; Monocytes # (A) 0.4 k/uL (0-1.0); Monocytes % (A) 5 %; Neutrophils # (A) 6.7 k/uL (1.3-7.7); Neutrophils % (A) 74 %; Platelet Count 235 k/uL (150-450); RBC 5.16 m/uL (3.80-5.40); RDW 12.9 % (11.5-15.5); WBC 9.1 k/uL (3.8-10.6)
[2023-09-07] MEDS: METOCLOPRAMIDE 5 MG/ML 2 ML VIAL IVP STA (00:38)
[2023-09-07] MEDS: SODIUM CHLORIDE 0.9% 1,000 ML IV STA (00:39)
[2023-09-07 00:48] LABS: ALT 19 U/L (4-34); AST 19 U/L (14-36); African American GFR (CKD) >90 (>60 ml/min/1.73 sqM); Albumin 4.9 g/dL (3.5-5.0); Alkaline Phosphatase 71 U/L (38-126); Anion Gap 15 mmol/L; Blood Urea Nitrogen 12 mg/dL (7-17); Calcium 9.8 mg/dL (8.4-10.2); Carbon Dioxide 18 mmol/L (22-30); Chloride 104 mmol/L (98-107); Glucose 75 mg/dL (74-99); Non-African American GFR(CKD) >90 (>60 ml/min/1.73 sqM); Potassium 3.5 mmol/L (3.5-5.1); Sodium 137 mmol/L (137-145); Total Bilirubin 0.7 mg/dL (0.2-1.3); Total Protein 7.6 g/dL (6.3-8.2)
[2023-09-07 01:45] VITALS: BP 102/67
[2023-09-07 02:18] LABS: Appearance,Urine Turbid (Clear); Bacteria,Urine Moderate /hpf; Bilirubin,Urine Negative (Negative); Blood,Urine Negative (Negative); Color,Urine Yellow; Glucose,Urine (UA) Negative (Negative); Ketones,Urine 4+ (Negative); Leukocyte Esterase,Urine Large (Negative); Mucus,Urine Many /hpf; Nitrite,Urine Negative (Negative); Protein,Urine 2+ (Negative); RBC,Urine 20 /hpf (0-5); Specific Gravity,Urine 1.033 (1.001-1.035); Squamous Epithelial Cell,Urine 67 /hpf (0-4); WBC,Urine 54 /hpf (0-5)
[2023-09-07 02:40] VITALS: PULSE 69; RESP 18
== END 2023-09-07 02:38 | disposition home or self-care (01) ==
LOC: EC 22:03
DX: O21.0 Mild hyperemesis gravidarum (principal); Z87.891 Personal history of nicotine dependence; Z3A.01 Less than 8 weeks gestation of pregnancy
CPT/HCPCS: 99284 ×2; 96374 ×2; 96361 ×2; 36415; 80053; 85025; 81001; J2765